=== PATIENT | male | born 1960 | race Caucasian/White ===

== ENCOUNTER → 2017-07-06 | Outpatient (CLI) | payer OTHER ==
[2017-07-06 11:15] LABS: Anion Gap 12 mmol/L; Blood Urea Nitrogen 11 mg/dL (9-20); Calcium 9.7 mg/dL (8.4-10.2); Carbon Dioxide 30 mmol/L (22-30); Chloride 100 mmol/L (98-107); Cholesterol 232 mg/dL (<200); Glucose 102 mg/dL (74-99); HDL Cholesterol 49 mg/dL (40-60); Non-African American GFR(MDRD) >60 (>60 ml/min/1.73 sqM); Potassium 4.7 mmol/L (3.5-5.1); Sodium 142 mmol/L (137-145)
[2017-07-06 12:01] LABS: Hemoglobin A1C 5.2 % (4.2-6.1)
== END | disposition home or self-care (01) ==
LOC: LABWHC1 09:56
PROVIDERS: ATTEND Internal Medicine Endocrinology, Diabetes & Metabolism
DX: E78.00 Pure hypercholesterolemia, unspecified (principal); E55.9 Vitamin D deficiency, unspecified; E06.3 Autoimmune thyroiditis
CPT/HCPCS: 36415; 80048; 80061; 82306; 83036; 84439; 84443

== ENCOUNTER → 2018-02-16 | Outpatient (CLI) | payer OTHER ==
--- NOTE | 2018-02-16 18:24 | CONS ---
CONSULTATION REASON FOR CONSULTATION: This is a consultation note for sleep apnea. HISTORY OF PRESENT ILLNESS: This is a 58-year-old male patient suspected of obstructive sleep apnea based on history of snoring and fragmented sleep. The patient's sleep has been fragmented for many years and he used to work up on frequent occasions, either for urination or for other reasons that are not clear. Never the less, as the patient is taking care of his who has suffered a stroke, he is waking up more for now as he attends to her medical needs and this has caused further fragmentation of his sleep in general. He is currently going to bed around 10:00 pm waking up 6:30 in the morning. He wakes up tired and he is having troubles with drowsiness and sleepiness during the day. He falls asleep during the day. He worries about his sleep too much because of the above- mentioned symptoms. He is coming in for further investigation and there was a concern of him having obstructive sleep apnea. PAST MEDICAL HISTORY: Obesity, hypothyroidism, bronchial asthma, COPD, migraine, anxiety. He has a remote history of obstructive sleep apnea. He was briefly given CPAP therapy in the past. He did not follow up on treatment and he currently he is not undergoing any treatment. He is presenting for evaluation. PAST MEDICAL HISTORY: Includes left calf lump removal in 2005. Left neck lump removal in 2016, cholecystectomy and double hernia repair. OUTPATIENT MEDICATION LIST: Includes [place] 7.5 every 4 hours. Lasix 20 mg p.o. daily. Toprol 50 mg p.o. twice a day, Levoxyl 175 mcg p.o. daily, Effexor 37.5, 1 tablet a day. Xanax 1 mg t.i.d., Nexium 40 mg p.o. daily, Ventolin rescue inhaler on a p.r.n. basis and nortriptyline 20 mg twice a day. DRUG ALLERGIES: THE PATIENT IS ALLERGIC TO BACTRIM, PENICILLIN, SULFA, BIAXIN AND EGGS. SOCIAL HISTORY: He is an ex-smoker. He quit smoking 1994. No history of alcohol and no history of IV drugs. FAMILY HISTORY: Negative for sleep apnea. REVIEW OF SYSTEMS: 12-point review of system was done and positive findings all mentioned above in the history of present illness. Of significance is the absence of any grinding of the teeth. No sleepwalking or sleep talking. He claims to have nightmares. No restlessness lower extremities. No dry mouth. No anxiety or panic attacks. No palpitation. No heartburn. No claustrophobia. PHYSICAL EXAMINATION: BP is 130/79, pulse is 58, respirations 16, temperature 97.8. Saturation 95% on room air. Weight is 267. Height is 5 feet 10 inches. Neck size is 17.5 inches. GENERAL APPEARANCE: Calm, comfortable in no acute distress. Head is atraumatic, normocephalic. NECK: Supple. There is no JVD. No goiter or neck masses. Mallampati class IV. LUNGS: Clear to auscultation. HEART: Sounds are regular rate and rhythm. Normal S1, S2. No S3, S4. No murmurs. ABDOMEN: Soft, nontender. No organomegaly. EXTREMITIES: No edema. No cyanosis or clubbing. SKIN: Negative for any wounds or ulceration. IMPRESSION: 1. Obstructive sleep apnea clinically suspected, under investigation. 2. There is a sleep fragmentation and frequent nocturnal arousals. This is partly related to the social aspects of life as the patient has been taking care of an ill . Obstructive sleep apnea could be also contributing to his sleep fragmentation. 3. Obesity with a BMI of 37.7. 4. Hypothyroidism. 5. Chronic obstructive pulmonary disease/asthma. 6. Migraines. 7. Chronic anxiety. PLAN: 1. Polysomnogram. 2. Weight loss. 3. Encourage improving sleep hygiene measures. 4. We will continue to follow. MAGGIE / LUISN: [id number] /
== END | disposition home or self-care (01) ==
LOC: SLEEP 09:43
PROVIDERS: ATTEND Internal Medicine Critical Care Medicine
DX: R06.83 Snoring (principal); E66.9 Obesity, unspecified; E03.9 Hypothyroidism, unspecified; J44.9 Chronic obstructive pulmonary disease, unspecified; G43.909 Migraine, unspecified, not intractable, without status migrainosus; F41.8 Other specified anxiety disorders; Z68.37 Body mass index [BMI] 37.0-37.9, adult; Z79.891 Long term (current) use of opiate analgesic; Z79.899 Other long term (current) drug therapy; Z88.2 Allergy status to sulfonamides; Z88.0 Allergy status to penicillin; Z91.012 Allergy to eggs
CPT/HCPCS: 99211

== ENCOUNTER 2018-06-09 07:45 | Day surgery (SDC) | payer OTHER ==
[2018-06-02 16:22] VITALS: BMI 38.5
[~2018-06-09 07:45] MED LIST: DEXAMETHASONE SOD PHOSPHATE 10 MG/ML 1 ML VIAL IV ONE; HEPARIN SODIUM,PORCINE 5,000 UNIT/ML 1 ML VIAL SQ ONE; LACTATED RINGERS 1,000 ML IV SCH; LIDOCAINE 1% 20 ML VIAL (10MG/ML) FOR IV START INTRADERMA PRN; MIDAZOLAM 2 MG/2 ML VIAL IV PRN; ONDANSETRON 4 MG/2 ML VIAL IVP ONE; SCOPOLAMINE 1.5MG/72HR PATCH TRANSDERM ONE; ceFAZolin IN SWFI 2 GM/20 ML SYRINGE IVP ONE
[2018-06-09] MEDS ORDERED: LACTATED RINGERS 1,000 ML IV ONE (08:32)
[2018-06-09] MEDS ORDERED: METOPROLOL SUCCINATE (ER) 50 MG TAB.ER.24H PO SCH (09:00)
[2018-06-09] MEDS ORDERED: SUCCINYLCHOLINE CHLORIDE 100 MG/5 ML SYR IV ONE (09:47)
[2018-06-09] MEDS ORDERED: ROCURONIUM BROMIDE 10 MG/ML 10 ML VIAL IV ONE (09:47)
[2018-06-09] MEDS ORDERED: MIDAZOLAM 2 MG/2 ML VIAL ONE (09:47)
[2018-06-09] MEDS ORDERED: GLYCOPYRROLATE 0.2 MG/ML 2 ML VIAL ONE (09:47)
[2018-06-09] MEDS ORDERED: NEOSTIGMINE 1 MG/ML 10 ML VIAL ONE (09:47)
[2018-06-09] MEDS ORDERED: LIDOCAINE 1% INJ 10MG/ML (20 ML MDV) ONE (09:47)
[2018-06-09] MEDS ORDERED: PROPOFOL 10 MG/ML 20 ML VIAL IV ONE (09:47)
[2018-06-09] MEDS ORDERED: fentaNYL (PF) 50 MCG/ML 2 ML AMP ONE (09:47)
[2018-06-09] MEDS ORDERED: ONDANSETRON 4 MG/2 ML VIAL ONE (09:47)
[2018-06-09] MEDS ORDERED: ROPIVACAINE 5 MG/ML 30 ML VIAL MISCELLANE ONE ×2 (10:08)
[2018-06-09] MEDS ORDERED: HYDROcodone/APAP 5-325MG 1 EACH TAB PO PRN (10:39)
[2018-06-09] MEDS ORDERED: NALOXONE 0.4 MG/ML 1 ML VIAL IV PRN (10:39)
--- NOTE | 2018-06-09 10:42 | P.OP ---
Date of Procedure: 06/09/18 Procedure(s) Performed: PREOPERATIVE DIAGNOSIS: Incisional hernia POSTOPERATIVE DIAGNOSIS: Same PROCEDURE: Incisional herniorrhaphy with mesh SURGEON: Daquan EBL: Minimal ANESTHESIA: General COMPLICATIONS: None OPERATIVE PROCEDURE: The patient was placed in the operating table in the supine position. A periumbilical incision was made using the scalpel. The subcutaneous tissues were dissected bluntly. The hernia sac was identified. The umbilical attachments to the fascia were divided using electrocautery. The hernia sac was excised. A 4.3 cm ventral ex mesh was placed beneath the incisional hernia defect which measured approximately 1.5 cm in diameter. The pre-peroneal space was dissected using electrocautery. The mesh was sutured to the fascia using 0 Ethibond transfer fascial sutures. The defect was closed using interrupted vest over pants 0 Ethibond sutures. The subcutaneous tissues were reapproximated using inverted 3-0 Vicryl sutures. The umbilicus was tacked back down to the fascia using a 3-0 Vicryl suture. The skin was closed using 4-0 Monocryl sutures. Steri-Strips and sterile dressings were then applied. DISPOSITION: Stable to recovery room
[2018-06-09 10:57] VITALS: TEMP 97.2
--- NOTE | 2018-06-09 11:09 | P.ONQ ---
Anesthesiology Proc Note - PNB - Peripheral Nerve Block Performed Bilateral Rectus Abdominis Single Procedure Start Time: 08:30 Procedure Stop Time: 08:40 Indication: Acute Post-Operative Pain, Requested by physician Sedation Type: Sedate with meaningful contact maintained Preparation: Sterile Prep Position: Supine Needle Size: 50mm (2") Needle Gauge: 21 Technique: Ultrasound (15ml 0.5% Ropi infiltrated bilaterally)
[2018-06-09] MEDS: fentaNYL (PF) 50 MCG/ML 2 ML AMP IVP ONE ×4 (11:15→11:43)
[2018-06-09 12:09] VITALS: RESP 18
[2018-06-09] MEDS ORDERED: HYDROcodone/APAP 5-325MG 1 EACH TAB PO ONE (12:20)
[2018-06-09 12:56] VITALS: BP 132/82; PULSE 94
== END 2018-06-09 13:29 | disposition home or self-care (01) ==
LOC: OR 07:45
PROVIDERS: ATTEND Surgery
DX: K43.2 Incisional hernia without obstruction or gangrene (principal); E66.9 Obesity, unspecified; Z68.38 Body mass index [BMI] 38.0-38.9, adult; E03.9 Hypothyroidism, unspecified; F41.9 Anxiety disorder, unspecified; G47.33 Obstructive sleep apnea (adult) (pediatric); E78.00 Pure hypercholesterolemia, unspecified; K21.9 Gastro-esophageal reflux disease without esophagitis; J44.9 Chronic obstructive pulmonary disease, unspecified; E11.9 Type 2 diabetes mellitus without complications; K52.9 Noninfective gastroenteritis and colitis, unspecified; Z79.2 Long term (current) use of antibiotics; Z79.890 Hormone replacement therapy; Z79.891 Long term (current) use of opiate analgesic; Z79.899 Other long term (current) drug therapy; Z88.0 Allergy status to penicillin; Z88.2 Allergy status to sulfonamides; Z88.1 Allergy status to other antibiotic agents; Z91.012 Allergy to eggs
CPT/HCPCS: 49560; 49568; 64488; C1781; J2250; J1644; J1100; J2710; J2405; J2001; J3010; J2795; J0330; J2704; J0690

== ENCOUNTER 2018-11-22 11:00 | Observation (INO) | payer OTHER ==
[2018-11-22 11:41] LABS: Basophils % (A) 1 %; Eosinophils # (A) 0.1 k/uL (0-0.7); Eosinophils % (A) 2 %; HCT 47.1 % (39.0-53.0); HGB 15.4 gm/dL (13.0-17.5); Lymphocytes # (A) 1.4 k/uL (1.0-4.8); Lymphocytes % (A) 24 %; MCH 26.7 pg (25.0-35.0); MCHC 32.8 g/dL (31.0-37.0); MCV 81.5 fL (80.0-100.0); Mean Platelet Volume 6.7; Monocytes # (A) 0.4 k/uL (0-1.0); Monocytes % (A) 6 %; Neutrophils # (A) 3.9 k/uL (1.3-7.7); Neutrophils % (A) 65 %; Platelet Count 202 k/uL (150-450); RBC 5.78 m/uL (4.30-5.90); RDW 13.8 % (11.5-15.5)
[2018-11-22 11:45] LABS: Partial Thromboplastin Time 25.5 sec (22.0-30.0); Prothrombin Time 10.3 sec (9.0-12.0)
--- NOTE | 2018-11-22 11:49 | ED ---
Chest Pain HPI - General Chief Complaint: Chest Pain Stated Complaint: HEART PROBLEM Time Seen by Provider: 11/22/18 11:10 Source: patient, RN notes reviewed, old records reviewed Mode of arrival: ambulatory Limitations: no limitations - History of Present Illness Initial Comments: This is a 58-year-old male the ER for evaluation of positive chest pain left shoulder pain left arm pain. Pain rating on his back. Pain rating to his back from his chest. Patient does have history of prior heart disease. No recent travel history no sick contacts does admit to some increased swelling in his legs occasional shortness of breath. Patient states pain goes down the outer side of his left arm all the way into his left fourth and fifth digit. No cough or congestion. No recent fevers. MD Complaint: chest pain -: week(s) Onset: during rest, during exertion, after eating, awoke with symptoms Pain Location: substernal, left chest Pain Radiation: LUE Severity: moderate Severity scale (1-10): 3 Quality: aching, sharp Consistency: constant Improves With: nothing Worsens With: nothing Context: recent immobilization Anginal Symptoms: nausea Other Symptoms: fever Treatments Prior to Arrival: none - Related Data Home Medications Medication Instructions Recorded Confirmed ALPRAZolam [Xanax] 1 mg PO TID 06/20/14 11/22/18 Esomeprazole Magnesium [NexIUM] 40 mg PO DAILY@1200 06/20/14 11/22/18 Furosemide [Lasix] 40 mg PO DAILY 06/20/14 11/22/18 Metoprolol Succinate (ER) [Toprol 50 mg PO BID 06/20/14 11/22/18 XL] Nortriptyline [Pamelor] 20 mg PO HS 06/20/14 11/22/18 Albuterol Inhaler [Ventolin Hfa 1 - 2 puff INHALATION RT-Q6H PRN 06/02/18 Inhaler] Ergocalciferol (Vitamin D2) 50,000 unit PO FR 06/02/18 11/22/18 [Vitamin D2] HYDROcodone/APAP 10-325MG [[place] 1 tab PO QID PRN 06/02/18 11/22/18 10-325] Levothyroxine Sodium [Levoxyl] 200 mcg PO DAILY 06/02/18 11/22/18 Meloxicam [Mobic] 7.5 mg PO DAILY 11/22/18 11/22/18 Allergies Allergy/AdvReac Type Severity Reaction Status Date / Time shellfish derived [Shellfish] Allergy Unknown Swelling Verified 11/22/18 11:43 caffeine Allergy Rapid Verified 11/22/18 11:43 Heart Rate clarithromycin [From Biaxin] Allergy Nausea & Verified 11/22/18 11:43 Vomiting hydromorphone HCl Allergy Vomiting, Verified 11/22/18 11:43 [From Dilaudid] Rash metoclopramide HCl Allergy Vomiting Verified 11/22/18 11:43 [From Reglan] blood Penicillins Allergy Rapid Verified 11/22/18 11:43 Heart Rate Sulfa (Sulfonamide Allergy Rash/Hives, Verified 11/22/18 11:43 Antibiotics) NAUSEA sulfamethoxazole Allergy Nausea & Verified 11/22/18 11:43 [From Bactrim] Vomiting trimethoprim [From Bactrim] Allergy Nausea & Verified 11/22/18 11:43 Vomiting egg AdvReac Nausea & Verified 11/22/18 11:43 Vomiting Iodinated Contrast- Oral and AdvReac Swelling Verified 11/22/18 11:43 IV Dye [Iodinated Contrast Media - IV Dye] Review of Systems ROS Statement: Those systems with pertinent positive or pertinent negative responses have been documented in the HPI. ROS Other: All systems not noted in ROS Statement are negative. EKG Findings - EKG Comments: EKG Findings:: EKG shows normal sinus rhythm rate of 71, MA 174, QRS 96, QTc 412 Past Medical History Past Medical History: Asthma, Chest Pain / Angina, Heart Failure, COPD, Diabetes Mellitus, GERD/Reflux, GI Bleed, Hyperlipidemia, Hypertension, Memory Impairment, Mitral Valve Prolapse (MVP), Sleep Apnea/CPAP/BIPAP, Thyroid Disorder Additional Past Medical History / Comment(s): MIGRAINES,ARRHYTHMIA-RAPID HEART BEAT, CARDIAC BRIDGE, COLITIS, DIVERTICULUTIS, NON ULCER DYSPEPSIA.,SHORT TERM MEMORY LOSS, CYSTS ON LIVER, DDD, BACK PAIN, USES CANE, HYPOGLYCEMIA ., UMBILICAL HERNIA. , PT STATES JUST GETTING OVER A "COLD" WITH A COUGH & SORE THROAT- TAKING CIPRO- PT TO NOTIFY DR CHEEMA IF COLD SYMPTOMS CONTINUE. History of Any Multi-Drug Resistant Organisms: MRSA Date of last positivie culture/infection: 2015 MDRO Source:: SINUS Past Surgical History: Breast Surgery, Cholecystectomy, Heart Catheterization, Hernia Repair, Orthopedic Surgery, Tonsillectomy Additional Past Surgical History / Comment(s): CHEST WALL-LUMP REMOVED, LEFT SHOULDER,LEFT LEG-LUMPECTOMY X 3, BILAT NECK-LUMPECTOMY, KNEE-ARTHROSCOPIC, COLONOSCOPY, EGD, LIVER BX., BREAST LUMPECTOMY. Past Anesthesia/Blood Transfusion Reactions: Motion Sickness, Postoperative Nausea & Vomiting (PONV) Additional Past Anesthesia/Blood Transfusion Reaction / Comment(s): PROBLEM WITH REGLAN GIVEN- VOMITED BLOOD Past Psychological History: Anxiety, Depression Smoking Status: Former smoker Past Alcohol Use History: None Reported Past Drug Use History: None Reported - Past Family History Mother Family Medical History: Cancer Father Family Medical History: Cancer Brother(s) Family Medical History: Cancer General Exam Limitations: no limitations General appearance: alert, in no apparent distress Head exam: Present: atraumatic, normocephalic, normal inspection Eye exam: Present: normal appearance, PERRL, EOMI. Absent: scleral icterus, conjunctival injection, periorbital swelling ENT exam: Present: normal exam, mucous membranes moist Neck exam: Present: normal inspection. Absent: tenderness, meningismus, lymphadenopathy Respiratory exam: Present: normal lung sounds bilaterally. Absent: respiratory distress, wheezes, rales, rhonchi, stridor Cardiovascular Exam: Present: regular rate, normal rhythm, normal heart sounds. Absent: systolic murmur, diastolic murmur, rubs, gallop, clicks GI/Abdominal exam: Present: soft, normal bowel sounds. Absent: distended, tenderness, guarding, rebound, rigid Extremities exam: Present: normal inspection, full ROM, normal capillary refill. Absent: tenderness, pedal edema, joint swelling, calf tenderness Back exam: Present: normal inspection Neurological exam: Present: alert, oriented X3, CN II-XII intact Psychiatric exam: Present: normal affect, normal mood Skin exam: Present: warm, dry, intact, normal color. Absent: rash Course Vital Signs 11/22/18 11:02 Temperature 97.7 F Pulse Rate 72 Respiratory 20 Rate Blood Pressure 151/95 O2 Sat by Pulse 100 Oximetry - Reevaluation(s) Reevaluation #1: 11/22/18 14:50 Medical records reviewed Reevaluation #2: 02/18/19 14:50 Patient still remains a chest pain left arm left shoulder pain Chest Pain MDM - MDM 58 male the ER for evaluation of chest pain. Patient has normal EKG normal troponin and CTA negative, will admit for cardiac observation Critical Care Time Critical Care Time: Yes Total Critical Care Time: 31 Disposition Clinical Impression: Chest pain Disposition: ADMITTED IP TO THIS HOSP Condition: Undetermined Is patient prescribed a controlled substance at d/c from ED?: No
[2018-11-22 11:54] LABS: Creatine Kinase 160 U/L (55-170)
[2018-11-22] MEDS ORDERED: MORPHINE SULFATE 4 MG/ML SYRINGE IVP STA ×2 (11:55→15:12)
[2018-11-22] MEDS ORDERED: methylPREDNISolone SOD SUCCI 125 MG/2 ML VIAL IV STA (11:57)
[2018-11-22] MEDS ORDERED: diphenhydrAMINE 50 MG/ML 1 ML VIAL IVP STA (11:57)
[2018-11-22] MEDS ORDERED: FAMOTIDINE 20 MG/2 ML VIAL IV STA (11:57)
[2018-11-22 12:01] LABS: ALT 33 U/L (21-72); AST 41 U/L (17-59); Albumin 4.3 g/dL (3.5-5.0); Alkaline Phosphatase 30 U/L (38-126); Anion Gap 9 mmol/L; Blood Urea Nitrogen 15 mg/dL (9-20); Calcium 9.4 mg/dL (8.4-10.2); Carbon Dioxide 27 mmol/L (22-30); Chloride 103 mmol/L (98-107); Glucose 99 mg/dL (74-99); Lipase 117 U/L (23-300); Magnesium 1.6 mg/dL (1.6-2.3); Sodium 139 mmol/L (137-145); Total Protein 7.4 g/dL (6.3-8.2)
[2018-11-22 12:05] LABS: Potassium 4.4 mmol/L (3.5-5.1)
[2018-11-22 12:07] LABS: Creatine Kinase MB 4.5 ng/mL (0.0-2.4); Troponin I <0.012 ng/mL (0.000-0.034)
--- NOTE | 2018-11-22 12:07 | XR ---
EXAMINATION TYPE: XR chest 2V DATE OF EXAM: 11/22/2018 COMPARISON: 01/28/2018 HISTORY: 58-year-old male with chest pain and TECHNIQUE: PA and lateral views FINDINGS: Heart normal size. Slight prominence to the aortic knob. Mild interstitial prominence. Slightly low [place] volumes and cardiovascular markings. No ryan consolidation or pleural effusion. IMPRESSION: Hypoventilatory changes. There is prominence to the aortic knob/superior mediastinum. If concern for vascular injury, CT can better evaluate. We note that the patient is already scheduled for a CTA.
--- NOTE | 2018-11-22 13:44 | CT ---
CT CHEST FOR PULMONARY EMBOLISM. EXAMINATION TYPE: CT angio chest DATE OF EXAM: 11/22/2018 INDICATION: shortness of breath CT DLP: 599.5 mGycm, Automated exposure control for dose reduction was used. CONTRAST: Patient injected with 100 mL of Isovue 370. COMPARISON: 04/09/2011 TECHNIQUE: CT of the chest is performed on a spiral scan at 2 mm thick sections. Study is performed with intravenous contrast timed for evaluation for pulmonary embolism. This will limit additional po rtions of the evaluation. 3-D MIP images reconstructed by the technologist are reviewed on the compu ter in the coronal and sagittal planes. FINDINGS: No persistent filling defects are evident to suggest an acute pulmonary embolism. No mediastinal or hilar adenopathy enlarged by CT criteria is evident. The ascending aorta diameter at the level of the main pulmonary artery is 3.7 cm. The main pulmonary artery diameter at the bifur cation is 2.5 cm. Lung windows are clear. Limited CT section through the upper abdomen. There is some scattered hypodensities could reflect hep atic cysts. These were present on the comparison study. IMPRESSIONS: 1. No acute pulmonary embolism.
--- NOTE | 2018-11-22 13:49 | CT ---
EXAMINATION TYPE: CT abdomen pelvis w con DATE OF EXAM: 11/22/2018 COMPARISON: 10/12/2014 INDICATION: shortness of breath DLP: 599.5 mGycm, Automated exposure control for dose reduction was used. CONTRAST: 100 mL of Isovue 370. Study performed without Oral Contrast TECHNIQUE: Axial images were obtained from above the diaphragm to the pubic rami in the axial plane a t 5 mm thick sections. Reconstructed images are reviewed on the computer in the coronal plane. FINDINGS: Limited CT sections are obtained the lung bases. The lung bases are clear. CT ABDOMEN: Liver: Multiple scattered hypodensities are present throughout the liver likely on the basis of hepat ic cysts. These are present on the comparison study. Spleen: Normal Pancreas: Normal Adrenal glands: The adrenal glands are normal. Gallbladder: Surgically absent Kidneys: No masses are evident. No hydronephrosis is present. No cysts are present. Delayed images were obtained through the kidneys, which remain unremarkable. Aorta: Vascular calcification is within the aorta. Inferior vena cava: Normal. CT PELVIS: Loops of bowel within the abdomen and pelvis are normal. Studies performed without oral contrast limiting bowel evaluation. Appendix: Normal as visualized. Urinary bladder: Normal Genitourinary structures: Mild prominence Osseous structures: No suspicious lytic or sclerotic lesions. Degenerative disc changes are present L 5-S1 with vacuum phenomenon. IMPRESSIONS: 1. Multiple hepatic cysts.
[2018-11-22] MEDS ORDERED: NITROGLYCERIN SL TABS 0.4 MG TAB SUBLINGUAL PRN (14:02)
[2018-11-22] MEDS: SODIUM CHLORIDE 0.9% 1,000 ML IV SCH (14:37)
[2018-11-22 16:55] LABS: Glucose,Whole Blood 133 mg/dL (75-99)
[2018-11-22] MEDS ORDERED: ALBUTEROL NEBULIZED 2.5 MG/3 ML INHALATION PRN (18:22)
[2018-11-22] MEDS ORDERED: TEMAZEPAM 15 MG CAP PO PRN (18:24)
[2018-11-22 19:05] LABS: Creatine Kinase 141 U/L (55-170)
[2018-11-22 19:17] LABS: Creatine Kinase MB 3.4 ng/mL (0.0-2.4); Troponin I <0.012 ng/mL (0.000-0.034)
[2018-11-22] MEDS: METOPROLOL SUCCINATE (ER) 50 MG TAB.ER.24H PO SCH ×2 (20:18→21:24)
[2018-11-22] MEDS: HYDROcodone/APAP 10-325MG 1 EACH TAB PO PRN (20:18)
[2018-11-22] MEDS: NORTRIPTYLINE 10 MG CAP PO SCH ×2 (20:19→21:22)
[2018-11-22 20:26] LABS: Glucose,Whole Blood 124 mg/dL (75-99)
--- NOTE | 2018-11-22 21:42 | HP ---
HISTORY AND PHYSICAL DATE OF SERVICE: 11/22/2018 CHIEF COMPLAINT: Chest pain. HISTORY OF PRESENT ILLNESS: This 58-year-old gentleman who had a past medical history of multiple medical problems including asthma, CHF, COPD, sleep apnea, diabetes, GERD, memory impairment , history of mitral valve being followed by Dr. Edwards in the outpatient setting was also being followed by Dr. Darlyn Blankenship. The patient is complaining of chest pain for the last 2 weeks on and off in the anterior part of the chest and also radiates to the back without any relation with exertion radiation. Patient also had some swelling in the legs and patient came to [facility] emergency room and was admitted for further evaluation and treatment. There is no history of fever, rigors. No history of headache, loss of consciousness or seizures. The patient also had sleep apnea study yesterday by Dr. Cortez and was recommended CPAP machine also. PAST MEDICAL HISTORY: Asthma, CHF, COPD, diabetes type 2, GI bleed, hypertension hyperlipidemia, memory impairment, sleep apnea. MEDICATIONS: Prior to admission include home medications are: 1. Pamelor 20 mg q.h.s. 2. Metoprolol 50 mg p.o. b.i.d.. 3. Mobic 7.5 mg p.o. daily. 4. Levoxyl 200 mcg p.o. daily. 5. [place] 10 mg q.i.d. p.r.n. 6. Lasix 40 mg p.o. daily. 7. Nexium 40 mg p.o. daily. 8. Vitamin D2 50,000 Thursday. 9. Ventolin 1-2 puffs q.6h p.r.n. 10.Xanax 1 mg p.o. t.i.d. ALLERGIES: SHELLFISH, [place]. HYDROMORPHONE, PENICILLIN, SULFA, TRIMETHOPRIM, EGG. FAMILY HISTORY: History of cancer in the family. SOCIAL HISTORY: Previous history of smoking. No history current alcohol or smoking. REVIEW OF SYSTEMS: ENT: No diminished vision. No diminished hearing. CARDIOVASCULAR: S1, S2. GI: No nausea or vomiting. : No dysuria. NERVOUS SYSTEM: No numbness or weakness. ALLERGY/IMMUNOLOGY: No asthma or hayfever. HEMATOLOGY/ONCOLOGY: No history of anemia. MUSCULOSKELETAL: No history of anemia. ENDOCRINE: Hypothyroidism. CONSTITUTIONAL: As mentioned earlier. Dermatology: Negative. Rheumatology: Negative. Psychiatry: As mentioned earlier. PHYSICAL EXAMINATION: Alert, oriented x3, pulse is 91, blood pressure 140/98, respiration 18, temperature 98.2, pulse ox 97% on room air. HEENT: Conjunctivae normal. NECK: No jugular venous distention. CARDIOVASCULAR: S1, S2 muffled. Respirations: Breath sounds diminished in the bases. A few scattered rhonchi and crackles. ABDOMEN: Soft, nontender. No mass palpable. Legs no edema. No swelling. NERVOUS SYSTEM: Higher functions as mentioned earlier. Moves all four extremities. No focal deficits. Lymphatics: No lymph nodes palpable in the neck, axillae or groin. JOINT: No active deforming arthropathy. LABS: CBC within normal limites. Glucose 130. The alkaline phosphatase is 30. ASSESSMENT: 1. Chest pain possible unstable angina. 2. Possible sleep apnea. 3. Obesity with body mass of 40.2. 4. History of asthma, chronic obstructive pulmonary disease. 5. History of congestive heart failure. 6. History of diabetes, history of gastroesophageal reflux disease. 7. History of gastrointestinal bleeding. 8. Hypertension. 10.Mitral valve prolapse. 11.History of hypothyroidism. 12.History of migraines. 13.History of breast surgery. 14.History of cholecystectomy. 15.History of anxiety, depression. 16.Remote history of nicotine dependence. RECOMMENDATIONS AND DISCUSSION: In this 58-year-old gentleman who presented with multiple complex medical issues , we will monitor the patient closely, continue the current medications, management and symptomatic treatment. We will resume the home medications. I would also recommend Cardiology consultation. Also recommend CPAP and also recommend BiPAP and outpatient follow up with Dr. Barba. Otherwise prognosis guarded because of multiple complex medical issues. Further recommendations to follow. MMODL / IJN: [id number] / HEATHER
[2018-11-22] MEDS: ALPRAZolam 1 MG TAB PO SCH ×2 (21:54→22:04)
[2018-11-23] MEDS: SODIUM CHLORIDE 0.9% 1,000 ML IV SCH (01:02)
[2018-11-23 01:34] LABS: Creatine Kinase 120 U/L (55-170)
[2018-11-23 01:38] LABS: Creatine Kinase MB 3.1 ng/mL (0.0-2.4); Troponin I <0.012 ng/mL (0.000-0.034)
[2018-11-23] MEDS: HYDROcodone/APAP 10-325MG 1 EACH TAB PO PRN ×2 (03:49→12:15)
[2018-11-23] MEDS ORDERED: LEVOTHYROXINE 100 MCG TAB PO SCH (06:30)
[2018-11-23 06:42] LABS: Glucose,Whole Blood 124 mg/dL (75-99)
[2018-11-23 06:51] LABS: Basophils % (A) 0 %; Eosinophils # (A) 0.1 k/uL (0-0.7); Eosinophils % (A) 0 %; HCT 46.3 % (39.0-53.0); HGB 14.8 gm/dL (13.0-17.5); Lymphocytes # (A) 0.9 k/uL (1.0-4.8); Lymphocytes % (A) 5 %; MCV 84.4 fL (80.0-100.0); Mean Platelet Volume 6.6; Monocytes # (A) 0.5 k/uL (0-1.0); Monocytes % (A) 3 %; Neutrophils # (A) 15.4 k/uL (1.3-7.7); Neutrophils % (A) 91 %; Platelet Count 222 k/uL (150-450); RBC 5.48 m/uL (4.30-5.90); RDW 13.9 % (11.5-15.5); WBC 16.9 k/uL (3.8-10.6)
[2018-11-23 07:00] LABS: Anion Gap 8 mmol/L; Blood Urea Nitrogen 15 mg/dL (9-20); Calcium 9.5 mg/dL (8.4-10.2); Carbon Dioxide 28 mmol/L (22-30); Chloride 105 mmol/L (98-107); Cholesterol 282 mg/dL (<200); Glucose 133 mg/dL (74-99); HDL Cholesterol 44 mg/dL (40-60); LDL Cholesterol,Calculated 200 mg/dL (0-99); Potassium 4.7 mmol/L (3.5-5.1); Sodium 141 mmol/L (137-145); Triglycerides 190 mg/dL (<150)
[2018-11-23 07:30] VITALS: RESP 18; TEMP 97.8
[2018-11-23] MEDS ORDERED: PANTOPRAZOLE 40 MG TABLET PO SCH ×2 (07:30→12:00)
[2018-11-23] MEDS ORDERED: DOBUTamine DRIP for NUC MED 500 MG in DEXTROSE/WATER 1 250ML.BAG IV ONE (08:45)
[2018-11-23] MEDS ORDERED: ASPIRIN 325 MG TAB PO SCH (09:00)
[2018-11-23] MEDS ORDERED: MELOXICAM 7.5 MG TAB PO SCH (09:00)
[2018-11-23] MEDS ORDERED: FUROSEMIDE 40 MG TAB PO SCH (09:00)
--- NOTE | 2018-11-23 11:00 | P.CRDCN ---
History of Present Illness History of present illness: This is a pleasant 58-year-old male past medical history significant for diabetes, hypertension, dyslipidemia, hypothyroidism and obstructive sleep apnea. He follows in the office with Dr. Blankenship. He has no obstructive coronary artery disease per cardiac catheterization performed in 2008. He presented to the hospital with symptoms of chest discomfort. He describes a burning sensation in the midsternal region with radiation through to the back with symptoms of numbness and tingling down the left arm and into the left fingers at times. He states this is been going off-and-on for approximately one week. He also describes he has gained approximately 40 pounds in the previous few months. He saw Dr. Blankenship in the office in August and at that time he was also complaining of weight gain however at that time was only about 6-7 pounds. He denies PND or orthopnea. He denies significant exertional shortness of breath. He states his pain is not related to exertion and has been intermittent is no specific aggravating or alleviating factor. He denies associated shortness of breath, dizziness, palpitations, nausea, vomiting or diaphoresis. He saw his director of front office yesterday and they are in the midst of possibly adjusting his Levoxyl. At the time of my exam he is seen resting comfortably in bed in no acute distress. He denies any acute symptoms of chest discomfort at this time. EKG reveals sinus mechanism with no acute ST or T wave abnormalities noted. Chest x-ray reveals evidence of hypoventilatory changes, prominence to the aortic knob, or mediastinum. CTA chest negative for PE, ascending aorta at the level of main pulmonary artery 3.7 cm. Laboratory data reviewed, WBC 16.9, hgb 14.8, plt 222, sodium 141, potassium 4.7, creatinine 0.83, cardiac enzymes negative x3, LDL 200, HDL 44, NTproBNP 38, TSH 0.502. Current cardiac medications include Lasix 40 mg daily and Toprol 50 mg twice a day. 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 Most recent stress test performed in the office October 2017 with a Lexiscan stress test with no evidence of reversible cardiac ischemia. Most recent echo in the office performed 10/2017 revealed preserved LV systolic function with EF 55%, moderately increase PASP. At the time of my exam: CONSTITUTIONAL: Denies fever. Denies chills. EYES: Denies blurred vision. Denies vision changes. Denies eye pain. EARS, NOSE, MOUTH & THROAT: Denies headache. Denies sore throat. Denies ear pain. CARDIOVASCULAR: Denies chest pain. Denies shortness of breath. Denies orthopnea. Denies PND. Denies palpitations. RESPIRATORY: Denies cough. GASTROINTESTINAL: Denies abdominal pain. Denies diarrhea. Denies constipation. Denies nausea. Denies vomiting. MUSCULOSKELETAL: Denies myalgias. INTEGUMENTARY: Denies pruitis. Denies rash. NEUROLOGIC: Denies numbness. Denies tingling. Denies weakness. PSYCHIATRIC: Denies anxiety. Denies depression. ENDOCRINE: Denies fatigue. Denies weight change. Denies polydipsia. Denies polyurina. GENITOURINARY: Denies burning, hematuria or urgency with micturation. HEMATOLOGIC: Denies history of anemia. Denies bleeding. Blood pressure 129/82 heart rate 81 afebrile maintaining oxygen saturation on room air GENERAL: This is a 58-year-old male in no apparent distress at the time of my examination. HEENT: Head is atraumatic, normocephalic. Pupils are equal, round. Sclerae anicteric. Conjunctivae are clear. Mucous membranes of the mouth are moist. Neck is supple. There is no jugular venous distention. No carotid bruit is heard. LUNGS: Clear to auscultation no wheezes, rales or rhonchi. No chest wall tenderness is noted on palpation or with deep breathing. HEART: Regular rate and rhythm without murmurs, rubs or gallops. S1 and S2 heard. ABDOMEN: Soft, nontender. Bowel sounds are heard. No organomegaly noted. EXTREMITIES: No evidence of peripheral edema and no calf tenderness noted. VASCULAR: Radial and dorsalis pedis pulses palpated, no evidence of clubbing. NEUROLOGIC: Patient is awake, alert and oriented x3. ASSESSMENT Chest pain, atypical for angina. An acute event has been ruled out. Recent 40 lb weight gain in the last few months Hypertension Pulmonary hypertension Dyslipidemia, not treated. He has taken lipitor in the past that caused him GI upset and has been attempting lifestyle modifications recently. Hypothyroidism PLAN An acute coronary event has been ruled out with no EKG evidence of ischemia and negative cardiac enzymes. Obtain 2-D echocardiogram and Doppler study to assess cardiac structure and function. Perform debridement stress echocardiogram to assess her stress induced cardiac ischemia. Check hgb A1C. Recommend him to try rosuvastatin daily. Risks of elevated LDL explained to him in great detail. Prescription will be provided. If stress test is normal he is stable from a cardiac perspective, if abnormal we will consider coronary angiography. Ongoing medical management per primary care team. Follow up with Dr. Blankenship upon discharge. Thank you kindly for this consultation. Nurse Practitioner note has been reviewed, I agree with a documented findings and plan of care. Patient was seen and examined. Past Medical History Past Medical History: Asthma, Chest Pain / Angina, Heart Failure, COPD, Diabetes Mellitus, GERD/Reflux, GI Bleed, Hyperlipidemia, Hypertension, Memory Impairment, Mitral Valve Prolapse (MVP), Sleep Apnea/CPAP/BIPAP, Thyroid Disorder Additional Past Medical History / Comment(s): MIGRAINES,ARRHYTHMIA-RAPID HEART BEAT, CARDIAC BRIDGE, COLITIS, DIVERTICULUTIS, NON ULCER DYSPEPSIA.,SHORT TERM MEMORY LOSS, CYSTS ON LIVER, DDD, BACK PAIN, USES CANE, HYPOGLYCEMIA ., UMBILICAL HERNIA. , PT STATES JUST GETTING OVER A "COLD" WITH A COUGH & SORE THROAT- TAKING CIPRO- PT TO NOTIFY DR CHEEMA IF COLD SYMPTOMS CONTINUE. History of Any Multi-Drug Resistant Organisms: MRSA Date of last positivie culture/infection: 2015 MDRO Source:: SINUS Past Surgical History: Breast Surgery, Cholecystectomy, Heart Catheterization, Hernia Repair, Orthopedic Surgery, Tonsillectomy Additional Past Surgical History / Comment(s): CHEST WALL-LUMP REMOVED, LEFT SHOULDER,LEFT LEG-LUMPECTOMY X 3, BILAT NECK-LUMPECTOMY, KNEE- ARTHROSCOPIC,COLONOSCOPY, EGD, LIVER BX., BREAST LUMPECTOMY. Past Anesthesia/Blood Transfusion Reactions: Motion Sickness, Postoperative Nausea & Vomiting (PONV) Additional Past Anesthesia/Blood Transfusion Reaction / Comment(s): PROBLEM WITH REGLAN GIVEN- VOMITED BLOOD Past Psychological History: Anxiety, Depression Smoking Status: Former smoker Past Alcohol Use History: None Reported Additional Past Alcohol Use History / Comment(s): quit 25 years ago, had smoked 15 years 2 ppd Past Drug Use History: None Reported - Past Family History Mother Family Medical History: Cancer Father Family Medical History: Cancer Brother(s) Family Medical History: Cancer Medications and Allergies Home Medications Medication Instructions Recorded Confirmed Type ALPRAZolam [Xanax] 1 mg PO TID 06/20/14 11/22/18 History Esomeprazole Magnesium [NexIUM] 40 mg PO DAILY@1200 06/20/14 11/22/18 History Furosemide [Lasix] 40 mg PO DAILY 06/20/14 11/22/18 History Metoprolol Succinate (ER) [Toprol 50 mg PO BID 06/20/14 11/22/18 History XL] Nortriptyline [Pamelor] 20 mg PO HS 06/20/14 11/22/18 History Albuterol Inhaler [Ventolin Hfa 1 - 2 puff INHALATION RT-Q6H PRN 06/02/18 11/22/18 History Inhaler] Ergocalciferol (Vitamin D2) 50,000 unit PO FR 06/02/18 11/22/18 History [Vitamin D2] HYDROcodone/APAP 10-325MG [Mccrory 1 tab PO QID PRN 06/02/18 11/22/18 History 10-325] Levothyroxine Sodium [Levoxyl] 200 mcg PO DAILY 06/02/18 11/22/18 History Meloxicam [Mobic] 7.5 mg PO DAILY 11/22/18 11/22/18 History Allergies Allergy/AdvReac Type Severity Reaction Status Date / Time shellfish derived [Shellfish] Allergy Unknown Swelling Verified 11/22/18 11:43 caffeine Allergy Rapid Verified 11/22/18 11:43 Heart Rate clarithromycin [From Biaxin] Allergy Nausea & Verified 11/22/18 11:43 Vomiting hydromorphone HCl Allergy Vomiting, Verified 11/22/18 11:43 [From Dilaudid] Rash metoclopramide HCl Allergy Vomiting Verified 11/22/18 11:43 [From Reglan] blood Penicillins Allergy Rapid Verified 11/22/18 11:43 Heart Rate Sulfa (Sulfonamide Allergy Rash/Hives, Verified 11/22/18 11:43 Antibiotics) NAUSEA sulfamethoxazole Allergy Nausea & Verified 11/22/18 11:43 [From Bactrim] Vomiting trimethoprim [From Bactrim] Allergy Nausea & Verified 11/22/18 11:43 Vomiting egg AdvReac Nausea & Verified 11/22/18 11:43 Vomiting Iodinated Contrast- Oral and AdvReac Swelling Verified 11/22/18 11:43 IV Dye [Iodinated Contrast Media - IV Dye] Physical Exam Vitals: Vital Signs Temp Pulse Pulse Resp BP BP Pulse Ox 11/23/18 07:49 97 11/23/18 07:15 97.8 F 81 18 129/82 98 11/23/18 04:00 94 16 11/23/18 03:57 97.5 F L 94 16 153/80 98 11/23/18 00:00 100 18 11/22/18 23:43 97.7 F 100 18 159/74 96 11/22/18 20:00 94 16 11/22/18 19:52 97.4 F L 94 16 114/73 95 11/22/18 17:26 98.3 F 85 18 163/83 97 11/22/18 16:41 91 8 L 146/98 96 11/22/18 15:32 89 18 144/92 11/22/18 11:02 97.7 F 72 20 151/95 100 Intake and Output 11/22/18 11/23/18 11/23/18 22:59 06:59 14:59 Intake Total 118 Balance 118 Intake: Oral 118 Other: # Voids 2 Results 11/23/18 06:24 11/23/18 06:24 Cardiac Enzymes 11/22/18 11/22/18 11/22/18 Range/Units 11:25 11:25 18:12 AST 41 (17-59) U/L CK-MB (CK-2) 4.5 H 3.4 H (0.0-2.4) ng/mL Troponin I <0.012 <0.012 (0.000-0.034) ng/mL 11/22/18 Range/Units 23:25 AST (17-59) U/L CK-MB (CK-2) 3.1 H (0.0-2.4) ng/mL Troponin I <0.012 (0.000-0.034) ng/mL Coagulation 11/22/18 Range/Units 11:25 PT 10.3 (9.0-12.0) sec APTT 25.5 (22.0-30.0) sec Lipids 11/23/18 Range/Units 06:24 Triglycerides 190 H (<150) mg/dL Cholesterol 282 H (<200) mg/dL HDL Cholesterol 44 (40-60) mg/dL CBC 11/22/18 11/23/18 Range/Units 11:25 06:24 WBC 6.0 16.9 H (3.8-10.6) k/uL RBC 5.78 5.48 (4.30-5.90) m/uL Hgb 15.4 14.8 (13.0-17.5) gm/dL Hct 47.1 46.3 (39.0-53.0) % Plt Count 202 222 (150-450) k/uL Comprehensive Metabolic Panel 11/22/18 11/23/18 Range/Units 11:25 06:24 Sodium 139 141 (137-145) mmol/L Potassium 4.4 4.7 (3.5-5.1) mmol/L Chloride 103 105 (98-107) mmol/L Carbon Dioxide 27 28 (22-30) mmol/L BUN 15 15 (9-20) mg/dL Creatinine 0.90 0.83 (0.66-1.25) mg/dL Glucose 99 133 H (74-99) mg/dL Calcium 9.4 9.5 (8.4-10.2) mg/dL AST 41 (17-59) U/L ALT 33 (21-72) U/L Alkaline Phosphatase 30 L (38-126) U/L Total Protein 7.4 (6.3-8.2) g/dL Albumin 4.3 (3.5-5.0) g/dL Current Medications Generic Name Dose Route Start Last Admin Trade Name Freq PRN Reason Stop Dose Admin Hydrocodone Bitart/Acetaminophen 1 each 11/22/18 18:22 11/23/18 03:49 Mccrory 10 PO 1 each QID PRN Administration Pain Albuterol Sulfate 2.5 mg 11/22/18 18:22 Ventolin Nebulized INHALATION RT-Q6H PRN Shortness Of Breath Alprazolam 1 mg 11/22/18 22:00 11/22/18 22:04 Xanax PO 1 mg TID MARCIN Administration Aspirin 325 mg 11/23/18 09:00 Aspirin PO DAILY [facility] Ergocalciferol 50,000 unit 11/26/18 09:00 Vitamin D2 PO FR [facility] Furosemide 40 mg 11/23/18 09:00 Lasix PO DAILY [facility] Sodium Chloride 1,000 mls @ 100 mls/hr 11/22/18 14:15 11/23/18 01:02 Saline 0.9% IV 100 mls/hr .Q10H MARCIN Administration Levothyroxine Sodium 200 mcg 11/23/18 06:30 11/23/18 05:40 Synthroid PO Not Given DAILY@0630 [facility] Meloxicam 7.5 mg 11/23/18 09:00 Mobic PO DAILY [facility] Metoprolol Succinate 50 mg 11/22/18 21:00 11/22/18 21:24 Toprol Xl PO 50 mg BID [facility] Administration Nitroglycerin 0.4 mg 11/22/18 14:02 Nitrostat SUBLINGUAL Q5M PRN Chest Pain Nortriptyline HCl 20 mg 11/22/18 21:00 11/22/18 21:22 Pamelor PO Not Given HS [facility] Pantoprazole Sodium 40 mg 11/23/18 12:00 Protonix PO DAILY@1200 [facility] Temazepam 15 mg 11/22/18 18:24 Restoril PO HS PRN Insomnia Intake and Output 11/22/18 11/23/18 11/23/18 22:59 06:59 14:59 Intake Total 118 Balance 118 Intake: Oral 118 Other: # Voids 2 11/23/18 06:24 11/23/18 06:24
--- NOTE | 2018-11-23 11:37 | ECHOF ---
Referral Reason:cp MEASUREMENTS -------- HEIGHT: 177.8 cm WEIGHT: 127.0 kg BP: 129/82 RVIDd: 3.7 cm (< 3.3) IVSd: 1.5 cm (0.6 - 1.1) LVIDd: 3.9 cm (3.9 - 5.3) LVPWd: 1.5 cm (0.6 - 1.1) IVSs: 1.9 cm LVIDs: 2.6 cm LVPWs: 1.7 cm LA Diam: 3.1 cm (2.7 - 3.8) LAESV Index (A-L): 20.89 ml/m Ao Diam: 3.5 cm (2.0 - 3.7) AV Cusp: 2.5 cm (1.5 - 2.6) MV EXCURSION: 15.488 mm (> 18.000) MV EF SLOPE: 80 mm/s (70 - 150) EPSS: 0.6 cm MV E Zurdo: 0.70 m/s MV DecT: 217 ms MV A Zurdo: 0.86 m/s MV E/A Ratio: 0.82 FINDINGS -------- Sinus rhythm. This was a technically difficult study with suboptimal views. The left ventricular size is normal. There is moderate concentric left ventricular hypertrophy. O verall left ventricular systolic function is normal with, an EF between 60 - 65 %. The right ventricle is mildly enlarged. Normal LA size by volume 22+/-6 ml/m2. The right atrium is normal in size. 5 ml of Lumason was utilized for enhancement of images. There is mild aortic valve sclerosis. The mitral valve is normal. The tricuspid valve appears structurally normal. The pulmonic valve was not well visualized. The aortic root size is normal. IVC Not well visulized. There is no pericardial effusion. CONCLUSIONS -------- 1. Sinus rhythm. 2. This was a technically difficult study with suboptimal views. 3. The left ventricular size is normal. 4. There is moderate concentric left ventricular hypertrophy. 5. Overall left ventricular systolic function is normal with, an EF between 60 - 65 %. 6. The right ventricle is mildly enlarged. 7. Normal LA size by volume 22+/-6 ml/m2. 8. The right atrium is normal in size. 9. 5 ml of Lumason was utilized for enhancement of images. 10. There is mild aortic valve sclerosis. 11. The mitral valve is normal. 12. The tricuspid valve appears structurally normal. 13. The pulmonic valve was not well visualized. 14. The aortic root size is normal. 15. IVC Not well visulized. 16. There is no pericardial effusion. BRAND ADVOCATE: Monique Mondragon RDCS
[2018-11-23 12:09] LABS: Glucose,Whole Blood 109 mg/dL (75-99)
[2018-11-23] MEDS: METOPROLOL SUCCINATE (ER) 50 MG TAB.ER.24H PO SCH (12:12)
--- NOTE | 2018-11-23 12:15 | ECHOS ---
STRESS ECHOCARDIOGRAM INDICATIONS: Chest pain. MEDICATIONS: Metoprolol. BASELINE HEART RATE: 95 BASELINE BLOOD PRESSURE: 144/72 MAXIMUM HEART RATE: 147 MAXIMUM BLOOD PRESSURE: 151/83 85% MPHR: 137 100% MPHR: 161 MAXIMUM STAGE REACHED: I TOTAL EXERCISE TIME: 4:29 CLINICAL INFORMATION: STRESS DATA: Pretesting physical exam showed a heart rate 95, pressure is 144/72 mmHg. Baseline EKG showed sinus mechanism. Dobutamine infusion at a dose of 10 mcg/kg per minute was initiated and increased to 20 mcg/kg per minute. Max heart rate was 147. She is about 91% of maximum predicted heart rate. The patient clinically did not have any symptoms of chest pain or chest discomfort and the EKG did not show any significant ST or T-wave abnormalities concerning for ischemia. ECHOCARDIOGRAM IMAGES: On echocardiogram images from parasternal long axis view, parasternal short axis view, apical 4 chamber view and apical 2 chamber view, the baseline images, at low dose dobutamine, at peak heart rate, as well as on recovery; the echocardiogram images showed good augmentation in the left ventricular systolic function without any evidence of wall motion abnormalities concerning for ischemia. CONCLUSION: 1. Normal EKG in response to dobutamine. 2. Normal echocardiogram in response to dobutamine. 3. Essentially normal echocardiogram. MMODL / IJN: [id number] /
[2018-11-23 12:26] VITALS: BP 181/65; PULSE 103
[2018-11-23 17:45] LABS: Hemoglobin A1C 5.4 % (4.0-6.0)
--- NOTE | 2018-11-24 07:37 | DS ---
DISCHARGE SUMMARY DATE OF SERVICE: 11/23/2018. FINAL DIAGNOSES: 1. Chest pain possibly musculoskeletal, negative stress test. 2. Possible sleep apnea. 3. Obesity with body mass index of 40.2. 4. History of asthma, chronic obstructive pulmonary disease. 5. History of congestive heart failure. 6. History of diabetes mellitus. 7. History of gastroesophageal reflux disease. 8. History of gastrointestinal bleed. 9. Hypertension. 10.Mitral valve prolapse. 11.Hypothyroidism. 12.History of migraines. 13.History of breast surgery. 14.History of cholecystectomy. 15.Anxiety, depression. 16.Remote history of nicotine dependence. DISCHARGE DISPOSITION: The patient will be discharged in stable condition with guarded prognosis. HISTORY OF PRESENT ILLNESS: This is a 58-year-old gentleman with a past medical history of multiple medical problems being followed by Dr. Edwards in the outpatient setting was admitted with chest pain, myocardial infarction ruled out. Cardiology performed stress test, which was negative. Patient also had several symptoms of sleep apnea. Recommend a close follow up with Dr. Cortez and use CPAP at home. The patient also had a 2-D echo with Doppler while in the hospital and the 2-D echo showed ejection fraction 60% to 65% and no other abnormalities. The right ventricle was mildly enlarged. On exam, vitals are stable. CARDIOVASCULAR: S1, S2 muffled. ABDOMEN: Soft. NERVOUS SYSTEM: No focal deficits. DISCHARGE ADVICE: 1. Diet is cardiac. 2. Activity limited until followup. 3. Follow up with Dr. Edwards in 2 to 3 days. 4. Follow up with Cardiology and Pulmonology as recommended. MEDICATIONS: 1. Albuterol 1 to 2 puffs q.6 p.r.n. 2. Xanax 1 mg p.o. t.i.d. 3. Vitamin D2, 50,000, p.o. Thursday. 4. Nexium 40 mg p.o. daily. 5. Lasix 40 mg p.o. daily. 6. Boissevain 10 mg q.i.d. p.r.n. 7. Levoxyl 200 mcg p.o. daily. 8. Mobic 7.5 mg p.o. daily. 9. Toprol XL 50 mg p.o. b.i.d. 10.Pamelor 10 mg q.h.s. 11.Crestor 10 mg p.o. q.h.s. MAGGIE / MIKHAIL: [id number] / MTDMarisol
[2018-11-26] MEDS ORDERED: ERGOCALCIFEROL 50,000 UNIT CAP PO SCH (09:00)
== END 2018-11-23 15:00 | disposition home or self-care (01) ==
LOC: EC 11:00 → 1SOBS 14:02
PROVIDERS: ADMIT Hospitalist; ATTEND Hospitalist
DX: R07.89 Other chest pain (principal); R20.2 Paresthesia of skin; R20.0 Anesthesia of skin; M79.602 Pain in left arm; M25.512 Pain in left shoulder; R11.0 Nausea; R50.9 Fever, unspecified; E66.9 Obesity, unspecified; Z68.41 Body mass index [BMI] 40.0-44.9, adult; J44.9 Chronic obstructive pulmonary disease, unspecified; I11.0 Hypertensive heart disease with heart failure; I50.9 Heart failure, unspecified; E11.9 Type 2 diabetes mellitus without complications; K21.9 Gastro-esophageal reflux disease without esophagitis; I34.1 Nonrheumatic mitral (valve) prolapse; E03.9 Hypothyroidism, unspecified; G43.909 Migraine, unspecified, not intractable, without status migrainosus; Z90.49 Acquired absence of other specified parts of digestive tract; F41.9 Anxiety disorder, unspecified; F32.9 Major depressive disorder, single episode, unspecified; Z87.891 Personal history of nicotine dependence; R41.3 Other amnesia; Z87.19 Personal history of other diseases of the digestive system; E78.5 Hyperlipidemia, unspecified; I27.20 Pulmonary hypertension, unspecified; Z86.14 Personal history of Methicillin resistant Staphylococcus aureus infection; Z79.899 Other long term (current) drug therapy; Z79.1 Long term (current) use of non-steroidal anti-inflammatories (NSAID); Z79.890 Hormone replacement therapy; Z91.012 Allergy to eggs; Z88.5 Allergy status to narcotic agent; Z88.0 Allergy status to penicillin; Z91.013 Allergy to seafood; Z88.2 Allergy status to sulfonamides; Z88.8 Allergy status to other drugs, medicaments and biological substances; Z91.041 Radiographic dye allergy status; Z91.018 Allergy to other foods; Z80.9 Family history of malignant neoplasm, unspecified
CPT/HCPCS: 93005 ×2; 96376; 96361; 96374; 96375; 99291; 36415; 94760; 83880; 80061; 80053; 80048; 84443; 82550; 82553; 83690; 83735; 84484; 85025 ×2; 85610; 85730; 83036; 71046; 71275; 74177; G0378 ×2; C8929; C8930; J1250; J2270; J1200; J2930; Q9950; Q9967; 93306; 93351

== ENCOUNTER → 2019-01-11 | Outpatient (CLI) | payer OTHER ==
[2019-01-11 16:25] LABS: Basophils # (A) 0.1 k/uL (0-0.2); Basophils % (A) 1 %; Eosinophils # (A) 0.2 k/uL (0-0.7); Eosinophils % (A) 3 %; HCT 46.6 % (39.0-53.0); HGB 14.8 gm/dL (13.0-17.5); Lymphocytes % (A) 25 %; MCH 26.1 pg (25.0-35.0); MCHC 31.9 g/dL (31.0-37.0); Monocytes # (A) 0.6 k/uL (0-1.0); Monocytes % (A) 7 %; Neutrophils % (A) 62 %; Platelet Count 190 k/uL (150-450); RBC 5.68 m/uL (4.30-5.90); RDW 13.7 % (11.5-15.5)
[2019-01-11 23:29] LABS: Calcium 9.5 mg/dL (8.7-10.3); Carbon Dioxide 34.3 mmol/L (21.6-31.8); Chloride 101 mmol/L (96-109); Cholesterol 267 mg/dL (0-200); Glucose 88 mg/dL (70-110); Potassium 4.1 mmol/L (3.5-5.5); Sodium 143 mmol/L (135-145)
== END | disposition home or self-care (01) ==
LOC: LABWHC1 13:46
PROVIDERS: ATTEND Internal Medicine Endocrinology, Diabetes & Metabolism
DX: E78.2 Mixed hyperlipidemia (principal); E55.9 Vitamin D deficiency, unspecified; E06.3 Autoimmune thyroiditis
CPT/HCPCS: 36415; 80048; 80061; 83721; 84439; 84443; 85025

== ENCOUNTER → 2019-02-15 | Outpatient (CLI) | payer OTHER ==
[2019-02-15 09:56] LABS: Basophils # (A) 0.1 k/uL (0-0.2); Basophils % (A) 1 %; Eosinophils # (A) 0.2 k/uL (0-0.7); Eosinophils % (A) 3 %; HCT 49.6 % (39.0-53.0); HGB 15.5 gm/dL (13.0-17.5); Lymphocytes # (A) 1.2 k/uL (1.0-4.8); Lymphocytes % (A) 20 %; MCHC 31.3 g/dL (31.0-37.0); MCV 83.2 fL (80.0-100.0); Monocytes # (A) 0.5 k/uL (0-1.0); Monocytes % (A) 8 %; Neutrophils % (A) 66 %; Platelet Count 184 k/uL (150-450); RBC 5.95 m/uL (4.30-5.90); RDW 14.1 % (11.5-15.5)
[2019-02-15 10:17] LABS: ALT 27 U/L (21-72); AST 28 U/L (17-59); Albumin 4.6 g/dL (3.5-5.0); Alkaline Phosphatase 37 U/L (38-126); Anion Gap 10 mmol/L; Blood Urea Nitrogen 14 mg/dL (9-20); Calcium 9.5 mg/dL (8.4-10.2); Carbon Dioxide 31 mmol/L (22-30); Chloride 101 mmol/L (98-107); Cholesterol 127 mg/dL (<200); Glucose 102 mg/dL (74-99); HDL Cholesterol 40 mg/dL (40-60); LDL Cholesterol,Calculated 52 mg/dL (0-99); Potassium 4.3 mmol/L (3.5-5.1); Sodium 142 mmol/L (137-145); Total Bilirubin 0.8 mg/dL (0.2-1.3); Total Protein 7.3 g/dL (6.3-8.2); Triglycerides 175 mg/dL (<150)
[2019-02-15 10:32] LABS: T4, Free (Free Thyroxine) 1.23 ng/dL (0.78-2.19)
== END | disposition home or self-care (01) ==
LOC: LAB 08:51
PROVIDERS: ATTEND Internal Medicine Endocrinology, Diabetes & Metabolism
DX: E06.3 Autoimmune thyroiditis (principal); E55.9 Vitamin D deficiency, unspecified
CPT/HCPCS: 80053; 80061; 82306; 84439; 84443; 85025

== ENCOUNTER → 2019-05-26 | Outpatient (CLI) | payer OTHER ==
[2019-05-26 11:59] LABS: Basophils % (A) 1 %; Eosinophils # (A) 0.1 k/uL (0-0.7); Eosinophils % (A) 2 %; HGB 15.1 gm/dL (13.0-17.5); Lymphocytes # (A) 1.4 k/uL (1.0-4.8); Lymphocytes % (A) 22 %; MCH 26.3 pg (25.0-35.0); MCHC 32.1 g/dL (31.0-37.0); MCV 82.1 fL (80.0-100.0); Mean Platelet Volume 7.7; Monocytes # (A) 0.4 k/uL (0-1.0); Monocytes % (A) 7 %; Neutrophils # (A) 4.3 k/uL (1.3-7.7); Neutrophils % (A) 67 %; Platelet Count 173 k/uL (150-450); RBC 5.73 m/uL (4.30-5.90); RDW 13.8 % (11.5-15.5); WBC 6.4 k/uL (3.8-10.6)
[2019-05-26 17:48] LABS: African American GFR (CKD) 94.4 (60.0-200.0); Anion Gap 9.7 mmol/L (4.00-12.00); Calcium 9.3 mg/dL (8.7-10.3); Carbon Dioxide 29.3 mmol/L (21.6-31.8); Potassium 4.4 mmol/L (3.5-5.5)
== END | disposition home or self-care (01) ==
LOC: LABWHC1 10:58
PROVIDERS: ATTEND Internal Medicine Endocrinology, Diabetes & Metabolism
DX: E78.00 Pure hypercholesterolemia, unspecified (principal); E55.9 Vitamin D deficiency, unspecified; E06.3 Autoimmune thyroiditis
CPT/HCPCS: 36415; 80048; 80061; 82306; 84439; 84443; 85025

== ENCOUNTER → 2019-10-03 | Outpatient (CLI) | payer OTHER ==
[2019-10-03 11:49] LABS: Basophils % (A) 1 %; Eosinophils # (A) 0.1 k/uL (0-0.7); Eosinophils % (A) 1 %; HGB 15.8 gm/dL (13.0-17.5); Lymphocytes # (A) 1.3 k/uL (1.0-4.8); Lymphocytes % (A) 22 %; MCH 26.7 pg (25.0-35.0); MCHC 31.6 g/dL (31.0-37.0); MCV 84.5 fL (80.0-100.0); Mean Platelet Volume 8.3; Monocytes # (A) 0.4 k/uL (0-1.0); Monocytes % (A) 7 %; Neutrophils # (A) 4.1 k/uL (1.3-7.7); Neutrophils % (A) 67 %; Platelet Count 185 k/uL (150-450); RBC 5.91 m/uL (4.30-5.90); RDW 13.1 % (11.5-15.5); WBC 6.1 k/uL (3.8-10.6)
[2019-10-03 16:38] LABS: African American GFR (CKD) 84.1 (60.0-200.0); Albumin 4.6 g/dL (3.80-4.90); Albumin/Globulin Ratio 2.3 (1.60-3.17); Anion Gap 12.2 mmol/L (4.00-12.00); BUN/Creat Ratio 12.73 Ratio (12.00-20.00); Calcium 9.5 mg/dL (8.7-10.3); Carbon Dioxide 29.8 mmol/L (21.6-31.8); Chol/HDL Ratio 4.44; LDL Cholesterol,Calculated 92.8 mg/dL (0.0-131.0); Non-African American GFR(CKD) 72.6 (60.0-200.0); Potassium 4.3 mmol/L (3.5-5.5); Total Bilirubin 0.7 mg/dL (0.2-1.2); Total Protein 6.6 g/dL (6.2-8.2); VLDL Calculation 55.2 mg/dL (5.00-40.00)
== END | disposition home or self-care (01) ==
LOC: LABWHC1 10:05
PROVIDERS: ATTEND Internal Medicine Endocrinology, Diabetes & Metabolism
DX: E06.3 Autoimmune thyroiditis (principal); E78.00 Pure hypercholesterolemia, unspecified; E55.9 Vitamin D deficiency, unspecified
CPT/HCPCS: 36415; 80053; 80061; 82306; 84439; 84443; 85025

== ENCOUNTER → 2021-03-28 | Outpatient (CLI) | payer OTHER ==
[2021-03-28 15:28] LABS: Basophils # (A) 0.04 X 10*3/uL (0.00-0.10); Basophils % (A) 0.6 %; Eosinophils % (A) 1.4 %; HCT 52.8 % (39.6-50.0); HGB 16.2 g/dL (13.0-17.0); Lymphocytes # (A) 1.85 X 10*3/uL (0.90-5.00); Lymphocytes % (A) 26.4 %; MCH 26.9 pg (27.0-32.0); MCHC 30.7 g/dL (32.0-37.0); MCV 87.6 fL (80.0-97.0); Mean Platelet Volume 11.3 fL (9.5-12.2); Monocytes # (A) 0.66 X 10*3/uL (0.20-1.00); Monocytes % (A) 9.4 %; Neutrophils # (A) 4.35 X 10*3/uL (1.80-7.70); Neutrophils % (A) 61.9 %; Platelet Count 225 X 10*3/uL (140-440); RBC 6.03 X 10*6/uL (4.40-5.60); RDW 13.2 % (11.5-14.5); WBC 7.02 X 10*3/uL (4.50-10.00)
[2021-03-28 17:13] LABS: African American GFR (CKD) 82.9 (60.0-200.0); Albumin 4.6 g/dL (3.80-4.90); Albumin/Globulin Ratio 1.77 (1.60-3.17); Anion Gap 9.5 mmol/L (4.00-12.00); BUN/Creat Ratio 11.82 Ratio (12.00-20.00); Calcium 9.3 mg/dL (8.7-10.3); Carbon Dioxide 27.5 mmol/L (21.6-31.8); Chol/HDL Ratio 4.81; Globulin 2.6 g/dL (1.6-3.3); LDL Cholesterol,Calculated 57.4 mg/dL (0.0-131.0); Non-African American GFR(CKD) 71.6 (60.0-200.0); Potassium 4.4 mmol/L (3.5-5.5); Total Bilirubin 0.9 mg/dL (0.2-1.2); Total Protein 7.2 g/dL (6.2-8.2); VLDL Calculation 64.6 mg/dL (5.00-40.00)
[2021-03-28 17:20] LABS: T4, Free (Free Thyroxine) 1.3 ng/dL (0.80-1.80)
== END | disposition home or self-care (01) ==
LOC: LABWHC1 08:26
PROVIDERS: ATTEND Internal Medicine
DX: E06.3 Autoimmune thyroiditis (principal); E78.2 Mixed hyperlipidemia; E55.9 Vitamin D deficiency, unspecified
CPT/HCPCS: 36415; 80053; 80061; 82306; 84439; 84443; 85025

== ENCOUNTER → 2021-05-08 | Outpatient (CLI) | payer OTHER ==
--- NOTE | 2021-05-08 10:08 | CT ---
EXAMINATION TYPE: CT chest w con DATE OF EXAM: 05/08/2021 COMPARISON: 11/22/2018 HISTORY: 61-year-old male Shortness of breath and weakness TECHNIQUE: Contiguous axial scanning of the chest after the administration of 75 mL of Isovue 300. C oronal/sagittal reconstructions performed. CT DLP: 585.2mGycm. Automatic exposure control utilized for a dose reduction. FINDINGS: Heart normal size without pericardial effusion. Mildly ectatic ascending aorta 3.6 cm in upper descending thoracic aorta at 3.1 cm. Conventional arch vessel branching anatomy. No thoracic lymphadenopathy by CT size criteria. 4 mm right upper lung pulmonary nodule in the major fissure axial image 27 is unchanged from 2019 com patible with a benign etiology. 5 mm peripheral right basilar pulmonary nodule, axial image 47 is also unchanged. 4 mm posterior left basilar pulmonary nodule is unchanged. No consolidation or pleural effusion. Mild diffuse bronchial wall thickening. Visualized upper abdomen shows cholecystectomy clips and numerous hepatic hypodensities measuring up to 1.4 cm. These were also present in 2019 suggesting numerous benign cysts. Bones: Prominent anterior endplate spondylosis lower thoracic spine. IMPRESSION: 1. Mild diffuse bronchial wall thickening could reflect bronchitis or chronic asthma. 2. A few pulmonary nodules measuring up to 5 mm remain unchanged from 2019 and are benign.
== END | disposition home or self-care (01) ==
LOC: RADCTMAIN 07:52
PROVIDERS: ATTEND Internal Medicine
DX: R06.02 Shortness of breath (principal); R05 Cough; J45.909 Unspecified asthma, uncomplicated; R91.1 Solitary pulmonary nodule
CPT/HCPCS: 71260; Q9967

== ENCOUNTER → 2021-08-16 | Outpatient (CLI) | payer OTHER ==
[2021-08-16 16:29] LABS: ALT 21 U/L (10-49); AST 23 U/L (14-35); African American GFR (CKD) 94.8 (60.0-200.0); Albumin 4.6 g/dL (3.8-4.9); Albumin/Globulin Ratio 2.03 (1.60-3.17); Alkaline Phosphatase 41 U/L (41-126); BUN/Creat Ratio 12.89 Ratio (12.00-20.00); Blood Urea Nitrogen 12.7 mg/dL (9.0-27.0); Calcium 9.3 mg/dL (8.7-10.3); Carbon Dioxide 27.4 mmol/L (21.6-31.8); Chloride 99 mmol/L (96-109); Chol/HDL Ratio 2.93 Ratio; Globulin 2.3 g/dL (1.6-3.3); Glucose 100 mg/dL (70-110); LDL Cholesterol,Calculated 65.4 mg/dL (0.0-131.0); Non-African American GFR(CKD) 81.8 (60.0-200.0); Potassium 4.3 mmol/L (3.5-5.5); Sodium 139 mmol/L (135-145); Total Protein 6.9 g/dL (6.2-8.2)
== END | disposition home or self-care (01) ==
LOC: LABWHC1 09:03
PROVIDERS: ATTEND Internal Medicine
DX: E03.9 Hypothyroidism, unspecified (principal); E55.9 Vitamin D deficiency, unspecified; E78.00 Pure hypercholesterolemia, unspecified
CPT/HCPCS: 36415; 80053; 80061; 82306; 84439; 84443

== ENCOUNTER → 2022-06-25 | Outpatient (CLI) | payer OTHER ==
--- NOTE | 2022-06-25 12:57 | CT ---
EXAMINATION TYPE: CT facial bones wo con DATE OF EXAM: 06/25/2022 COMPARISON: None HISTORY: Lt nasal region mass CT DLP: 641.60 mGycm CONTRAST: 0 mL of Isovue 300 The paranasal sinuses are examined in the axial plane at 2 mm thick sections. Reconstructed images i n the coronal plane were obtained. There is dental amalgam scatter artifact The maxillary sinuses are clear. There is opacification of the mid right ethmoid air cell. Remaining ethmoid air cells are clear. Very minimal mucosal thickening is within the center sphenoid sinus pos teriorly. The frontal sinuses are clear. The septum is evaluated. There is septal deviation to the left. The ostiomeatal units are patent. Bilateral kinga bullosa are present. The views utilized to ingrid a masslike area on the left nasal. Discrete mass is not identified. Some s ubtle thickening of the nasal soft tissues may be present. IMPRESSIONS: 1. Minimal soft tissue thickening may be present at the level marked by the BB discrete mass however is not otherwise identified.
--- NOTE | 2022-06-25 13:06 | CT ---
EXAMINATION TYPE: CT soft tissue neck wo con DATE OF EXAM: 06/25/2022 COMPARISON: 05/15/2016 HISTORY: Lt neck mass CT DLP: 556.8 mGycm CONTRAST: Patient injected with 0 mL of Isovue 300. TECHNIQUE: Axial images at 3 mm thick sections. Reconstructed images in the coronal plane and sagitt al plane are reviewed. FINDINGS: Limited CT sections are obtained the lung apices. The lung apices appear clear. CT neck: The torus tubarius and fossa of Rosenmuller are normal. Behavioral Consultant spaces are normal. Parotid glands appear normal and symmetrical. Submandibular glands, are normal. Parapharyngeal spac es are normal. No suspicious adenopathy is evident. The hypopharynx appears within normal limits. Minimal mucosal thickening in the posterior sphenoid si nus and within a mid right ethmoid air cell. Paranasal sinuses otherwise appear clear. There is a BB marking a soft tissue thickening along the left nasal soft tissues. An additional BB is at the left submandibular gland level. Submandibular glands appear symmetrical. No underlying masses are evident at the level marked by the BB. Vocal cord level appear symmetrical. Thyroid as visualized is normal. There is some mild spondylosis within the cervical spine. IMPRESSIONS: 1. No suspicious abnormalities within the left neck.
== END | disposition home or self-care (01) ==
LOC: RADCTMAIN 09:38
PROVIDERS: ATTEND Otolaryngology
DX: R22.1 Localized swelling, mass and lump, neck (principal); R22.0 Localized swelling, mass and lump, head
CPT/HCPCS: 70486; 70490

== ENCOUNTER → 2023-12-04 | Outpatient (CLI) | payer OTHER ==
[2023-12-04 16:24] LABS: Blood Urea Nitrogen 12.8 mg/dL (9.0-27.0); Calcium 9.9 mg/dL (8.7-10.3); Carbon Dioxide 30.6 mmol/L (21.6-31.8); Chloride 100 mmol/L (96-109); Chol/HDL Ratio 2.98 Ratio; Glucose 110 mg/dL (70-110); LDL Cholesterol,Calculated 60.7 mg/dL (0.0-131.0); Potassium 4.6 mmol/L (3.5-5.5); Sodium 143 mmol/L (135-145); T4, Free (Free Thyroxine) 1.73 ng/dL (0.80-1.80)
== END | disposition home or self-care (01) ==
LOC: LABWHC1 09:41
PROVIDERS: ATTEND Internal Medicine
DX: E03.9 Hypothyroidism, unspecified (principal); E78.00 Pure hypercholesterolemia, unspecified; E55.9 Vitamin D deficiency, unspecified; R73.9 Hyperglycemia, unspecified
CPT/HCPCS: 36415; 80048; 80061; 82306; 83036; 84439; 84443

== ENCOUNTER 2024-01-03 16:23 | Emergency (ER) | payer OTHER ==
[2024-01-03 16:35] VITALS: RESP 18; TEMP 97.9
--- NOTE | 2024-01-03 16:36 | ED ---
General Adult HPI - General Chief complaint: Fall Stated complaint: Fall Time Seen by Provider: 01/03/24 16:26 Source: EMS Mode of arrival: EMS Limitations: no limitations - History of Present Illness Initial comments: Patient presents to the ED by ambulance for evaluation with his son at bedside. Patient states that he sustained a mechanical fall while taking down some decorations today. Patient states that he was standing on a chair about 3 feet off the ground when he lost his balance and fell backwards landing on his tailbone. Patient states that the back of his head also "bounced off the ground". Patient denies LOC. Patient is currently complaining of having a posterior "burning" headache, nausea, dizziness, posterior right shoulder pain and tailbone pain. Patient also admits to having mild neck pain. Patient was placed in a c-collar by EMS. Patient denies anticoagulant medication use. Patient denies alcohol or illicit drug use today. Patient denies any other injury or site of pain, focal numbness/weakness/neurodeficit, visual changes, speech difficulty, upper back pain, chest pain, dyspnea, palpitations, abdominal pain, vomiting, lower extremity pain, or any other symptoms or complaints. Patient was given Zofran by EMS, and he reports improvement in his nausea. - Related Data Home Medications Medication Instructions Recorded Confirmed Esomeprazole Magnesium [NexIUM] 40 mg PO DAILY 06/20/14 01/03/24 Furosemide [Lasix] 40 mg PO DAILY 06/20/14 01/03/24 Metoprolol Succinate (ER) [Toprol 50 mg PO BID 06/20/14 01/03/24 XL] Nortriptyline [Pamelor] 10 mg PO BID 06/20/14 01/03/24 Albuterol Inhaler [Ventolin Hfa 1 - 2 puff INHALATION RT-Q6H PRN 06/02/18 01/03/24 Inhaler] HYDROcodone/APAP 10-325MG [[place] 1 tab PO TID 06/02/18 01/03/24 10-325] Levothyroxine Sodium [Levoxyl] 200 mcg PO DAILY 06/02/18 01/03/24 Montelukast [Singulair] 10 mg PO HS 01/03/24 01/03/24 Naloxone HCl [Narcan] 4 mg NASAL DIRECTED PRN 01/03/24 01/03/24 Rosuvastatin Calcium 5 mg PO DAILY 01/03/24 01/03/24 amLODIPine [Norvasc] 2.5 mg PO DAILY 01/03/24 01/03/24 Allergies Allergy/AdvReac Type Severity Reaction Status Date / Time shellfish derived [Shellfish] Allergy Unknown Swelling Verified 01/03/24 17:41 caffeine Allergy Rapid Verified 01/03/24 17:41 Heart Rate clarithromycin [From Biaxin] Allergy Nausea & Verified 01/03/24 17:41 Vomiting hydromorphone HCl Allergy Vomiting, Verified 01/03/24 17:41 [From Dilaudid] Rash metoclopramide HCl Allergy Vomiting Verified 01/03/24 17:41 [From Reglan] blood Penicillins Allergy Rapid Verified 01/03/24 17:41 Heart Rate, Pass out Sulfa (Sulfonamide Allergy Rash/Hives, Verified 01/03/24 17:41 Antibiotics) NAUSEA sulfamethoxazole Allergy Nausea & Verified 01/03/24 17:41 [From Bactrim] Vomiting/Rash, Hives trimethoprim [From Bactrim] Allergy Nausea & Verified 01/03/24 17:41 Vomiting/Rash, Hives egg AdvReac Nausea & Verified 01/03/24 17:41 Vomiting Iodinated Contrast Media AdvReac Swelling Verified 01/03/24 17:41 [Iodinated Contrast Media - IV Dye] Review of Systems ROS Statement: Those systems with pertinent positive or pertinent negative responses have been documented in the HPI. ROS Other: All systems not noted in ROS Statement are negative. Past Medical History Past Medical History: Asthma, Chest Pain / Angina, Heart Failure, COPD, Diabetes Mellitus, GERD/Reflux, GI Bleed, Hyperlipidemia, Hypertension, Memory Impairment, Mitral Valve Prolapse (MVP), Sleep Apnea/CPAP/BIPAP, Thyroid Disorder Additional Past Medical History / Comment(s): MIGRAINES,ARRHYTHMIA-RAPID HEART BEAT, CARDIAC BRIDGE, COLITIS, DIVERTICULUTIS, NON ULCER DYSPEPSIA.,SHORT TERM MEMORY LOSS, CYSTS ON LIVER, DDD, BACK PAIN, USES CANE, HYPOGLYCEMIA ., UMBILICAL HERNIA. , PT STATES JUST GETTING OVER A "COLD" WITH A COUGH & SORE THROAT- TAKING CIPRO- PT TO NOTIFY DR CHEEMA IF COLD SYMPTOMS CONTINUE. History of Any Multi-Drug Resistant Organisms: MRSA Date of last positivie culture/infection: 2015 MDRO Source:: SINUS Past Surgical History: Breast Surgery, Cholecystectomy, Heart Catheterization, Hernia Repair, Orthopedic Surgery, Tonsillectomy Additional Past Surgical History / Comment(s): CHEST WALL-LUMP REMOVED, LEFT SHOULDER,LEFT LEG-LUMPECTOMY X 3, BILAT NECK-LUMPECTOMY, KNEE- ARTHROSCOPIC,COLONOSCOPY, EGD, LIVER BX., BREAST LUMPECTOMY. Past Anesthesia/Blood Transfusion Reactions: Motion Sickness, Postoperative Nausea & Vomiting (PONV) Additional Past Anesthesia/Blood Transfusion Reaction / Comment(s): PROBLEM WITH REGLAN GIVEN- VOMITED BLOOD Past Psychological History: Anxiety, Depression Past Alcohol Use History: None Reported Additional Past Alcohol Use History / Comment(s): quit 25 years ago, had smoked 15 years 2 ppd Past Drug Use History: None Reported - Past Family History Mother Family Medical History: Cancer Father Family Medical History: Cancer Brother(s) Family Medical History: Cancer General Exam Limitations: no limitations General appearance: alert, in no apparent distress Head exam: Present: other (Mild occipital scalp swelling and tenderness) Eye exam: Present: normal appearance, PERRL, EOMI ENT exam: Present: mucous membranes moist, TM's normal bilaterally Neck exam: Present: other (Trachea is in midline; c-collar is in place; mild diffuse posterior cervical tenderness; no cervical step-off deformity is appreciated) Respiratory exam: Present: normal lung sounds bilaterally. Absent: respiratory distress, wheezes, rales, rhonchi, stridor, chest wall tenderness Cardiovascular Exam: Present: regular rate, normal rhythm, normal heart sounds, other (Normal radial pulses bilaterally) GI/Abdominal exam: Present: soft. Absent: distended, tenderness, guarding Extremities exam: Present: full ROM, other (Pelvis is stable and nontender; patient has full range of motion of bilateral hips without difficulty; mild right posterior shoulder tenderness; patient has full range of motion at right shoulder). Absent: pedal edema Back exam: Present: normal inspection, other (Mild coccygeal tenderness). Absent: CVA tenderness (R), CVA tenderness (L) Neurological exam: Present: alert, oriented X3, CN II-XII intact. Absent: motor sensory deficit Psychiatric exam: Present: anxious Skin exam: Present: warm, dry, intact, normal color Course Vital Signs 01/03/24 01/03/24 16:24 19:45 Temperature 97.9 F Pulse Rate 83 74 Respiratory 18 18 Rate Blood Pressure 187/101 146/91 O2 Sat by Pulse 98 97 Oximetry - Reevaluation(s) Reevaluation #1: 01/03/24 19:54 Patient denies development of any new pain or symptoms while in the ED. Patient and son are aware of the patient's imaging reports, and patient feels comfortable being discharged home with his son at this time. He was counseled about head injuries, neck pain, shoulder pain and coccygeal contusions. He was clearly explained return and follow-up instructions, he was instructed to follow-up closely with his primary care provider. Patient feels comfortable with this plan. Medical Decision Making - Medical Decision Making Was pt. sent in by a medical professional or institution ([facility], [facility], urgent care, hospital, or correction...) When possible be specific @ -No Did you speak to anyone other than the patient for history (EMS, parent, family, police, friend...)? What history was obtained from this source @ -No Did you review nursing and triage notes (agree or disagree)? Why? @ -I reviewed and agree with nursing and triage notes Were old charts reviewed (outside hosp., previous admission, EMS record, old EKG, old radiological studies, urgent care reports/EKG's, correction records)? Report findings @ -No old charts were reviewed Differential Diagnosis (chest pain, altered mental status, abdominal pain women, abdominal pain men, vaginal bleeding, weakness, fever, dyspnea, syncope, headache, dizziness, GI bleed, back pain, seizure, CVA, palpatations, mental health, musculoskeletal)? @ -Fall, contusion, head injury, intracranial hemorrhage, fracture, concussion, cervical injury, sprain, strain, coccygeal contusion, coccygeal fracture, shoulder injury EKG interpreted by me (3pts min.). @ -None done X-rays interpreted by me (1pt min.). @ -Patient's right shoulder and coccyx/sacrum x-rays were reviewed myself. I do not see any evidence for acute osseous abnormality. I agree with the radiologist's interpretations as above. CT interpreted by me (1pt min.). @ -Noncontrast head/cervical spine CT was reviewed myself. I do not see any evidence of acute intracranial hemorrhage or cervical fracture. I agree with the radiologist's interpretations as above. U/S interpreted by me (1pt. min.). @ -None done What testing was considered but not performed or refused? (CT, X-rays, U/S, labs)? Why? @ -None What meds were considered but not given or refused? Why? @ -None Did you discuss the management of the patient with other professionals (professionals i.e. DrNaty, PA, [employer], lab, RT, psych nurse, social service liaison, splicer helper, teacher, bomb squad officer, immigration case worker)? Give summary @ -No Was smoking cessation discussed for >3mins.? @ -No Was critical care preformed (if so, how long)? @ -No Were there social determinants of health that impacted care today? How? (Homelessness, low income, unemployed, alcoholism, drug addiction, transportation, low edu. Level, literacy, decrease access to med. care, halfway, re hab)? @ -No Was there de-escalation of care discussed even if they declined (Discuss DNR or withdrawal of care, Hospice)? DNR status @ -No What co-morbidities impacted this encounter? (DM, HTN, Smoking, COPD, CAD, Cancer, CVA, ARF, Chemo, Hep., AIDS, mental health diagnosis, sleep apnea, morbid obesity)? @ -None Was patient admitted / discharged? Hospital course, mention meds given and route, prescriptions, significant lab abnormalities, going to OR and other pertinent info. @ -Patient reports sustaining a mechanical fall today. Patient denies development of any new pain or symptoms while in the ED. Patient's imaging studies are negative. I do not suspect an emergent medical condition or traumatic injury at this time. Strict return and follow-up instructions were provided. Will discharge patient home with his son at this time. Patient feels comfortable with this plan. Undiagnosed new problem with uncertain prognosis? @ -No Drug Therapy requiring intensive monitoring for toxicity (Heparin, Nitro, Insulin, Cardizem)? @ -No Were any procedures done? @ -No Diagnosis/symptom? @ -Fall with head injury and coccygeal contusion Acute, or Chronic, or Acute on Chronic? @ -Acute Uncomplicated (without systemic symptoms) or Complicated (systemic symptoms)? @ -Default Side effects of treatment? @ -No Exacerbation, Progression, or Severe Exacerbation? @ -No Poses a threat to life or bodily function? How? (Chest pain, USA, MD, pneumonia, PE, COPD, DKA, ARF, appy, cholecystitis, CVA, Diverticulitis, Homicidal, Suicidal, threat to staff... and all critical care pts) @ -No Diagnosis/symptom? @ -Right shoulder pain and neck pain Acute, or Chronic, or Acute on Chronic? @ -Acute Uncomplicated (without systemic symptoms) or Complicated (systemic symptoms)? @ -Default Side effects of treatment? @ -None Exacerbation, Progression, or Severe Exacerbation] @ -No Poses a threat to life or bodily function? @ -No - Radiology Data Noncontrast CT brain/cervical spine: 1. No acute intracranial CT abnormality. 2. No evidence of acute cervical spine fracture or traumatic malalignment. 3. Mild/moderate cervical spondylosis. Right shoulder x-rays: No acute osseous right shoulder abnormality. Sacrum/coccyx x-rays: No acute osseous abnormalities sacrum and coccyx. Disposition Clinical Impression: Fall, Head injury, Right shoulder pain, Coccyx contusion Disposition: HOME SELF-CARE Condition: Stable Instructions (If sedation given, give patient instructions): Cervical Strain (ED), Coccyx Injury (ED), Head Injury (ED), Fall Prevention (ED), Shoulder Pain (ED) Additional Instructions: Return to the ER immediately should you develop new or worsening pain or symptoms. Follow-up closely with your primary care provider. Is patient prescribed a controlled substance at d/c from ED?: No Referrals: Kim Bush [Primary Care Provider] - 1-2 days Time of Disposition: 19:58
--- NOTE | 2024-01-03 18:57 | CT ---
EXAMINATION TYPE: CT brain cspine wo con CT DLP: 1732.7 mGycm, Automated exposure control for dose reduction was used. DATE OF EXAM: 01/03/2024 5:44 PM COMPARISON: None. CLINICAL INDICATION:Male, 63 years old with history of fall; Fall. No LOC. TECHNIQUE: Brain: Multiple axial CT images of the brain were obtained without IV contrast. Cspine: Axial CT images from the skull base to the inferior aspect of T2 we obtained without intraven ous contrast. Coronal and sagittal reformatted images were also reviewed. FINDINGS: Brain: Extra-axial spaces: No abnormal extra-axial fluid collections. Ventricular system: Within normal limits for age. Cerebral parenchyma: No increased attenuation to suggest acute intraparenchymal hemorrhage. The gra y-white matter interface appears maintained. No significant atrophy. White matter unremarkable by C T. Cerebellum: No acute abnormality. Mass effect: No evidence of mass effect or midline shift. Intracranial vasculature: Unremarkable Soft tissues: Normal. Visualized orbits: Orbital contents appear grossly intact. Calvarium/osseous structures: No evidence of calvarial fracture. Paranasal sinuses and mastoid air cells: Clear. There is mild S-shaped nasal septal deviation. MRI is more sensitive for detecting acute processes such as infarct, and may be considered if clinica lly warranted. Cervical spine: Fracture: None seen. Osseous structures, spinal canal/neural foramina: Craniocervical junction appears intact. Mild/modera te degenerative change of the anterior C1-C2 articulation. Otherwise mild to moderate multilevel dege nerative disc changes throughout the cervical spine. This appears most significant on the right where disc osteophyte complex causes moderate neural foraminal stenosis C3-C4, C4-C5, C6-C7, and C7-T1. On the left, moderate neural foraminal stenoses C3-4, C6-7 and C7-T1. Mild spinal canal stenosis at mul tiple levels. Vertebral alignment: No traumatic malalignment. Straightening of the normal cervical lordosis, can be seen with degenerative changes, pain, positioning, muscular spasm. Neck soft tissues: No acute finding.. Other: Lung apices show no acute infiltrate or pneumothorax. Mild likely chronic interstitial changes . IMPRESSION: CT head: 1. No acute intracranial CT abnormality. CT cervical spine: 1. No evidence of acute cervical spine fracture or traumatic malalignment. 2. Mild/moderate cervical spondylosis.
--- NOTE | 2024-01-03 19:22 | XR ---
EXAMINATION TYPE: XR shoulder complete RT DATE OF EXAM: 01/03/2024 COMPARISON: NONE HISTORY: Pain TECHNIQUE: Right Shoulder examined in 3 projections. FINDINGS: The humeral head articulates with the glenoid. The acromio-clavicular junction is normal. No acute fractures or dislocations are evident. A follow up study can be performed 7-10 days from acute trauma for continued pain. MRI can be perfor med if soft tissue evaluation would be of benefit. IMPRESSION: 1. No acute osseous right shoulder abnormality.
--- NOTE | 2024-01-03 19:31 | XR ---
EXAMINATION TYPE: XR sacrum coccyx DATE OF EXAM: 01/03/2024 COMPARISON: None HISTORY: Pain in tailbone following from chair TECHNIQUE: 3 views sacrum and coccyx FINDINGS: Sacroiliac joints are normal. Sacrum is intact. No acute fractures or dislocations evident. Follow up exams can be performed 7-10 days from acute trauma for continued pain. IMPRESSION: 1. No acute osseous abnormalities sacrum and coccyx
[2024-01-03] MEDS: HYDROcodone/APAP 5-325MG 1 EACH TAB PO STA (19:48)
[2024-01-03 19:59] VITALS: BP 146/91; PULSE 74
== END 2024-01-03 20:13 | disposition home or self-care (01) ==
LOC: EC 16:23
DX: S30.0XXA Contusion of lower back and pelvis, initial encounter (principal); S09.90XA Unspecified injury of head, initial encounter; S49.91XA Unspecified injury of right shoulder and upper arm, initial encounter; M47.812 Spondylosis without myelopathy or radiculopathy, cervical region; Z88.0 Allergy status to penicillin; Z88.1 Allergy status to other antibiotic agents; Z88.2 Allergy status to sulfonamides; Z88.5 Allergy status to narcotic agent; Z88.8 Allergy status to other drugs, medicaments and biological substances; Z91.041 Radiographic dye allergy status; Z91.013 Allergy to seafood; Z91.018 Allergy to other foods; Z91.012 Allergy to eggs; W07.XXXA Fall from chair, initial encounter
CPT/HCPCS: 70450; 72125; 72220; 99284

== ENCOUNTER → 2024-08-10 | Outpatient (CLI) | payer MEDICARE, OTHER ==
--- NOTE | 2024-08-10 08:58 | MM ---
Reason for Exam: Clinical finding. Last mammogram was performed 11 year(s) and 5 month(s) ago. Indicated Problems: Palpable abnormality of the left side for 3 Month(s). Patient History: 2009, Excisional Biopsy on the Left side. Maternal aunt had breast cancer. Maternal grandmother had ovarian cancer, age 48. Mother had breast cancer under age 50. Prior Study Comparison: 10/09/2011 Bilateral Diagnostic Mammogram, [facility]. 03/22/2013 Bilateral Diagnostic Mammogram, [facility]. Tissue Density: The breasts are almost entirely fatty. Findings: Analyzed By CAD. Pattern is stable. There is a small rounded area in the subareolar left breast appears better defined on the current examination. Ultrasound is recommended for additional evaluation. Right breast:No suspicious groups of microcalcifications, spiculated or lobular masses, architectural distortion or other secondary signs of malignancy are mammographically apparent. Overall Assessment: Incomplete: need additional imaging evaluation, BI-RAD 0 Management: Diagnostic Breast Ultrasound of the left breast. A negative mammogram report should not preclude additional follow up of suspicious palpable abnormalities. Patient should continue monthly self breast exam. A clinical breast exam by your physician is recommended on an annual basis and results should be correlated with mammographic findings. Note on Sugar scores and lifetime risk: 1. A Sugar score greater than 3% is considered moderate risk. If this is the case, consider specialist referral to assess eligibility for a risk reducing agent. 2. If overall lifetime risk for the development of breast cancer is 20% or higher, the patient may qualify for future screening with alternating mammogram and breast MRI. [facility], , 08/10/2024 8:55 AM. Electronically signed and approved by: Jean Gusman D.O. Radiologis
--- NOTE | 2024-08-10 09:54 | USB ---
Reason for Exam: Clinical finding. Patient History: 2008, Excisional Biopsy on the Left side. Maternal aunt had breast cancer. Maternal grandmother had ovarian cancer, age 48. Mother had breast cancer under age 50. Technique: Method: Targeted. Prior Study Comparison: 10/09/2011 Bilateral Diagnostic Mammogram, [facility]. 03/22/2013 Bilateral Diagnostic Mammogram, [facility]. Findings: The retroareolar of the left breast was scanned. No solid or cystic masses are identified. There appears to be some gynecomastia developing in the subareolar left breast. Precautionary follow up is recommended. Overall Assessment: Probably benign, BI-RAD 3 Management: Diagnostic Mammogram of the left breast in 6 months. Diagnostic Breast Ultrasound of the left breast in 6 months. A clinical breast exam by your physician is recommended on an annual basis and results should be correlated with mammographic findings. This exam should not preclude additional follow-up of suspicious palpable abnormalities. Results were given to the patient verbally at the time of exam. [facility], , 08/10/2024 9:52 AM. Electronically signed and approved by: Jean Gusman D.O. Radiologis
== END | disposition home or self-care (01) ==
LOC: RADMAMWWP 07:07
PROVIDERS: ATTEND Surgery
DX: N63.0 Unspecified lump in unspecified breast (principal); Z80.3 Family history of malignant neoplasm of breast; R92.313 Mammographic fatty tissue density, bilateral breasts
CPT/HCPCS: 77062; 77066

== ENCOUNTER 2024-09-05 08:30 | Emergency (ER) | payer MEDICARE, OTHER ==
[2024-09-05 08:54] VITALS: RESP 16; TEMP 99.3
[2024-09-05] MEDS: KETOROLAC 15 MG/ML 1 ML VIAL IM STA (09:02)
[2024-09-05] MEDS: MORPHINE SULFATE 4 MG/ML SYRINGE IM STA (09:04)
--- NOTE | 2024-09-05 09:06 | ED ---
General Adult HPI - General Chief complaint: Abdominal Pain Stated complaint: Back Pain Time Seen by Provider: 09/05/24 08:35 Source: patient, RN notes reviewed, old records reviewed Mode of arrival: ambulatory Limitations: no limitations - History of Present Illness Initial comments: This is a 64-year-old male who presents to the emergency department complaining of back pain for 3 months. Patient states he is in his lower back and now it is in the mid back and wraps around the ribs to the front. Patient denies any recent injury. Patient states he has been to his primary doctor and neurologist and he has an MRI scheduled in the near future. Patient states he recently had x-rays but he does not have the results and he is worried that he might have bone cancer. The patient denies any numbness or weakness. Patient also complains of dysuria for the last month. Patient denies any fever chills. Patient has any abdominal pain. Patient denies any anterior chest pain or shortness of breath. - Related Data Home Medications Medication Instructions Recorded Confirmed Esomeprazole Magnesium [NexIUM] 40 mg PO DAILY 06/20/14 01/03/24 Furosemide [Lasix] 40 mg PO DAILY 06/20/14 01/03/24 Metoprolol Succinate (ER) [Toprol 50 mg PO BID 06/20/14 01/03/24 XL] Nortriptyline [Pamelor] 10 mg PO BID 06/20/14 01/03/24 Albuterol Inhaler [Ventolin Hfa 1 - 2 puff INHALATION RT-Q6H PRN 06/02/18 01/03/24 Inhaler] HYDROcodone/APAP 10-325MG [[place] 1 tab PO TID 06/02/18 01/03/24 10-325] Levothyroxine Sodium [Levoxyl] 200 mcg PO DAILY 06/02/18 01/03/24 Montelukast [Singulair] 10 mg PO HS 01/03/24 01/03/24 Naloxone HCl [Narcan] 4 mg NASAL DIRECTED PRN 01/03/24 01/03/24 Rosuvastatin Calcium 5 mg PO DAILY 01/03/24 01/03/24 amLODIPine [Norvasc] 2.5 mg PO DAILY 01/03/24 01/03/24 Previous Rx's Medication Instructions Recorded Ketorolac [Toradol] 10 mg PO Q8HR #15 tab 09/05/24 Allergies Allergy/AdvReac Type Severity Reaction Status Date / Time shellfish derived [Shellfish] Allergy Unknown Swelling Verified 09/05/24 08:35 caffeine Allergy Rapid Verified 09/05/24 08:35 Heart Rate clarithromycin [From Biaxin] Allergy Nausea & Verified 09/05/24 08:35 Vomiting hydromorphone HCl Allergy Vomiting, Verified 09/05/24 08:35 [From Dilaudid] Rash metoclopramide HCl Allergy Vomiting Verified 09/05/24 08:35 [From Reglan] blood Penicillins Allergy Rapid Verified 09/05/24 08:35 Heart Rate, Pass out Sulfa (Sulfonamide Allergy Rash/Hives, Verified 09/05/24 08:35 Antibiotics) NAUSEA sulfamethoxazole Allergy Nausea & Verified 09/05/24 08:35 [From Bactrim] Vomiting/Rash, Hives trimethoprim [From Bactrim] Allergy Nausea & Verified 09/05/24 08:35 Vomiting/Rash, Hives egg AdvReac Nausea & Verified 09/05/24 08:35 Vomiting Iodinated Contrast Media AdvReac Swelling Verified 09/05/24 08:35 [Iodinated Contrast Media - IV Dye] Review of Systems ROS Statement: Those systems with pertinent positive or pertinent negative responses have been documented in the HPI. ROS Other: All systems not noted in ROS Statement are negative. Past Medical History Past Medical History: Asthma, Chest Pain / Angina, Heart Failure, COPD, Diabetes Mellitus, GERD/Reflux, GI Bleed, Hyperlipidemia, Hypertension, Memory I mpairment, Mitral Valve Prolapse (MVP), Sleep Apnea/CPAP/BIPAP, Thyroid Disorder Additional Past Medical History / Comment(s): MIGRAINES,ARRHYTHMIA-RAPID HEART BEAT, CARDIAC BRIDGE, COLITIS, DIVERTICULUTIS, NON ULCER DYSPEPSIA.,SHORT TERM MEMORY LOSS, CYSTS ON LIVER, DDD, BACK PAIN, USES CANE, HYPOGLYCEMIA ., UMBILICAL HERNIA. , PT STATES JUST GETTING OVER A "COLD" WITH A COUGH & SORE THROAT- TAKING CIPRO- PT TO NOTIFY DR CHEEMA IF COLD SYMPTOMS CONTINUE. History of Any Multi-Drug Resistant Organisms: MRSA Date of last positivie culture/infection: 2015 MDRO Source:: SINUS Past Surgical History: Breast Surgery, Cholecystectomy, Heart Catheterization, Hernia Repair, Orthopedic Surgery, Tonsillectomy Additional Past Surgical History / Comment(s): CHEST WALL-LUMP REMOVED, LEFT SHOULDER,LEFT LEG-LUMPECTOMY X 3, BILAT NECK-LUMPECTOMY, KNEE-ARTH ROSCOPIC,COLONOSCOPY, EGD, LIVER BX., BREAST LUMPECTOMY. Past Anesthesia/Blood Transfusion Reactions: Motion Sickness, Postoperative Nausea & Vomiting (PONV) Additional Past Anesthesia/Blood Transfusion Reaction / Comment(s): PROBLEM WITH REGLAN GIVEN- VOMITED BLOOD Past Psychological History: Anxiety, Depression Smoking Status: Never smoker Past Alcohol Use History: None Reported Past Drug Use History: None Reported - Past Family History Mother Family Medical History: Cancer Father Family Medical History: Cancer Brother(s) Family Medical History: Cancer General Exam - General Exam Comments Initial Comments: GENERAL: Patient is well-developed and well-nourished. Patient is nontoxic and well- hydrated and is in mild distress. ENT: Neck is soft and supple. No significant lymphadenopathy is noted. Oropharynx is clear. Moist mucous membranes. Neck has full range of motion without eliciting any pain. EYES: The sclera were anicteric and conjunctiva were pink and moist. Extraocular movements were intact and pupils were equal round and reactive to light. Eyelids were unremarkable. PULMONARY: Unlabored respirations. Good breath sounds bilaterally. No audible rales rhonchi or wheezing was noted. CARDIOVASCULAR: There is a regular rate and rhythm without any murmurs gallops or rubs. ABDOMEN: Soft and nontender with normal bowel sounds. SKIN: Skin is clear with no lesions or rashes and otherwise unremarkable. NEUROLOGIC: Patient is alert and oriented x3. Cranial nerves II through XII are grossly intact. Motor and sensory are also intact. Patient has straight leg test positive at about 60 degrees bilaterally perineum has normal sensation MUSCULOSKELETAL: Normal extremities with adequate strength and full range of motion. Patient has some back pain on palpation in the lower back in the paraspinous muscles and in the lower thoracic region as well. LYMPHATICS: No significant lymphadenopathy is noted PSYCHIATRIC: Normal psychiatric evaluation. Limitations: no limitations Course Vital Signs 09/05/24 09/05/24 08:32 08:44 Temperature 99.3 F Pulse Rate 87 82 Respiratory 18 16 Rate Blood Pressure 147/90 145/100 O2 Sat by Pulse 99 98 Oximetry Medical Decision Making - Medical Decision Making Was pt. sent in by a medical professional or institution ([facility] Molina, [facility], urgent c are, hospital, or half-way...) When possible be specific @ -No Did you speak to anyone other than the patient for history (EMS, parent, family, police, friend...)? What history was obtained from this source @ -No Did you review nursing and triage notes (agree or disagree)? Why? @ -I reviewed and agree with nursing and triage notes Were old charts reviewed (outside hosp., previous admission, EMS record, old EKG, old radiological studies, urgent care reports/EKG's, half-way records)? Report findings @ -No old charts were reviewed Differential Diagnosis? @ -Differential Back Pain: Strain, zoster, cauda equina syndrome, epidural abscess, vertebral osteomyelitis, discitis, fracture, subluxation, disc herniation, DJD, spinal stenosis, dissection, AAA, pancreatitis, peptic ulcer disease, pyelonephritis, kidney stone, this is not meant to be an all-inclusive list. EKG interpreted by me (3pts min.). @ -As above X-rays interpreted by me (1pt min.). @ -X-ray of the thoracic and lumbar spine showed some degenerative disc disease with some arthritic changes. CT interpreted by me (1pt min.). @ -None done U/S interpreted by me (1pt. min.). @ -None done What testing was considered but not performed or refused? (CT, X-rays, U/S, labs)? Why? @ -None What meds were considered but not given or refused? Why? @ -None Did you discuss the management of the patient with other professionals (professionals i.e. [facility]IK[facility] Molina, [facility], lab, RT, psych nurse, social studies department chair, dean of women, teacher, banking officer, case coordinator)? Give summary @ -No Was smoking cessation discussed for >3mins.? @ -No Was critical care preformed (if so, how long)? @ -No Were there social determinants of health that impacted care today? How? (Homelessness, low income, unemployed, alcoholism, drug addiction, transportation, low edu. Level, literacy, decrease access to med. care, group home, rehab)? @ -No Was there de-escalation of care discussed even if they declined (Discuss DNR or withdrawal of care, Hospice)? DNR status @ -No What co-morbidities impacted this encounter? (DM, HTN, Smoking, COPD, CAD, Cancer, CVA, ARF, Chemo, Hep., AIDS, mental health diagnosis, sleep apnea, morbid obesity)? @ -None Was patient admitted / discharged? Hospital course, mention meds given and route, prescriptions, significant lab abnormalities, going to OR and other pertinent info. @ -Patient received morphine and Toradol for pain. Patient was feeling better and will follow-up with his neurologist or primary medical care doctor Undiagnosed new problem with uncertain prognosis? @ -No Drug Therapy requiring intensive monitoring for toxicity (Heparin, Nitro, Insulin, Cardizem)? @ -No Were any procedures done? @ -No Diagnosis/symptom? @ -Chronic back pain Acute, or Chronic, or Acute on Chronic? @ -Chronic Uncomplicated (without systemic symptoms) or Complicated (systemic symptoms)? @ -Uncomplicated Side effects of treatment? @ -No Exacerbation, Progression, or Severe Exacerbation? @ -No Poses a threat to life or bodily function? How? (Chest pain, [place], [place], pneumonia, PE, COPD, DKA, ARF, appy, cholecystitis, CVA, Diverticulitis, Homicidal, Suicidal, threat to staff... and all critical care pts) @ -No - Lab Data Lab Results 09/05/24 Range/Units 08:55 Urine Color Colorless Urine Appearance Clear (Clear) Urine pH 5.5 (5.0-8.0) Ur Specific [place] 1.007 (1.001-1.035) Urine Protein Negative (Negative) Urine Glucose (UA) Negative (Negative) Urine Ketones Negative (Negative) Urine Blood Negative (Negative) Urine Nitrite Negative (Negative) Urine Bilirubin Negative (Negative) Urine Urobilinogen <2.0 (<2.0) mg/dL Ur Leukocyte Esterase Negative (Negative) Disposition Clinical Impression: Chronic back pain, Degenerative disc disease Disposition: HOME SELF-CARE Condition: Good Instructions (If sedation given, give patient instructions): Back Pain (ED) Prescriptions: Ketorolac [Toradol] 10 mg PO Q8HR #15 tab Is patient prescribed a controlled substance at d/c from ED?: No Referrals: Sayra Deleon DO [Primary Care Provider] - 1-2 days Time of Disposition: 09:36
[2024-09-05 09:25] LABS: Appearance,Urine Clear (Clear); Bilirubin,Urine Negative (Negative); Blood,Urine Negative (Negative); Color,Urine Colorless; Glucose,Urine (UA) Negative (Negative); Ketones,Urine Negative (Negative); Leukocyte Esterase,Urine Negative (Negative); Nitrite,Urine Negative (Negative); PH, Urine 5.5 (5.0-8.0); Protein,Urine Negative (Negative); Specific Gravity,Urine 1.007 (1.001-1.035); Urobilinogen,Urine <2.0 mg/dL (<2.0)
--- NOTE | 2024-09-05 09:32 | XR ---
EXAMINATION TYPE: XR thoracic spine 3V, XR lumbar spine 3V DATE OF EXAM: 09/05/2024 COMPARISON: NONE CLINICAL INDICATION: Male, 64 years old with history of Back pain; FINDINGS: Thoracic spine: Some bridging anterior endplate spondylosis lower thoracic spine. Vertebral body heights are preserve d and alignment is maintained. Mild degenerative disc disease midthoracic spine. Additional moderate degenerative disc disease in the lower cervical spine. Trace grade 1 anterolisthesis probably C7-T1. Lumbar spine: Cholecystectomy clips. 5 lumbar type vertebral bodies. Mild multilevel degenerative disc disease. Fac et arthropathy lower lumbar spine. Vertebral body heights are preserved and alignment is maintained. IMPRESSION: 1. Thoracic spine: Some bridging anterior endplate spondylosis lower thoracic spine. Mild degenerativ e disc disease midthoracic spine. Additional spondylotic change lower cervical spine with a degenerat edgar grade 1 anterolisthesis probably at C7-T1. No vertebral compression collapse. 2. Lumbar spine: Mild multilevel degenerative disc disease. Facet arthropathy lower lumbar spine. No vertebral compression collapse or malalignment. [facility], , 09/05/2024 9:29 AM
[2024-09-05 09:56] VITALS: BP 136/83; PULSE 62
== END 2024-09-05 10:02 | disposition home or self-care (01) ==
LOC: EC 08:30
DX: M51.369 Other intervertebral disc degeneration, lumbar region without mention of lumbar back pain or lower extremity pain (principal); G89.29 Other chronic pain; M54.50 Low back pain, unspecified; Z88.5 Allergy status to narcotic agent; Z88.2 Allergy status to sulfonamides; Z88.1 Allergy status to other antibiotic agents; Z88.8 Allergy status to other drugs, medicaments and biological substances; Z88.0 Allergy status to penicillin; Z91.041 Radiographic dye allergy status; Z91.012 Allergy to eggs; Z91.013 Allergy to seafood
CPT/HCPCS: 81003; 72070; 72100; 99284; 96372 ×2; J2270; J1885

== ENCOUNTER 2024-09-30 05:12 | Inpatient (IN) | payer MEDICARE, OTHER ==
[2024-09-30 05:36] LABS: HCT 48.4 % (39.0-53.0); HGB 16.1 gm/dL (13.0-17.5); MCH 28.4 pg (25.0-35.0); MCHC 33.2 g/dL (31.0-37.0); MCV 85.5 fL (80.0-100.0); Platelet Count 246 k/uL (150-450); RBC 5.67 m/uL (4.30-5.90); RDW 13.7 % (11.5-15.5); WBC 30.6 k/uL (3.8-10.6)
--- NOTE | 2024-09-30 05:46 | ED ---
Abdominal Pain HPI - General Chief Complaint: Abdominal Pain Stated Complaint: CP Time Seen by Provider: 09/30/24 05:26 Source: patient Mode of arrival: ambulatory Limitations: no limitations - History of Present Illness Initial Comments: Patient is a 64-year-old man with a long history of back pain, who states that since mid-to-late August he has been having flareup of right sided thoracic and lumbar back pain as well as right flank pain. The patient states that Dr. Stearns, his pain management physician has been sending him for studies and he b rings reports from thoracic and lumbar studies that do not definitely isolate the cause of the pain. The patient states that it worsened over the course the last night. Patient states that as long as he remains still the pain is not bad but when he tries to move he gets flares of pain around the right flank. Patient denies change in urination or bowel movements. No fever or chills. MD Complaint: flank pain -: week(s) Location: R flank Radiation: none - Related Data Home Medications Medication Instructions Recorded Confirmed Esomeprazole Magnesium [NexIUM] 40 mg PO DAILY 06/20/14 10/14/24 Furosemide [Lasix] 40 mg PO DAILY 06/20/14 10/14/24 Metoprolol Succinate (ER) [Toprol 50 mg PO BID 06/20/14 10/14/24 XL] Nortriptyline [Pamelor] 20 mg PO HS 06/20/14 10/14/24 Albuterol Inhaler [Ventolin Hfa 2 puff INHALATION RT-Q6H PRN 06/02/18 10/14/24 Inhaler] HYDROcodone/APAP 10-325MG [[place] 1 tab PO TID 06/02/18 10/14/24 10-325] Levothyroxine Sodium [Levoxyl] 200 mcg PO MOTUWETHFRSA 06/02/18 10/14/24 Montelukast [Singulair] 10 mg PO HS 01/03/24 10/14/24 Rosuvastatin Calcium 5 mg PO DAILY 01/03/24 10/14/24 amLODIPine [Norvasc] 2.5 mg PO DAILY 01/03/24 10/14/24 Cyclobenzaprine [Flexeril] 10 mg PO TID 09/30/24 10/14/24 Tiotropium 2.5 Mcg/Puff [Spiriva 2 puff INHALATION RT-DAILY 09/30/24 10/14/24 Respimat 2.5 Mcg] Previous Rx's Medication Instructions Recorded Mag Hydrox/Al Hydrox/Simeth 15 ml PO Q6HR PRN ml 10/03/24 [Maalox] Allergies Allergy/AdvReac Type Severity Reaction Status Date / Time shellfish derived [Shellfish] Allergy Unknown Swelling Verified 10/14/24 14:31 caffeine Allergy Rapid Verified 10/14/24 14:31 Heart Rate clarithromycin [From Biaxin] Allergy Nausea & Verified 10/14/24 14:31 Vomiting hydromorphone HCl Allergy Vomiting, Verified 10/14/24 14:31 [From Dilaudid] Rash metoclopramide HCl Allergy Vomiting Verified 10/14/24 14:31 [From Reglan] blood Penicillins Allergy Anaphylaxis, Verified 10/14/24 14:31 Rapid Heart Rate, Pass out Sulfa (Sulfonamide Allergy Rash/Hives, Verified 10/14/24 14:31 Antibiotics) NAUSEA sulfamethoxazole Allergy Nausea & Verified 10/14/24 14:31 [From Bactrim] Vomiting/Rash, Hives trimethoprim [From Bactrim] Allergy Nausea & Verified 10/14/24 14:31 Vomiting/Rash, Hives egg AdvReac Nausea & Verified 10/14/24 14:31 Vomiting Iodinated Contrast Media AdvReac Swelling Verified 09/30/24 08:10 [Iodinated Contrast Media - IV Dye] Review of Systems ROS Statement: Those systems with pertinent positive or pertinent negative responses have been documented in the HPI. ROS Other: All systems not noted in ROS Statement are negative. Past Medical History Past Medical History: Asthma, Chest Pain / Angina, Heart Failure, COPD, Diabetes Mellitus, GERD/Reflux, GI Bleed, Hyperlipidemia, Hypertension, Memory Impairment, Mitral Valve Prolapse (MVP), Sleep Apnea/CPAP/BIPAP, Thyroid Disorder Additional Past Medical History / Comment(s): MIGRAINES,ARRHYTHMIA-RAPID HEART BEAT, CARDIAC BRIDGE, COLITIS, DIVERTICULUTIS, NON ULCER DYSPEPSIA.,SHORT TERM MEMORY LOSS, CYSTS ON LIVER, DDD, BACK PAIN, USES CANE, HYPOGLYCEMIA ., UMBILICAL HERNIA. , PT STATES JUST GETTING OVER A "COLD" WITH A COUGH & SORE THROAT- TAKING CIPRO- PT TO NOTIFY DR CHEEMA IF COLD SYMPTOMS CONTINUE. History of Any Multi-Drug Resistant Organisms: MRSA Date of last positivie culture/infection: 2015 MDRO Source:: SINUS Past Surgical History: Breast Surgery, Cholecystectomy, Heart Catheterization, Hernia Repair, Orthopedic Surgery, Tonsillectomy Additional Past Surgical History / Comment(s): CHEST WALL-LUMP REMOVED, LEFT SHOULDER,LEFT LEG-LUMPECTOMY X 3, BILAT NECK-LUMPECTOMY, KNEE- ARTHROSCOPIC,COLONOSCOPY, EGD, LIVER BX., BREAST LUMPECTOMY. Past Anesthesia/Blood Transfusion Reactions: Motion Sickness, Postoperative Nausea & Vomiting (PONV) Additional Past Anesthesia/Blood Transfusion Reaction / Comment(s): PROBLEM WITH REGLAN GIVEN- VOMITED BLOOD Past Psychological History: Anxiety, Depression Smoking Status: Never smoker Past Alcohol Use History: None Reported Past Drug Use History: None Reported - Past Family History Mother Family Medical History: Cancer Father Family Medical History: Cancer Brother(s) Family Medical History: Cancer General Exam Limitations: no limitations General appearance: alert, in no apparent distress Head exam: Present: atraumatic, normocephalic Eye exam: Present: normal appearance Neck exam: Present: normal inspection, full ROM. Absent: meningismus Respiratory exam: Present: normal lung sounds bilaterally, rales. Absent: respiratory distress, wheezes, rhonchi, stridor, chest wall tenderness, accessory muscle use Cardiovascular Exam: Present: regular rate, normal rhythm, normal heart sounds. Absent: systolic murmur, diastolic murmur, rubs, gallop GI/Abdominal exam: Present: soft. Absent: distended, tenderness, guarding, rebound, rigid, mass Extremities exam: Present: normal inspection, normal capillary refill. Absent: pedal edema, calf tenderness Back exam: Present: normal inspection, vertebral tenderness. Absent: CVA tenderness (R), CVA tenderness (L) Neurological exam: Present: alert. Absent: motor sensory deficit Skin exam: Present: warm, dry, intact, normal color. Absent: rash Course Vital Signs 09/30/24 09/30/24 09/30/24 05:14 05:32 06:18 Temperature 97.4 F L 98.4 F 97.7 F Pulse Rate 110 H 99 96 Pulse Rate [ Pulse Oximetery ] Respiratory 18 18 22 Rate Blood Pressure 161/90 160/97 136/80 Blood Pressure [Left Arm] O2 Sat by Pulse 99 98 98 Oximetry 09/30/24 09/30/24 09/30/24 08:33 14:14 15:57 Temperature 98 F Pulse Rate 90 69 Pulse Rate [ Pulse Oximetery ] Respiratory 22 18 Rate Blood Pressure 128/82 139/85 Blood Pressure [Left Arm] O2 Sat by Pulse 97 99 Oximetry 09/30/24 09/30/24 09/30/24 16:06 17:00 18:30 Temperature Pulse Rate 72 88 86 Pulse Rate [ Pulse Oximetery ] Respiratory 20 Rate Blood Pressure 130/74 Blood Pressure [Left Arm] O2 Sat by Pulse 96 Oximetry 09/30/24 09/30/24 09/30/24 18:39 19:41 21:08 Temperature 98.2 F Pulse Rate 92 83 Pulse Rate [ 80 Pulse Oximetery ] Respiratory 18 18 Rate Blood Pressure 140/88 Blood Pressure 143/87 [Left Arm] O2 Sat by Pulse 99 98 Oximetry 10/01/24 10/01/24 10/01/24 00:00 04:00 07:54 Temperature 98.5 F Pulse Rate 82 Pulse Rate [ 93 73 Pulse Oximetery ] Respiratory 16 20 Rate Blood Pressure Blood Pressure 123/67 124/59 [Left Arm] O2 Sat by Pulse 98 95 Oximetry 10/01/24 10/01/24 10/01/24 07:56 08:09 08:35 Temperature 97.7 F Pulse Rate 86 Pulse Rate [ 92 Pulse Oximetery ] Respiratory 18 Rate Blood Pressure Blood Pressure 135/83 [Left Arm] O2 Sat by Pulse 100 99 Oximetry 10/01/24 10/01/24 10/01/24 11:00 13:10 13:20 Temperature Pulse Rate 84 87 Pulse Rate [ 89 Pulse Oximetery ] Respiratory 17 Rate Blood Pressure Blood Pressure 130/79 [Left Arm] O2 Sat by Pulse 99 Oximetry Procedures - Sepsis Sepsis Focused Exam #1 Sepsis Focused Exam Complete: Yes Vital Signs & RN Notes Reviewed: Yes Capillary Refill: < 2 Seconds: Fingers Peripheral Pulses: Normal: Radial (R) Skin Color: Normal for Patient Respiratory Exam: normal lung sounds Cardiovascular Exam: tachycardia Medical Decision Making - Medical Decision Making The patient had CT scan of the abdomen and pelvis for workup of his back and flank pain. There is no evident free air or obstruction. No evident stone. No acute surgical condition. There is possible right lower infiltrate Was pt. sent in by a medical professional or institution (KIKI Molina, AUDIO VIDEO REPAIRER, urgent care, hospital, or long term...) When possible be specific @ -[No] Did you speak to anyone other than the patient for history (EMS, parent, family, police, friend...)? What history was obtained from this source @ -[No] Did you review nursing and triage notes (agree or disagree)? Why? @ -[I reviewed and agree with nursing and triage notes] Were old charts reviewed (outside hosp., previous admission, EMS record, old EKG, old radiological studies, urgent care reports/EKG's, long term records)? Report findings @ -[No old charts were reviewed] Differential Diagnosis (chest pain, altered mental status, abdominal pain women, abdominal pain men, vaginal bleeding, weakness, fever, dyspnea, syncope, headache, dizziness, GI bleed, back pain, seizure, CVA, palpatations, mental health, musculoskeletal)? @ -[Differential Back Pain: Strain, zoster, cauda equina syndrome, epidural abscess, vertebral osteomyelitis, discitis, fracture, subluxation, disc herniation, DJD, spinal stenosis, dissection, AAA, pancreatitis, peptic ulcer disease, pyelonephritis, kidney stone, this is not meant to be an all-inclusive list. Differential Abdominal Pain Men: Appendicitis, cholecystitis, diverticulosis, ischemic bowel, pancreatitis, hepatitis, UTI, gastroenteritis, AAA, incarcerated hernia, bowel obstruction, constipation, inflammatory bowel, hepatitis, peptic ulcer disease, splenic infarction, perforated viscus, testicular torsion, this is not meant to be an all-inclusive list EKG interpreted by me (3pts min.). @ -[I interpreted as above] X-rays interpreted by me (1pt min.). @ -[None done] CT interpreted by me (1pt min.). @ -[I interpreted as above U/S interpreted by me (1pt. min.). @ -[None done] What testing was considered but not performed or refused? (CT, X-rays, U/S, labs)? Why? @ -[None] What meds were considered but not given or refused? Why? @ -[None] Did you discuss the management of the patient with other professionals (professionals i.e. KIKI Molina, AUDIO VIDEO REPAIRER, lab, RT, psych nurse, social sciences department chair, electric motor rebuilder, teacher, morale officer, manager of case)? Give summary @ -[No] Was smoking cessation discussed for >3mins.? @ -[No] Was critical care preformed (if so, how long)? @ -[No] Were there social determinants of health that impacted care today? How? (Homelessness, low income, unemployed, alcoholism, drug addiction, transportation, low edu. Level, literacy, decrease access to med. care, residential, rehab)? @ -[No] Was there de-escalation of care discussed even if they declined (Discuss DNR or withdrawal of care, Hospice)? DNR status @ -[No] What co-morbidities impacted this encounter? (DM, HTN, Smoking, COPD, CAD, Cancer, CVA, ARF, Chemo, Hep., AIDS, mental health diagnosis, sleep apnea, morbid obesity)? @ -[None] Was patient admitted / discharged? Hospital course, mention meds given and route, prescriptions, significant lab abnormalities, going to OR and other pertinent info. @ -[Patient is 64-year-old man who is here with right back and flank pain. The patient's workup included CT scan as there was some tenderness of the right flank. The CT scan does appear to show right sided infiltrate and the patient will be admitted to have treatment for pneumonia. Surgical consultation will be obtained as the patient does have some abdominal tenderness. The patient is treated for sepsis time of sepsis is approximately 625 when notified of lab abnormality. Patient is admitted with IV fluid, antibiotic treatment Undiagnosed new problem with uncertain prognosis? @ -[No] Drug Therapy requiring intensive monitoring for toxicity (Heparin, Nitro, I nsulin, Cardizem)? @ -[No] Were any procedures done? @ -[No] Diagnosis/symptom? @ -[Acute flank pain Acute right lower lobe infiltrate Acute leukocytosis Sepsis Lactic acidosis Acute, or Chronic, or Acute on Chronic? @ -[Acute Uncomplicated (without systemic symptoms) or Complicated (systemic symptoms)? @ -Uncomplicated Side effects of treatment? @ -[No] Exacerbation, Progression, or Severe Exacerbation? @ -[No] Poses a threat to life or bodily function? How? (Chest pain, USA, CA, pneumonia, PE, COPD, DKA, ARF, appy, cholecystitis, CVA, Diverticulitis, Homicidal, Suicidal, threat to staff... and all critical care pts) @ -[Yes All treatments are based on ideal body weight as in ED triage - Lab Data Result diagrams: 10/03/24 03:11 10/03/24 03:11 Lab Results 09/30/24 09/30/24 09/30/24 Range/Units 05:20 05:20 05:20 WBC 30.6 H (3.8-10.6) k/uL RBC 5.67 (4.30-5.90) m/uL Hgb 16.1 (13.0-17.5) gm/dL Hct 48.4 (39.0-53.0) % MCV 85.5 (80.0-100.0) fL MCH 28.4 (25.0-35.0) pg MCHC 33.2 (31.0-37.0) g/dL RDW 13.7 (11.5-15.5) % Plt Count 246 (150-450) k/uL MPV 8.0 Neutrophils % (Manual) 76 % Band Neuts % (Manual) 14 % Lymphocytes % (Manual) 8 % Monocytes % (Manual) 2 % Metamyelocytes % 1 % Neutrophils # (Manual) 27.50 H (1.3-7.7) k/uL Lymphocytes # (Manual) 2.45 (1.0-4.8) k/uL Monocytes # (Manual) 0.61 (0-1.0) k/uL Metamyelocytes # (Man) 0.31 H (0) k/uL Nucleated RBCs 0 (0-0) /100 WBC Manual Slide Review Performed RBC Morphology Normal PT 11.2 (10.0-12.5) sec INR 1.0 (<1.2) APTT 23.5 (22.0-30.0) sec Sodium 138 (137-145) mmol/L Potassium 4.4 (3.5-5.1) mmol/L Chloride 101 (98-107) mmol/L Carbon Dioxide 25 (22-30) mmol/L Anion Gap 12 mmol/L BUN 19 (9-20) mg/dL Creatinine 0.89 (0.66-1.25) mg/dL Est GFR (CKD-EPI)AfAm >90 (>60 ml/min/1.73 sqM) Est GFR (CKD-EPI)NonAf >90 (>60 ml/min/1.73 sqM) Glucose 151 H (74-99) mg/dL Plasma Lactic Acid Cuauhtemoc (0.7-2.0) mmol/L Calcium 10.1 (8.4-10.2) mg/dL Magnesium 1.6 (1.6-2.3) mg/dL Total Bilirubin 0.6 (0.2-1.3) mg/dL AST 25 (17-59) U/L ALT 28 (4-49) U/L Alkaline Phosphatase 50 (38-126) U/L Troponin I (0.000-0.034) ng/mL Total Protein 7.5 (6.3-8.2) g/dL Albumin 4.8 (3.5-5.0) g/dL Amylase 52 (30-110) U/L Lipase 70 (23-300) U/L 09/30/24 09/30/24 Range/Units 05:20 05:20 WBC (3.8-10.6) k/uL RBC (4.30-5.90) m/uL Hgb (13.0-17.5) gm/dL Hct (39.0-53.0) % MCV (80.0-100.0) fL MCH (25.0-35.0) pg MCHC (31.0-37.0) g/dL RDW (11.5-15.5) % Plt Count (150-450) k/uL MPV Neutrophils % (Manual) % Band Neuts % (Manual) % Lymphocytes % (Manual) % Monocytes % (Manual) % Metamyelocytes % % Neutrophils # (Manual) (1.3-7.7) k/uL Lymphocytes # (Manual) (1.0-4.8) k/uL Monocytes # (Manual) (0-1.0) k/uL Metamyelocytes # (Man) (0) k/uL Nucleated RBCs (0-0) /100 WBC Manual Slide Review RBC Morphology PT (10.0-12.5) sec INR (<1.2) APTT (22.0-30.0) sec Sodium (137-145) mmol/L Potassium (3.5-5.1) mmol/L Chloride (98-107) mmol/L Carbon Dioxide (22-30) mmol/L Anion Gap mmol/L BUN (9-20) mg/dL Creatinine (0.66-1.25) mg/dL Est GFR (CKD-EPI)AfAm (>60 ml/min/1.73 sqM) Est GFR (CKD-EPI)NonAf (>60 ml/min/1.73 sqM) Glucose (74-99) mg/dL Plasma Lactic Acid Cu[place]emoc 4.3 H* (0.7-2.0) mmol/L Calcium (8.4-10.2) mg/dL Magnesium (1.6-2.3) mg/dL Total Bilirubin (0.2-1.3) mg/dL AST (17-59) U/L ALT (4-49) U/L Alkaline Phosphatase (38-126) U/L Troponin I 0.012 (0.000-0.034) ng/mL Total Protein (6.3-8.2) g/dL Albumin (3.5-5.0) g/dL Amylase (30-110) U/L Lipase (23-300) U/L - EKG Data -: EKG Interpreted by [facility] EKG shows normal: sinus rhythm, axis (Normal), intervals (Normal), QRS complexes (Normal), ST-T waves (Normal) Rate: tachycardia (Rate 102 bpm) Disposition Clinical Impression: Pneumonia, Leukocytosis, Abdominal pain Disposition: ADMITTED IP TO THIS HOSP Condition: Fair Is patient prescribed a controlled substance at d/c from ED?: No
[2024-09-30 05:53] LABS: Partial Thromboplastin Time 23.5 sec (22.0-30.0); Prothrombin Time 11.2 sec (10.0-12.5)
[2024-09-30 05:57] LABS: AST 25 U/L (17-59); African American GFR (CKD) >90 (>60 ml/min/1.73 sqM); Albumin 4.8 g/dL (3.5-5.0); Alkaline Phosphatase 50 U/L (38-126); Amylase 52 U/L (30-110); Anion Gap 12 mmol/L; Blood Urea Nitrogen 19 mg/dL (9-20); Calcium 10.1 mg/dL (8.4-10.2); Carbon Dioxide 25 mmol/L (22-30); Chloride 101 mmol/L (98-107); Glucose 151 mg/dL (74-99); Lipase 70 U/L (23-300); Magnesium 1.6 mg/dL (1.6-2.3); Non-African American GFR(CKD) >90 (>60 ml/min/1.73 sqM); Potassium 4.4 mmol/L (3.5-5.1); Sodium 138 mmol/L (137-145); Total Bilirubin 0.6 mg/dL (0.2-1.3); Total Protein 7.5 g/dL (6.3-8.2)
[2024-09-30 06:18] LABS: ALT 28 U/L (4-49)
[2024-09-30] MEDS ORDERED: NALOXONE 0.4 MG/ML 1 ML VIAL IV PRN (06:20)
[2024-09-30] MEDS ORDERED: MAG HYDROX/AL HYDROX/SIMETH 30 ML CUP PO PRN (06:20)
[2024-09-30] MEDS: MORPHINE SULFATE 4 MG/ML SYRINGE IV STA ×2 (06:27→09:35)
[2024-09-30] MEDS: SODIUM CHLORIDE 0.9% 1,000 ML IV SCH (06:36)
[2024-09-30 06:45] LABS: Band Neutrophils % 14 %; Lymphocytes # (M) 2.45 k/uL (1.0-4.8); Metamyelocytes # (M) 0.31 k/uL (0); Metamyelocytes % 1 %; Monocytes # (M) 0.61 k/uL (0-1.0); Neutrophils % (M) 76 %; Nucleated Red Blood Cells 0 /100 WBC (0-0); Total Cells Counted 200
[2024-09-30 06:46] LABS: RBC Morphology Normal
--- NOTE | 2024-09-30 07:49 | CT ---
EXAMINATION TYPE: CT abdomen pelvis wo con DATE OF EXAM: 09/30/2024 6:21 AM COMPARISON: 11/22/2018 CLINICAL INDICATION: Male, 64 years old with history of R flank pain, LRQ PAIN HX OF BLADDER CA AND U ROSTOMY., TECHNIQUE: Contiguous axial scanning of the abdomen and pelvis without IV contrast. Coronal and sagit giovanna reconstructions performed. CT DLP: 441.9 mGycm. Automated exposure control for dose reduction was used. FINDINGS: Heart upper limits of normal in size without pericardial effusion. There is a focal patchy opacity po steromedial right lower lobe. 5 mm lateral right basilar pulmonary nodule is unchanged suggesting a b enign etiology. No pleural effusion. Numerous hepatic hypodensities are redemonstrated measuring up to 1.4 cm suggesting benign cysts. Gal lbladder surgically absent. Adrenal glands, spleen, and pancreas show no gross abnormality by noncontrast CT. Kidneys show no nephrolithiasis or hydronephrosis. Some stable irregular nodular thickening at the umbilicus suggesting scarring from previous hernia re pair. No dilated small bowel, free fluid, or free air. No mesenteric or retroperitoneal lymphadenopathy. Normal appendix. Mild stool burden. Mild possible sigmoid diverticulosis. No pericolonic inflammatory change. Bladder is urine distended. Prostate gland upper limits of normal at 4.0 cm. No abnormal fluid collec tion in the pelvis or pelvic lymphadenopathy. Bones: Moderate degenerative change at the left hip and mild of the right hip. Moderate degenerative disc disease L5-S1. Hypertrophic facet arthropathy mid to lower lumbar spine. IMPRESSION: 1. No nephrolithiasis or hydronephrosis. 2. Focal patchy opacity posteromedial right lower lobe. Correlate to exclude pneumonia. 3. Minimal proximal sigmoid diverticulosis without acute diverticulitis. [facility], , 09/30/2024 7:46 AM
--- NOTE | 2024-09-30 07:50 | XR ---
EXAMINATION TYPE: XR chest 2V DATE OF EXAM: 09/30/2024 6:01 AM COMPARISON: 11/22/[address] same day CLINICAL INDICATION: Male, 64 years old with history of Chest Pain, , TECHNIQUE: AP and lateral views FINDINGS: Heart limits of normal in size. Hazy lung densities relating to overlying soft tissue and portable te chnique. There is some focal right perihilar opacity. No pleural effusion. IMPRESSION: Portable exam further limited by body habitus. The focal opacity posteromedial right lower lobe is no t as well demonstrated radiographically. Correlate for pneumonia. There is some patchy right perihila r opacity that could represent additional infiltrate. [facility], , 09/30/2024 7:48 AM
[2024-09-30] MEDS ORDERED: PNEUMONIA PROTOCOL UTILIZED 1 EACH MISC PO PRN (08:46)
[2024-09-30] MEDS: AZITHROMYCIN 500 MG TAB PO SCH (09:37)
--- NOTE | 2024-09-30 12:31 | P.GSCN ---
History of Present Illness Consult date: 09/30/24 History of present illness: CHIEF COMPLAINT: Abdominal pain HISTORY OF PRESENT ILLNESS: This is a 64-year-old male with known chronic back pain. Patient presents to the hospital with complaints of right-sided back pain that radiates into the right flank pain and down into the right groin. Patient denies any urinary symptoms. He does have a white count of 30. He reports having diarrhea. He reports having some occasional blood in the stools with a known history of hemorrhoids. Due to the change of bowel habits and intermittent bleeding he is scheduled for outpatient colonoscopy October 19 with GI service. Patient had a CT scan of the abdomen which had reported diverticulosis no evidence of kidney stones and a possible right lower lobe pneumonia. Patient does report having a cough. Afebrile. The patient does report having sweats and chills at home and some nausea. He had been on Wegov[place] June to August but discontinued that due to abdominal pain. Patient's past abdominal surgical history does include a cholecystectomy and incisional hernia repair. Patient does report his overall pain does feel different than his usual chronic back pain PAST MEDICAL HISTORY: See below PAST SURGICAL HISTORY: See below MEDICATIONS: See below ALLERGIES: See below SOCIAL HISTORY: No illicit drug use. REVIEW OF SYSTEMS: CONSTITUTIONAL: Denies fever or chills. HEENT: Denies blurred vision, vision changes, or eye pain. Denies hemoptysis CARDIOVASCULAR: Denies chest pain or pressure. RESPIRATORY: No shortness of breath. GASTROINTESTINAL: See HPI for pertinent findings HEMATOLOGIC: Denies bleeding disorders. GENITOURINARY: Denies any blood in urine or increased urinary frequency. SKIN: Denies pruitis. Denies rash. PHYSICAL EXAM: VITAL SIGNS: Reviewed GENERAL: Well-developed in no acute distress. HEENT: No sclera icterus. Extraocular movements grossly intact. Moist buccal mucosa. Head is atraumatic, normocephalic. No nasal drainage. ABDOMEN: Soft. Obese. Nondistended. Patient with tenderness in the right back and right flank and right lower quadrant with palpation NEUROLOGIC: Alert and oriented. Cranial nerves II through XII grossly intact. LABORATORY DATA: WBC 30.6 Hgb 16.1 platelets 246 Sodium 138 potassium 4.4 creatinine 0.89 Lactic acid 4.3-3.0 IMAGING: CT scan abdomen pelvis reports no nephrolithiasis or hydronephrosis. Focal patchy opacity posterior medial right lower lobe. Correlate to exclude ammonia. Minimal proximal sigmoid diverticulosis without acute diverticulitis. Normal appendix Chest x-ray focal opacity right lower lobe not as well demonstrated on x-ray correlate for pneumonia. ASSESSMENT: 1. Right flank pain that radiates down into the right groin. Concerns for possible pyelonephritis 2. Chronic back pain 3. Possible pneumonia 4. Leukocytosis PLAN: -Agree with antibiotics -Check urinalysis to evaluate for pyelonephritis -Okay for consistent carbohydrate diet -No surgical intervention planned Physician In Flight Crew Member note has been reviewed by physician. Signing provider agrees with the documented findings, assessment, and plan of care. I have personally seen and examined the patient, reviewed the INSURANCE PROFESSIONAL /PAs history, exam and MDM and agree with the assessment and plan as written. Based on total visit time, I have performed more than 50% of the visit. As above: Patient with right flank pain. Feels better when sitting upright. Agree with plans for urine culture. Continue antibiotics for suspected pyelonephritis. Appendix appears normal on CAT scan. No bowel related issues to explain the patient's presentation. Past Medical History Past Medical History: Asthma, Chest Pain / Angina, Heart Failure, COPD, Diabetes Mellitus, GERD/Reflux, GI Bleed, Hyperlipidemia, Hypertension, Memory Impairment, Mitral Valve Prolapse (MVP), Sleep Apnea/CPAP/BIPAP, Thyroid Disorder Additional Past Medical History / Comment(s): MIGRAINES,ARRHYTHMIA-RAPID HEART BEAT, CARDIAC BRIDGE, COLITIS, DIVERTICULUTIS, NON ULCER DYSPEPSIA.,SHORT TERM MEMORY LOSS, CYSTS ON LIVER, DDD, BACK PAIN, USES CANE, HYPOGLYCEMIA ., UMBILICAL HERNIA. , PT STATES JUST GETTING OVER A "COLD" WITH A COUGH & SORE THROAT- TAKING CIPRO- PT TO NOTIFY DR CHEEMA IF COLD SYMPTOMS CONTINUE. History of Any Multi-Drug Resistant Organisms: MRSA Year Discovered:: 2016 MDRO Source:: SINUS Past Surgical History: Breast Surgery, Cholecystectomy, Heart Catheterization, Hernia Repair, Orthopedic Surgery, Tonsillectomy Additional Past Surgical History / Comment(s): CHEST WALL-LUMP REMOVED, LEFT SHOULDER,LEFT LEG-LUMPECTOMY X 3, BILAT NECK-LUMPECTOMY, KNEE- ARTHROSCOPIC,COLONOSCOPY, EGD, LIVER BX., BREAST LUMPECTOMY. Past Anesthesia/Blood Transfusion Reactions: Motion Sickness, Postoperative Nausea & Vomiting (PONV) Additional Past Anesthesia/Blood Transfusion Reaction / Comm: PROBLEM WITH REGLAN GIVEN- VOMITED BLOOD Past Psychological History: Anxiety, Depression Smoking Status: Never smoker Past Alcohol Use History: None Reported Past Drug Use History: None Reported - Past Family History Mother Family Medical History: Cancer Father Family Medical History: Cancer Brother(s) Family Medical History: Cancer Medications and Allergies Home Medications Medication Instructions Recorded Confirmed Type Esomeprazole Magnesium [NexIUM] 40 mg PO DAILY 06/20/14 09/30/24 History Furosemide [Lasix] 40 mg PO DAILY 06/20/14 09/30/24 History Metoprolol Succinate (ER) [Toprol 50 mg PO BID 06/20/14 09/30/24 History XL] Nortriptyline [Pamelor] 20 mg PO HS 06/20/14 09/30/24 History Albuterol Inhaler [Ventolin Hfa 2 puff INHALATION RT-Q6H PRN 06/02/18 09/30/24 History Inhaler] HYDROcodone/APAP 10-325MG [[place] 1 tab PO TID 06/02/18 09/30/24 History 10-325] Levothyroxine Sodium [Levoxyl] 200 mcg PO MOTUWETHFRSA 06/02/18 09/30/24 History Montelukast [Singulair] 10 mg PO HS 01/03/24 09/30/24 History Rosuvastatin Calcium 5 mg PO DAILY 01/03/24 09/30/24 History amLODIPine [Norvasc] 2.5 mg PO DAILY 01/03/24 09/30/24 History Cyclobenzaprine [Flexeril] 10 mg PO TID 09/30/24 09/30/24 History Tiotropium 2.5 Mcg/Puff [Spiriva 2 puff INHALATION RT-DAILY 09/30/24 09/30/24 History Respimat 2.5 Mcg] Allergies Allergy/AdvReac Type Severity Reaction Status Date / Time shellfish derived [Shellfish] Allergy Unknown Swelling Verified 09/30/24 08:10 caffeine Allergy Rapid Verified 09/30/24 08:10 Heart Rate clarithromycin [From Biaxin] Allergy Nausea & Verified 09/30/24 08:10 Vomiting hydromorphone HCl Allergy Vomiting, Verified 09/30/24 08:10 [From Dilaudid] Rash metoclopramide HCl Allergy Vomiting Verified 09/30/24 08:10 [From Reglan] blood Penicillins Allergy Anaphylaxis, Verified 09/30/24 08:10 Rapid Heart Rate, Pass out Sulfa (Sulfonamide Allergy Rash/Hives, Verified 09/30/24 08:10 Antibiotics) NAUSEA sulfamethoxazole Allergy Nausea & Verified 09/30/24 08:10 [From Bactrim] Vomiting/Rash, Hives trimethoprim [From Bactrim] Allergy Nausea & Verified 09/30/24 08:10 Vomiting/Rash, Hives egg AdvReac Nausea & Verified 09/30/24 08:10 Vomiting Iodinated Contrast Media AdvReac Swelling Verified 09/30/24 08:10 [Iodinated Contrast Media - IV Dye] Surgical - Exam Vital Signs Temp Pulse Resp BP Pulse Ox 97.4 F L 110 H 18 161/90 99 09/30/24 05:14 09/30/24 05:14 09/30/24 05:14 09/30/24 05:14 09/30/24 05:14 Results - Labs 09/30/24 05:20 09/30/24 05:20 Abnormal Lab Results - Last 24 Hours (Table) 09/30/24 09/30/24 09/30/24 Range/Units 05:20 05:20 05:20 WBC 30.6 H (3.8-10.6) k/uL Neutrophils # (Manual) 27.50 H (1.3-7.7) k/uL Metamyelocytes # (Man) 0.31 H (0) k/uL Glucose 151 H (74-99) mg/dL Plasma Lactic Acid Cuauhtemoc 4.3 H* (0.7-2.0) mmol/L Diabetes panel 09/30/24 Range/Units 05:20 Sodium 138 (137-145) mmol/L Potassium 4.4 (3.5-5.1) mmol/L Chloride 101 (98-107) mmol/L Carbon Dioxide 25 (22-30) mmol/L BUN 19 (9-20) mg/dL Creatinine 0.89 (0.66-1.25) mg/dL Glucose 151 H (74-99) mg/dL Calcium 10.1 (8.4-10.2) mg/dL AST 25 (17-59) U/L ALT 28 (4-49) U/L Alkaline Phosphatase 50 (38-126) U/L Total Protein 7.5 (6.3-8.2) g/dL Albumin 4.8 (3.5-5.0) g/dL Calcium panel 09/30/24 Range/Units 05:20 Calcium 10.1 (8.4-10.2) mg/dL Albumin 4.8 (3.5-5.0) g/dL Pituitary panel 09/30/24 Range/Units 05:20 Sodium 138 (137-145) mmol/L Potassium 4.4 (3.5-5.1) mmol/L Chloride 101 (98-107) mmol/L Carbon Dioxide 25 (22-30) mmol/L BUN 19 (9-20) mg/dL Creatinine 0.89 (0.66-1.25) mg/dL Glucose 151 H (74-99) mg/dL Calcium 10.1 (8.4-10.2) mg/dL Adrenal panel 09/30/24 Range/Units 05:20 Sodium 138 (137-145) mmol/L Potassium 4.4 (3.5-5.1) mmol/L Chloride 101 (98-107) mmol/L Carbon Dioxide 25 (22-30) mmol/L BUN 19 (9-20) mg/dL Creatinine 0.89 (0.66-1.25) mg/dL Glucose 151 H (74-99) mg/dL Calcium 10.1 (8.4-10.2) mg/dL Total Bilirubin 0.6 (0.2-1.3) mg/dL AST 25 (17-59) U/L ALT 28 (4-49) U/L Alkaline Phosphatase 50 (38-126) U/L Total Protein 7.5 (6.3-8.2) g/dL Albumin 4.8 (3.5-5.0) g/dL
[2024-09-30] MEDS ORDERED: HYDROcodone/APAP 5-325MG 1 EACH TAB PO PRN (13:23)
[2024-09-30] MEDS ORDERED: IPRATROPIUM-ALBUTEROL 3 ML NEB INHALATION PRN (13:55)
[2024-09-30] MEDS: HYDROmorphone 1 MG/ML 1 ML SYRINGE IVP PRN (14:08)
[2024-09-30] MEDS: HYDROcodone/APAP 10-325MG 1 EACH TAB PO SCH (15:45)
[2024-09-30] MEDS: CYCLOBENZAPRINE 10 MG TAB PO SCH (15:46)
[2024-09-30] MEDS: IPRATROPIUM-ALBUTEROL 3 ML NEB INHALATION SCH (15:54)
[2024-09-30] MEDS: MORPHINE SULFATE 4 MG/ML SYRINGE IV PRN (20:01)
[2024-09-30 20:35] LABS: Appearance,Urine Clear (Clear); Bilirubin,Urine Negative (Negative); Blood,Urine Negative (Negative); Color,Urine Yellow; Glucose,Urine (UA) Negative (Negative); Ketones,Urine Trace (Negative); Leukocyte Esterase,Urine Negative (Negative); Nitrite,Urine Negative (Negative); Protein,Urine Trace (Negative); Specific Gravity,Urine 1.031 (1.001-1.035); Urobilinogen,Urine <2.0 mg/dL (<2.0)
[2024-09-30] MEDS: NORTRIPTYLINE 10 MG CAP PO SCH (21:10)
[2024-09-30] MEDS: MONTELUKAST 10 MG TAB PO SCH (21:10)
[2024-09-30] MEDS: METOPROLOL SUCCINATE (ER) 50 MG TAB.ER.24H PO SCH (21:10)
--- NOTE | 2024-09-30 22:44 | P.CONS ---
History of Present Illness - Reason for Consult Consult date: 09/30/24 Leukocytosis, pneumonia Requesting physician: Lyubov Peres - Chief Complaint Back and right flank pain x few days - History of Present Illness Patient is 64-year-old male with a past medical history significant for diabetes mellitus COPD hypertension hyperlipidemia sleep apnea presenting to the hospital for evaluation of pain to the right flank area as well as right thoracic and lumbar area patient was describing the pain to be sharp in intensity almost 10 out of 10 last time that brought him to the hospital the patient denies high-grade fever or any chills no headache or URI symptoms no chest pain shortness of breath he did have a cough moderate in intensity and bringing up some greenish sputum patient on presentation to the hospital was afebrile patient was not tachycardic or hypotensive O2 sats documented on 4 L nasal cannula oxygen patient did have white count of 30,000 with a left shift creatinine 0.89 lactic acid was 2.7 liver enzymes normal UA has been negative patient did have abdominal pelvis CT no nephrolithiasis or hydronephrosis focal patchy opacity posterior mid right lower lobe correlate to exclude pneumonia did have a chest x-ray patchy right perihilar opacity concerning for infiltrate patient has been started on Rocephin and Zithromax infectious disease was consulted for further management of antibiotic therapy Review of Systems Positive point and negatives has been mentioned in the HPI, complete review of systems was performed and all other systems are negative Past Medical History Past Medical History: Asthma, Chest Pain / Angina, Heart Failure, COPD, Diabetes Mellitus, GERD/Reflux, GI Bleed, Hyperlipidemia, Hypertension, Memory Impairment, Mitral Valve Prolapse (MVP), Sleep Apnea/CPAP/BIPAP, Thyroid Disorder Additional Past Medical History / Comment(s): MIGRAINES,ARRHYTHMIA-RAPID HEART BEAT, CARDIAC BRIDGE, COLITIS, DIVERTICULUTIS, NON ULCER DYSPEPSIA.,SHORT TERM MEMORY LOSS, CYSTS ON LIVER, DDD, BACK PAIN, USES CANE, HYPOGLYCEMIA ., UMBILICAL HERNIA. , PT STATES JUST GETTING OVER A "COLD" WITH A COUGH & SORE TH ROAT- TAKING CIPRO- PT TO NOTIFY DR CHEEMA IF COLD SYMPTOMS CONTINUE. History of Any Multi-Drug Resistant Organisms: MRSA Year Discovered:: 2016 MDRO Source:: SINUS Past Surgical History: Breast Surgery, Cholecystectomy, Heart Catheterization, Hernia Repair, Orthopedic Surgery, Tonsillectomy Additional Past Surgical History / Comment(s): CHEST WALL-LUMP REMOVED, LEFT SHOULDER,LEFT LEG-LUMPECTOMY X 3, BILAT NECK-LUMPECTOMY, KNEE- ARTHROSCOPIC,COLONOSCOPY, EGD, LIVER BX., BREAST LUMPECTOMY. Past Anesthesia/Blood Transfusion Reactions: Motion Sickness, Postoperative Nausea & Vomiting (PONV) Additional Past Anesthesia/Blood Transfusion Reaction / Comm: PROBLEM WITH REGLAN GIVEN- VOMITED BLOOD Past Psychological History: Anxiety, Depression Smoking Status: Never smoker Past Alcohol Use History: None Reported Past Drug Use History: None Reported - Past Family History Mother Family Medical History: Cancer Father Family Medical History: Cancer Brother(s) Family Medical History: Cancer Medications and Allergies Home Medications Medication Instructions Recorded Confirmed Type Esomeprazole Magnesium [NexIUM] 40 mg PO DAILY 06/20/14 09/30/24 History Furosemide [Lasix] 40 mg PO DAILY 06/20/14 09/30/24 History Metoprolol Succinate (ER) [Toprol 50 mg PO BID 06/20/14 09/30/24 History XL] Nortriptyline [Pamelor] 20 mg PO HS 06/20/14 09/30/24 History Albuterol Inhaler [Ventolin Hfa 2 puff INHALATION RT-Q6H PRN 06/02/18 09/30/24 History Inhaler] HYDROcodone/APAP 10-325MG [[place] 1 tab PO TID 06/02/18 09/30/24 History 10-325] Levothyroxine Sodium [Levoxyl] 200 mcg PO MOTUWETHFRSA 06/02/18 09/30/24 History Montelukast [Singulair] 10 mg PO HS 01/03/24 09/30/24 History Rosuvastatin Calcium 5 mg PO DAILY 01/03/24 09/30/24 History amLODIPine [Norvasc] 2.5 mg PO DAILY 01/03/24 09/30/24 History Cyclobenzaprine [Flexeril] 10 mg PO TID 09/30/24 09/30/24 History Tiotropium 2.5 Mcg/Puff [Spiriva 2 puff INHALATION RT-DAILY 09/30/24 09/30/24 History Respimat 2.5 Mcg] Allergies Allergy/AdvReac Type Severity Reaction Status Date / Time shellfish derived [Shellfish] Allergy Unknown Swelling Verified 09/30/24 08:10 caffeine Allergy Rapid Verified 09/30/24 08:10 Heart Rate clarithromycin [From Biaxin] Allergy Nausea & Verified 09/30/24 08:10 Vomiting hydromorphone HCl Allergy Vomiting, Verified 09/30/24 08:10 [From Dilaudid] Rash metoclopramide HCl Allergy Vomiting Verified 09/30/24 08:10 [From Reglan] blood Penicillins Allergy Anaphylaxis, Verified 09/30/24 08:10 Rapid Heart Rate, Pass out Sulfa (Sulfonamide Allergy Rash/Hives, Verified 09/30/24 08:10 Antibiotics) NAUSEA sulfamethoxazole Allergy Nausea & Verified 09/30/24 08:10 [From Bactrim] Vomiting/Rash, Hives trimethoprim [From Bactrim] Allergy Nausea & Verified 09/30/24 08:10 Vomiting/Rash, Hives egg AdvReac Nausea & Verified 09/30/24 08:10 Vomiting Iodinated Contrast Media AdvReac Swelling Verified 09/30/24 08:10 [Iodinated Contrast Media - IV Dye] Physical Exam Vitals: Vital Signs Temp Pulse Resp BP Pulse Ox 09/30/24 08:33 90 22 128/82 97 09/30/24 06:18 97.7 F 96 22 136/80 98 09/30/24 05:32 98.4 F 99 18 160/97 98 09/30/24 05:14 97.4 F L 110 H 18 161/90 99 Intake and Output 09/29/24 09/30/24 09/30/24 22:59 06:59 14:59 Other: Weight 130.635 kg GENERAL DESCRIPTION: Elderly male up in the bed in bed, no distress. No tachypnea or accessory muscle of respiration use. HEENT: Shows Pallor , no scleral icterus. Oral mucous membrane is dry. No pharyngeal erythema or thrush NECK: Trachea central, no thyromegaly. LUNGS: Unlabored breathing. Decreased breath sound the base. HEART: S1, S2, regular rate and rhythm. No loud murmur ABDOMEN: Soft, right flank tenderness , no guarding or rigidity, no organomegaly EXTREMITIES: No edema of feet. SKIN: No rash, no masses palpable. NEUROLOGICAL: The patient is awake, alert, oriented x3, mood and affect normal. Results CBC & Chem 7: 09/30/24 05:20 09/30/24 05:20 Labs: Abnormal Lab Results - Last 24 Hours (Table) 09/30/24 09/30/24 09/30/24 Range/Units 05:20 05:20 05:20 WBC 30.6 H (3.8-10.6) k/uL Neutrophils # (Manual) 27.50 H (1.3-7.7) k/uL Metamyelocytes # (Man) 0.31 H (0) k/uL Glucose 151 H (74-99) mg/dL Plasma Lactic Acid Cuauhtemoc 4.3 H* (0.7-2.0) mmol/L 09/30/24 Range/Units 09:25 WBC (3.8-10.6) k/uL Neutrophils # (Manual) (1.3-7.7) k/uL Metamyelocytes # (Man) (0) k/uL Glucose (74-99) mg/dL Plasma Lactic Acid Cuauhtemoc 3.0 H* (0.7-2.0) mmol/L Assessment and Plan (1) Leukocytosis Current Visit: Yes Status: Acute Code(s): D72.829 - ELEVATED WHITE BLOOD CELL COUNT, UNSPECIFIED SNOMED Code(s): 920618218 (2) Pneumonia Current Visit: Yes Status: Acute Code(s): J18.9 - PNEUMONIA, UNSPECIFIED ORGANISM SNOMED Code(s): 991117655 (3) Allergy to multiple antibiotics Current Visit: Yes Status: Acute Code(s): Z88.1 - ALLERGY STATUS TO OTHER ANTIBIOTIC AGENTS SNOMED Code(s): 303452758 Plan: 1patient with significant elevated white count in this patient presented to hospital with right flank and lumbar area pain and did have some tenderness to the right flank area however the patient did have a negative UA CT abdominal pelvis urination abnormality to the right kidney rather more concerning for possible focal pneumonia patient also complaining of cough and bring up some greenish sputum pneumonia not entirely excluded 2-patient with multiple antibiotic ALLERGIES that would limit the number of antibiotic safe to use 3-try to obtain a sputum for Gram stain and culture 4-will continue with the empiric Rocephin and Zithromax while waiting for the workup to be completed We will follow on clinical condition and cultures to further adjust medication if needed Thank you for this consultation we will follow the patient along with you Dictation was produced using [employer] software. please excuse any grammatical, word or spelling errors.
--- NOTE | 2024-10-01 00:31 | HP ---
HISTORY AND PHYSICAL CHIEF COMPLAINT: Abdominal pain. HISTORY OF PRESENT ILLNESS: This is a 64-year-old gentleman with a past medical history of asthma, COPD, history of CHF, was complaining of abdominal pain from loin to groin. The patient also had some abdominal discomfort. The patient came to [facility] and there was no evidence of urolithiasis, but a right lower lobe infiltrate was suspected, pyelonephritis also considered as the possibility, but UA is not available. Lactic acid elevated. There is no history of any fever, rigors, or chills. PAST MEDICAL HISTORY: History of asthma, COPD. Rest of the chart as well as history is noted. MEDICATIONS: Prior to admission include Norvasc. Dose and rest of medications reviewed. ALLERGIES: Multiple, shellfish. Rest of allergies noted. FAMILY HISTORY: History of cancer in the family. SOCIAL HISTORY: Remote history of smoking. REVIEW OF SYSTEMS: Fourteen-point review of systems is negative except as mentioned earlier. PHYSICAL EXAMINATION: VITAL SIGNS: Pulse is 90, blood pressure 128/80, respirations 20. HEENT: Conjunctivae normal. NECK: No JVD. CARDIOVASCULAR: S1 and S2. RESPIRATIONS: Breath sounds diminished at the bases. A few scattered rhonchi and crackles. ABDOMEN: Soft, minimal tenderness in the back posterior part present. LEGS: No edema. NERVOUS SYSTEM: Nonfocal. LABORATORY DATA: Reviewed. WBC 13.6. ASSESSMENT: 1. Possible right lower lobe pneumonia with sepsis present on admission. 2. Abdominal pain possibly secondary to pleuritis. 3. Asthma, chronic obstructive pulmonary disease. 4. Congestive heart failure. 5. Diabetes mellitus, type 2. 6. Hypertension. 7. Hyperlipidemia. 8. History of multiple complex medical issues. RECOMMENDATIONS: Recommend to continue current medications, and continue symptomatic treatment. Otherwise, at this time, I recommend empiric antibiotics. Infectious Disease evaluation and Surgery is also seeing the patient. Guarded prognosis. Further recommendations to follow. The patient is started on Rocephin at this time. Further recommendations to follow. MMODL / IJN: [id number] /
[2024-10-01] MEDS: PANTOPRAZOLE 40 MG TABLET PO SCH (06:03)
[2024-10-01] MEDS: LEVOTHYROXINE 100 MCG TAB PO SCH (06:03)
[2024-10-01 08:26] LABS: Basophils # (A) 0.1 k/uL (0-0.2); Basophils % (A) 0 %; Eosinophils # (A) 0.1 k/uL (0-0.7); Eosinophils % (A) 0 %; HCT 44.5 % (39.0-53.0); HGB 14.3 gm/dL (13.0-17.5); Lymphocytes # (A) 2.3 k/uL (1.0-4.8); Lymphocytes % (A) 12 %; MCH 27.7 pg (25.0-35.0); MCHC 32.1 g/dL (31.0-37.0); MCV 86.3 fL (80.0-100.0); Monocytes # (A) 0.9 k/uL (0-1.0); Monocytes % (A) 5 %; Neutrophils # (A) 15.3 k/uL (1.3-7.7); Neutrophils % (A) 81 %; Platelet Count 184 k/uL (150-450); RBC 5.15 m/uL (4.30-5.90); RDW 14.3 % (11.5-15.5); WBC 18.9 k/uL (3.8-10.6)
[2024-10-01] MEDS: ATORVASTATIN 10 MG TAB PO SCH (08:33)
[2024-10-01] MEDS: amLODIPine 2.5 MG TAB PO SCH (08:33)
[2024-10-01 08:40] LABS: African American GFR (CKD) >90 (>60 ml/min/1.73 sqM); Anion Gap 9 mmol/L; Blood Urea Nitrogen 20 mg/dL (9-20); Calcium 9.2 mg/dL (8.4-10.2); Carbon Dioxide 25 mmol/L (22-30); Chloride 104 mmol/L (98-107); Glucose 108 mg/dL (74-99); Non-African American GFR(CKD) >90 (>60 ml/min/1.73 sqM); Sodium 138 mmol/L (137-145)
[2024-10-01] MEDS: ONDANSETRON 4 MG/2 ML VIAL IVP PRN (08:42)
--- NOTE | 2024-10-01 11:58 | P.PN ---
Subjective Progress Note Date: 10/01/24 Principal diagnosis: Abdominal pain Patient says his pain is somewhat improved today. White blood cell count better at 18.9. Lactic acidosis resolved. Apparently he was seen by pulmonary and they do not believe there is pneumonia present. Urinalysis looks good. Objective - Vital Signs Vital signs: Vital Signs Temp 97.7 F 10/01/24 08:35 Pulse 92 10/01/24 08:35 Resp 18 10/01/24 08:35 BP 135/83 10/01/24 08:35 Pulse Ox 99 10/01/24 08:35 FiO2 Intake & Output 09/30/24 10/01/24 10/01/24 18:59 06:59 18:59 Intake Total 500 Output Total 300 Balance 200 Weight 130.635 kg Intake: Oral 500 Output: Urine 300 Other: Voiding Method Urinal Urinal - Exam Abdomen: Soft, nondistended, mild right mid abdominal tenderness - Labs CBC & Chem 7: 10/01/24 08:10 10/01/24 08:10 Labs: Abnormal Lab Results - Last 24 Hours (Table) 09/30/24 09/30/24 09/30/24 Range/Units 13:17 15:50 16:11 WBC (3.8-10.6) k/uL Neutrophils # (1.3-7.7) k/uL Glucose (74-99) mg/dL Plasma Lactic Acid Cuauhtemoc 3.1 H* 6.7 H* (0.7-2.0) mmol/L Urine Protein Trace H (Negative) Urine Ketones Trace H (Negative) 09/30/24 10/01/24 10/01/24 Range/Units 20:42 08:10 08:10 WBC 18.9 H (3.8-10.6) k/uL Neutrophils # 15.3 H (1.3-7.7) k/uL Glucose 108 H (74-99) mg/dL Plasma Lactic Acid Cuauhtemoc 2.7 H* (0.7-2.0) mmol/L Urine Protein (Negative) Urine Ketones (Negative) Microbiology - Last 24 Hours (Table) 09/30/24 15:50 Gram Stain - Final Sputum Sputum Culture - Final Assessment and Plan (1) Abdominal pain Narrative/Plan: Patient still having pain although somewhat improved. Etiology remains unclear. White blood cell count is improved. Continue diet as tolerated. Will follow. Current Visit: Yes Status: Acute Code(s): R10.9 - UNSPECIFIED ABDOMINAL PAIN SNOMED Code(s): 14273515
--- NOTE | 2024-10-01 14:19 | P.CNPUL ---
History of Present Illness Consult date: 10/01/24 Requesting physician: Mike Fletcher Reason for consult: abnormal CXR/CT Chief complaint: Right lower abdominal and flank pain History of present illness: This is a pleasant 64-year-old male patient who has a history of nocturnal hypoxemia maintained on home oxygen at night, hypertension, hyperlipidemia, mild intermittent chronic bronchial asthma, hypothyroidism, diabetes mellitus, gastroesophageal reflux disease. He presented here to the emergency room yesterday with complaints of right lower quadrant pain radiating around to his back and flank area. CT scan of the abdomen revealed no nephrolithiasis or hydronephrosis. There is a focal patchy opacity posterior medial right lower lobe. Minimal proximal sigmoid diverticulosis without acute diverticulitis. Chest x-ray reveals and exam limited by body habitus. The focal opacity noted on CAT scan is not clearly seen on the chest x-ray. Department. The patient has no real pulmonary complaints. He states he does have some shortness of breath on exertion. Dry nonproductive cough. He is maintaining good O2 saturations in the high 90s on room air. He is afebrile. Hemodynamically stable. Calcitonin negative at 0.04. Initial white count 30.6. Currently white count 18.9. Hemoglobin 14.3. Platelets 184. Sodium 138. Potassium 4.0. Bicarb 25. BUN 20. Creatinine 0.81. Glucose 108. Amylase 52. Lipase 70. Troponin negative x 1. Urine Legionella antigen negative. Urinalysis clean. Review of Systems REVIEW OF SYSTEMS: CONSTITUTIONAL: Denies any recent significant weight loss or weight gain. EYES: Denies change in vision. EARS, NOSE, MOUTH, THROAT: Denies headaches, denies sore throat. CARDIOVASCULAR: Denies chest pain, palpitations or syncopal episodes. RESPIRATORY: Denies shortness of breath, cough, congestion or hemoptysis. GASTROINTESTINAL: Positive for right lower quadrant abdominal pain that radiates to his back and flank area GENITOURINARY: Denies hematuria, denies infections. MUSKULOSKELETAL: Denies pain, denies swelling. INTEGUMENTARY: Denies rash, denies eczema. NEUROLOGICAL: Denies recent memory loss, no recent seizure activity. PSYCHIATRIC: Denies anxiety, denies depression. HEMATOLOGIC/LYMPHATIC: Denies anemia, denies enlarged lymph nodes. Past Medical History Past Medical History: Asthma, Chest Pain / Angina, Heart Failure, COPD, Diabetes Mellitus, GERD/Reflux, GI Bleed, Hyperlipidemia, Hypertension, Memory Impair ment, Mitral Valve Prolapse (MVP), Sleep Apnea/CPAP/BIPAP, Thyroid Disorder Additional Past Medical History / Comment(s): MIGRAINES,ARRHYTHMIA-RAPID HEART BEAT, CARDIAC BRIDGE, COLITIS, DIVERTICULUTIS, NON ULCER DYSPEPSIA.,SHORT TERM MEMORY LOSS, CYSTS ON LIVER, DDD, BACK PAIN, USES CANE, HYPOGLYCEMIA ., UMBILICAL HERNIA. , PT STATES JUST GETTING OVER A "COLD" WITH A COUGH & SORE THROAT- TAKING CIPRO- PT TO NOTIFY DR CHEEMA IF COLD SYMPTOMS CONTINUE. History of Any Multi-Drug Resistant Organisms: MRSA Date of last positivie culture/infection: 2015 MDRO Source:: SINUS Past Surgical History: Breast Surgery, Cholecystectomy, Heart Catheterization, Hernia Repair, Orthopedic Surgery, Tonsillectomy Additional Past Surgical History / Comment(s): CHEST WALL-LUMP REMOVED, LEFT SHOULDER,LEFT LEG-LUMPECTOMY X 3, BILAT NECK-LUMPECTOMY, KNEE-ARTHROSCO PIC,COLONOSCOPY, EGD, LIVER BX., BREAST LUMPECTOMY. Past Anesthesia/Blood Transfusion Reactions: Motion Sickness, Postoperative Nausea & Vomiting (PONV) Additional Past Anesthesia/Blood Transfusion Reaction / Comment(s): PROBLEM WITH REGLAN GIVEN- VOMITED BLOOD Past Psychological History: Anxiety, Depression Smoking Status: Never smoker Past Alcohol Use History: None Reported Past Drug Use History: None Reported - Past Family History Mother Family Medical History: Cancer Father Family Medical History: Cancer Brother(s) Family Medical History: Cancer Medications and Allergies Home Medications Medication Instructions Recorded Confirmed Type Esomeprazole Magnesium [NexIUM] 40 mg PO DAILY 06/20/14 09/30/24 History Furosemide [Lasix] 40 mg PO DAILY 06/20/14 09/30/24 History Metoprolol Succinate (ER) [Toprol 50 mg PO BID 06/20/14 09/30/24 History XL] Nortriptyline [Pamelor] 20 mg PO HS 06/20/14 09/30/24 History Albuterol Inhaler [Ventolin Hfa 2 puff INHALATION RT-Q6H PRN 06/02/18 09/30/24 History Inhaler] HYDROcodone/APAP 10-325MG [[place] 1 tab PO TID 06/02/18 09/30/24 History 10-325] Levothyroxine Sodium [Levoxyl] 200 mcg PO MOTUWETHFRSA 06/02/18 09/30/24 History Montelukast [Singulair] 10 mg PO HS 01/03/24 09/30/24 History Rosuvastatin Calcium 5 mg PO DAILY 01/03/24 09/30/24 History amLODIPine [Norvasc] 2.5 mg PO DAILY 01/03/24 09/30/24 History Cyclobenzaprine [Flexeril] 10 mg PO TID 09/30/24 09/30/24 History Tiotropium 2.5 Mcg/Puff [Spiriva 2 puff INHALATION RT-DAILY 09/30/24 09/30/24 History Respimat 2.5 Mcg] Allergies Allergy/AdvReac Type Severity Reaction Status Date / Time shellfish derived [Shellfish] Allergy Unknown Swelling Verified 09/30/24 08:10 caffeine Allergy Rapid Verified 09/30/24 08:10 Heart Rate clarithromycin [From Biaxin] Allergy Nausea & Verified 09/30/24 08:10 Vomiting hydromorphone HCl Allergy Vomiting, Verified 09/30/24 08:10 [From Dilaudid] Rash metoclopramide HCl Allergy Vomiting Verified 09/30/24 08:10 [From Reglan] blood Penicillins Allergy Anaphylaxis, Verified 09/30/24 08:10 Rapid Heart Rate, Pass out Sulfa (Sulfonamide Allergy Rash/Hives, Verified 09/30/24 08:10 Antibiotics) NAUSEA sulfamethoxazole Allergy Nausea & Verified 09/30/24 08:10 [From Bactrim] Vomiting/Rash, Hives trimethoprim [From Bactrim] Allergy Nausea & Verified 09/30/24 08:10 Vomiting/Rash, Hives egg AdvReac Nausea & Verified 09/30/24 08:10 Vomiting Iodinated Contrast Media AdvReac Swelling Verified 09/30/24 08:10 [Iodinated Contrast Media - IV Dye] Physical Exam Vitals: Vital Signs Temp Pulse Pulse Resp BP BP Pulse Ox 10/01/24 13:20 87 10/01/24 13:10 84 10/01/24 11:00 89 17 130/79 99 10/01/24 08:35 97.7 F 92 18 135/83 99 10/01/24 08:09 86 10/01/24 07:56 100 10/01/24 07:54 82 10/01/24 04:00 98.5 F 73 20 124/59 95 10/01/24 00:00 93 16 123/67 98 09/30/24 21:08 98.2 F 80 18 143/87 98 09/30/24 19:41 83 18 140/88 99 09/30/24 18:39 92 09/30/24 18:30 86 09/30/24 17:00 88 20 130/74 96 09/30/24 16:06 72 09/30/24 15:57 69 09/30/24 14:14 98 F 18 139/85 99 Intake and Output 09/30/24 10/01/24 10/01/24 22:59 06:59 14:59 Intake Total 500 Output Total 300 Balance 200 Intake: Oral 500 Output: Urine 300 Other: Voiding Method Urinal Urinal Weight 130.635 kg GENERAL EXAM: Alert, 64-year-old male patient, on room air, fairly comfortable in no apparent distress. HEAD: Normocephalic. EYES: Normal reaction of pupils, equal size. NOSE: Clear with pink turbinates. THROAT: No erythema or exudates. NECK: No masses, no JVD. CHEST: No chest wall deformity. LUNGS: Equal air entry with no crackles, wheeze, rhonchi or dullness. CVS: S1 and S2 normal with no audible murmur, regular rhythm. ABDOMEN: No hepatosplenomegaly, normal bowel sounds, no guarding or rigidity. SPINE: No scoliosis or deformity SKIN: No rashes CENTRAL NERVOUS SYSTEM: No focal deficits, tone is normal in all 4 extremities. EXTREMITIES: There is no peripheral edema. No clubbing, no cyanosis. Peripheral pulses are intact. Results - Laboratory Findings CBC and BMP: 10/01/24 08:10 10/01/24 08:10 PT/INR, D-dimer PT 11.2 sec (10.0-12.5) 09/30/24 05:20 INR 1.0 (<1.2) 09/30/24 05:20 Abnormal lab findings: Abnormal Labs 09/30/24 09/30/24 09/30/24 05:20 05:20 05:20 WBC 30.6 H Neutrophils # Neutrophils # (Manual) 27.50 H Metamyelocytes # (Man) 0.31 H Glucose 151 H Plasma Lactic Acid Cuauhtemoc 4.3 H* Urine Protein Urine Ketones 09/30/24 09/30/24 09/30/24 09:25 13:17 15:50 WBC Neutrophils # Neutrophils # (Manual) Metamyelocytes # (Man) Glucose Plasma Lactic Acid Cuauhtemoc 3.0 H* 3.1 H* Urine Protein Trace H Urine Ketones Trace H 09/30/24 09/30/24 10/01/24 16:11 20:42 08:10 WBC 18.9 H Neutrophils # 15.3 H Neutrophils # (Manual) Metamyelocytes # (Man) Glucose Plasma Lactic Acid Cuauhtemoc 6.7 H* 2.7 H* Urine Protein Urine Ketones 10/01/24 08:10 WBC Neutrophils # Neutrophils # (Manual) Metamyelocytes # (Man) Glucose 108 H Plasma Lactic Acid Cuauhtemoc Urine Protein Urine Ketones - Diagnostic Findings Chest x-ray: image reviewed Assessment and Plan Assessment: Acute right lower quadrant pain that radiates to the right flank area and back. CT scan of the abdomen ruled out nephrolithiasis or hydronephrosis. There is minimal proximal sigmoid diverticulosis without acute diverticulitis Leukocytosis of unclear etiology Right lower lung opacity/atelectasis. Sputum culture revealed no growth. Procalcitonin negative at 0.04 History of nocturnal hypoxemia without significant obstructive sleep apnea, on home oxygen History of mild intermittent chronic bronchial asthma Hypothyroidism Hypertension Diabetes mellitus Hyperlipidemia Gastroesophageal reflux disease Plan: The patient was seen and evaluated Imaging, labs and medications reviewed Stable and on room air Procalcitonin negative ID service for leukocytosis Currently on ceftriaxone and azithromycin Surgical services following for abdominal pain We will continue to follow and make further recommendations based on his clinical status I have personally seen and examined the patient, performed the documentation and the assessment and plan as written. Number of minutes spent on the visit: 20 Dictation was produced using [employer] software. Please excuse any grammatical, word or spelling errors.
[2024-10-01 16:14] LABS: Glucose,Whole Blood 107 mg/dL (70-110)
[2024-10-01 21:53] LABS: Glucose,Whole Blood 102 mg/dL (70-110)
[2024-10-02 06:51] LABS: Glucose,Whole Blood 103 mg/dL (70-110)
[2024-10-02 09:49] LABS: Basophils # (A) 0.05 X 10*3/uL (0.00-0.10); Basophils % (A) 0.5 %; Eosinophils # (A) 0.16 X 10*3/uL (0.04-0.35); Eosinophils % (A) 1.6 %; HCT 42.9 % (39.6-50.0); HGB 12.8 g/dL (13.0-17.0); Lymphocytes % (A) 26.9 %; MCH 26.4 pg (27.0-32.0); MCHC 29.8 g/dL (32.0-37.0); MCV 88.5 FL (80.0-97.0); Mean Platelet Volume 11.3 FL (9.5-12.2); Monocytes # (A) 1.09 X 10*3/uL (0.20-1.00); Monocytes % (A) 10.8 %; NRBC Per 100 WBC 0 X 10*3/uL (0.00-0.01); Neutrophils # (A) 5.99 X 10*3/uL (1.80-7.70); Neutrophils % (A) 59.6 %; Platelet Count 179 X 10*3/uL (140-440); RBC 4.85 X 10*6/uL (4.40-5.60); RDW 14.2 % (11.5-14.5); WBC 10.05 X 10*3/uL (4.50-10.00)
[2024-10-02 09:59] LABS: Blood Urea Nitrogen 17.8 mg/dL (9.0-27.0); Carbon Dioxide 29.7 mmol/L (21.6-31.8); Chloride 103 mmol/L (96-109); Glucose 100 mg/dL (70-110); Sodium 141 mmol/L (135-145)
[2024-10-02 10:00] LABS: Calcium 8.6 mg/dL (8.7-10.3)
[2024-10-02 11:34] LABS: Glucose,Whole Blood 130 mg/dL (70-110)
--- NOTE | 2024-10-02 11:46 | P.PN ---
Subjective Progress Note Date: 10/02/24 Principal diagnosis: Abdominal pain Patient feels better today. Still some mild right flank pain that radiates down to the right groin region. White blood cell count now normal at 10. Tolerating diet. Objective - Vital Signs Vital signs: Vital Signs Temp 97.7 F 10/02/24 07:49 Pulse 80 10/02/24 09:18 Resp 16 10/02/24 08:17 BP 149/81 10/02/24 07:49 Pulse Ox 98 10/02/24 07:49 FiO2 Intake & Output 10/01/24 10/02/24 10/02/24 18:59 06:59 18:59 Intake Total 1080 Output Total 1400 600 Balance -1400 480 Intake: Oral 1080 Output: Urine 1400 600 Other: Voiding Method Urinal Urinal Urinal # Voids 1 - Exam Abdomen: Soft, nondistended, mild right mid abdominal tenderness - Labs CBC & Chem 7: 10/02/24 04:15 10/02/24 04:15 Labs: Abnormal Lab Results - Last 24 Hours (Table) 10/02/24 10/02/24 10/02/24 Range/Units 04:15 04:15 11:33 WBC 10.05 H (4.50-10.00) X 10*3/uL Hgb 12.8 L (13.0-17.0) g/dL MCH 26.4 L (27.0-32.0) pg MCHC 29.8 L (32.0-37.0) g/dL Immature Gran # 0.06 H (0.00-0.04) X 10*3/uL Monocytes # 1.09 H (0.20-1.00) X 10*3/uL POC Glucose (mg/dL) 130 H (70-110) mg/dL Calcium 8.6 L (8.7-10.3) mg/dL Microbiology - Last 24 Hours (Table) 09/30/24 09:25 Blood Culture - Preliminary Blood 09/30/24 14:16 Urine Culture - Final Urine,Clean Catch Assessment and Plan (1) Abdominal pain Narrative/Plan: Patient doing better clinically. Continue antibiotics per infectious disease. Spoke with infectious disease. Etiology remains unclear. Patient did have a s mall infiltrate base of right lung which could have been the source of the issue patient also by description could have some degree of pyelonephritis on the right-hand side. Regardless patient is improving. No surgical intervention planned. I will sign off at this point. Please reconsult if needed. Current Visit: Yes Status: Acute Code(s): R10.9 - UNSPECIFIED ABDOMINAL PAIN SNOMED Code(s): 77270479
--- NOTE | 2024-10-02 13:29 | P.PN ---
Subjective Progress Note Date: 10/02/24 This is a pleasant 64-year-old male patient who has a history of nocturnal hypoxemia maintained on home oxygen at night, hypertension, hyperlipidemia, mild intermittent chronic bronchial asthma, hypothyroidism, diabetes mellitus, gastroesophageal reflux disease. He presented here to the emergency room ye sterday with complaints of right lower quadrant pain radiating around to his back and flank area. CT scan of the abdomen revealed no nephrolithiasis or hydronephrosis. There is a focal patchy opacity posterior medial right lower lobe. Minimal proximal sigmoid diverticulosis without acute diverticulitis. Chest x-ray reveals and exam limited by body habitus. The focal opacity noted on CAT scan is not clearly seen on the chest x-ray. Department. The patient has no real pulmonary complaints. He states he does have some shortness of breath on exertion. Dry nonproductive cough. He is maintaining good O2 saturations in the high 90s on room air. He is afebrile. Hemodynamically stable. Calcitonin negative at 0.04. Initial white count 30.6. Currently white count 18.9. Hemoglobin 14.3. Platelets 184. Sodium 138. Potassium 4.0. Bicarb 25. BUN 20. Creatinine 0.81. Glucose 108. Amylase 52. Lipase 70. Troponin negative x 1. Urine Legionella antigen negative. Urinalysis clean. The patient is seen today October 02, 2024 in follow-up on the regular medical floor. He is currently sitting up in a chair at the bedside. Awake and alert in no acute distress. No worsening shortness of breath, cough or congestion. Maintaining O2 saturations in the 90s on 2 L/min per nasal cannula. He is still having some issues with some right lower quadrant pain. No surgical interve ntion planned. His procalcitonin was negative at 0.04. He does remain on Rocephin per infectious disease. White count improving currently 10.0. Hemoglobin 12.8. Platelets 179. Sodium 141. Potassium 4.0. Bicarb 30. BUN 18. Creatinine 1.0. Glucose 100. Objective - Vital Signs Vital signs: Vital Signs Temp 97.7 F 10/02/24 07:49 Pulse 80 10/02/24 09:18 Resp 16 10/02/24 08:17 BP 149/81 10/02/24 07:49 Pulse Ox 98 10/02/24 07:49 FiO2 Intake & Output 10/01/24 10/02/24 10/02/24 18:59 06:59 18:59 Intake Total 1080 Output Total 1400 600 Balance -1400 480 Intake: Oral 1080 Output: Urine 1400 600 Other: Voiding Method Urinal Urinal Urinal # Voids 1 - Exam GENERAL EXAM: Alert, 64-year-old male, up in a chair, on 2 L nasal cannula, fairly comfortable in no apparent distress. HEAD: Normocephalic. EYES: Normal reaction of pupils, equal size. NOSE: Clear with pink turbinates. THROAT: No erythema or exudates. NECK: No masses, no JVD. CHEST: No chest wall deformity. LUNGS: Equal air entry with no crackles, wheeze, rhonchi or dullness. CVS: S1 and S2 normal with no audible murmur, regular rhythm. ABDOMEN: No hepatosplenomegaly, normal bowel sounds, no guarding or rigidity. SPINE: No scoliosis or deformity SKIN: No rashes CENTRAL NERVOUS SYSTEM: No focal deficits, tone is normal in all 4 extremities. EXTREMITIES: There is no peripheral edema. No clubbing, no cyanosis. Peripheral pulses are intact. - Labs CBC & Chem 7: 10/02/24 04:15 10/02/24 04:15 Labs: Abnormal Lab Results - Last 24 Hours (Table) 10/02/24 10/02/24 10/02/24 Range/Units 04:15 04:15 11:33 WBC 10.05 H (4.50-10.00) X 10*3/uL Hgb 12.8 L (13.0-17.0) g/dL MCH 26.4 L (27.0-32.0) pg MCHC 29.8 L (32.0-37.0) g/dL Immature Gran # 0.06 H (0.00-0.04) X 10*3/uL Monocytes # 1.09 H (0.20-1.00) X 10*3/uL POC Glucose (mg/dL) 130 H (70-110) mg/dL Calcium 8.6 L (8.7-10.3) mg/dL Microbiology - Last 24 Hours (Table) 09/30/24 09:25 Blood Culture - Preliminary Blood 09/30/24 14:16 Urine Culture - Final Urine,Clean Catch Assessment and Plan Assessment: Acute right lower quadrant pain that radiates to the right flank area and back. CT scan of the abdomen ruled out nephrolithiasis or hydronephrosis. There is minimal proximal sigmoid diverticulosis without acute diverticulitis Leukocytosis of unclear etiology, improving Right lower lung opacity/atelectasis. Sputum culture revealed no growth. Procalcitonin negative at 0.04 History of nocturnal hypoxemia without significant obstructive sleep apnea, on home oxygen History of mild intermittent chronic bronchial asthma Hypothyroidism Hypertension Diabetes mellitus Hyperlipidemia Gastroesophageal reflux disease Plan: The patient was seen and evaluated Labs and medications reviewed Stable and on room air Currently on ceftriaxone No surgical intervention required Titrate down/off the FiO2 as tolerated We will continue to follow I have personally seen and examined the patient, performed the documentation and the assessment and plan as written. Number of minutes spent on the visit: 10 Dictation was produced using [employer] dictation software. Please excuse any grammatical, word or spelling errors.
--- NOTE | 2024-10-02 15:13 | P.PN ---
Subjective Progress Note Date: 10/01/24 Principal diagnosis: Reason for follow-up is leukocytosis Patient is 64-year-old male with a past medical history significant for diabetes mellitus COPD hypertension hyperlipidemia sleep apnea presenting to the hospital for evaluation of pain to the right flank area as well as right thoracic and lumbar area patient also have elevated white count of 30,000 prompting this consultation. On today's evaluation that is 10/01/2024, patient did not have any fever and denies any chills, patient is breathing comfortably on room air, patient with no chest pain did have a cough with occasional sputum, patient did not have any abdominal pain nausea vomiting or any loose stools. Patient white count is down to 18.9, creatinine 0.81 Objective - Vital Signs Vital signs: Vital Signs Temp 97.7 F 10/01/24 08:35 Pulse 92 10/01/24 08:35 Resp 18 10/01/24 08:35 BP 135/83 10/01/24 08:35 Pulse Ox 99 10/01/24 08:35 FiO2 Intake & Output 09/30/24 10/01/24 10/01/24 18:59 06:59 18:59 Intake Total 500 Output Total 300 Balance 200 Weight 130.635 kg Intake: Oral 500 Output: Urine 300 Other: Voiding Method Urinal Urinal - Exam GENERAL DESCRIPTION: An elderly male lying in bed in no distress RESPIRATORY SYSTEM: Unlabored breathing , decreased breath sounds at bases HEART: S1 S2 regular rate and rhythm , ABDOMEN: Soft , no tenderness EXTREMITIES: No edema feet - Labs CBC & Chem 7: 10/02/24 04:15 10/02/24 04:15 Labs: Abnormal Lab Results - Last 24 Hours (Table) 09/30/24 09/30/24 09/30/24 Range/Units 13:17 15:50 16:11 WBC (3.8-10.6) k/uL Neutrophils # (1.3-7.7) k/uL Glucose (74-99) mg/dL Plasma Lactic Acid Cuauhtemoc 3.1 H* 6.7 H* (0.7-2.0) mmol/L Urine Protein Trace H (Negative) Urine Ketones Trace H (Negative) 09/30/24 10/01/24 10/01/24 Range/Units 20:42 08:10 08:10 WBC 18.9 H (3.8-10.6) k/uL Neutrophils # 15.3 H (1.3-7.7) k/uL Glucose 108 H (74-99) mg/dL Plasma Lactic Acid Cuauhtemoc 2.7 H* (0.7-2.0) mmol/L Urine Protein (Negative) Urine Ketones (Negative) Microbiology - Last 24 Hours (Table) 09/30/24 15:50 Gram Stain - Final Sputum Sputum Culture - Final Assessment and Plan (1) Leukocytosis Current Visit: Yes Status: Acute Code(s): D72.829 - ELEVATED WHITE BLOOD CARYL L COUNT, UNSPECIFIED SNOMED Code(s): 054528209 (2) Pneumonia Current Visit: Yes Status: Acute Code(s): J18.9 - PNEUMONIA, UNSPECIFIED ORGANISM SNOMED Code(s): 359801698 (3) Allergy to multiple antibiotics Current Visit: Yes Status: Acute Code(s): Z88.1 - ALLERGY STATUS TO OTHER ANTIBIOTIC AGENTS SNOMED Code(s): 902216673 Plan: 1patient with significant elevated white count in this patient presented to hospital with right flank and lumbar area pain and did have some tenderness to the right flank area however the patient did have a negative UA CT abdominal pelvis urination abnormality to the right kidney rather more concerning for possible focal pneumonia patient also complaining of cough and bring up some greenish sputum pneumonia not entirely excluded 2-patient with multiple antibiotic ALLERGIES that would limit the number of antibiotic safe to use 3-blood and sputum culture currently pending 4-patient did have improvement his white count continue with Rocephin multiple question concern answered Dictation was produced using [employer] dictation software. please excuse any grammatical, word or spelling errors. Time with Patient: Less than 30
--- NOTE | 2024-10-02 15:15 | P.PN ---
Subjective Progress Note Date: 10/02/24 Principal diagnosis: Reason for follow-up is leukocytosis Patient is 64-year-old male with a past medical history significant for diabetes mellitus COPD hypertension hyperlipidemia sleep apnea presenting to the hospital for evaluation of pain to the right flank area as well as right thoracic and lumbar area patient also have elevated white count of 30,000 prompting this consultation. On today's evaluation that is 10/02/2024, Patient is afebrile patient is currently on room air and denies having any shortness of breath, the patient denies any chest pain and cough is decreased intensity, the patient denies any nausea vomiting still complains of right-sided abdominal pain no diarrhea. Patient white count is down to 10.05 creat is 1.0 blood and sputum culture have been negative so far Objective - Vital Signs Vital signs: Vital Signs Temp 97.7 F 10/02/24 07:49 Pulse 80 10/02/24 09:18 Resp 16 10/02/24 07:49 BP 149/81 10/02/24 07:49 Pulse Ox 98 10/02/24 07:49 FiO2 Intake & Output 10/01/24 10/02/24 10/02/24 18:59 06:59 18:59 Intake Total 1080 Output Total 1400 600 Balance -1400 480 Intake: Oral 1080 Output: Urine 1400 600 Other: Voiding Method Urinal Urinal # Voids 1 - Exam GENERAL DESCRIPTION: An elderly male lying in bed in no distress RESPIRATORY SYSTEM: Unlabored breathing , decreased breath sounds at bases HEART: S1 S2 regular rate and rhythm , ABDOMEN: Soft , no tenderness EXTREMITIES: No edema feet - Labs CBC & Chem 7: 10/02/24 04:15 10/02/24 04:15 Labs: Abnormal Lab Results - Last 24 Hours (Table) 10/02/24 10/02/24 Range/Units 04:15 04:15 WBC 10.05 H (4.50-10.00) X 10*3/uL Hgb 12.8 L (13.0-17.0) g/dL MCH 26.4 L (27.0-32.0) pg MCHC 29.8 L (32.0-37.0) g/dL Immature Gran # 0.06 H (0.00-0.04) X 10*3/uL Monocytes # 1.09 H (0.20-1.00) X 10*3/uL Calcium 8.6 L (8.7-10.3) mg/dL Microbiology - Last 24 Hours (Table) 09/30/24 09:25 Blood Culture - Preliminary Blood 09/30/24 14:16 Urine Culture - Final Urine,Clean Catch 09/30/24 15:50 Gram Stain - Final Sputum Sputum Culture - Final Assessment and Plan (1) Leukocytosis Current Visit: Yes Status: Acute Code(s): D72.829 - ELEVATED WHITE BLOOD CELL COUNT, UNSPECIFIED SNOMED Code(s): 067412330 (2) Pneumonia Current Visit: Yes Status: Acute Code(s): J18.9 - PNEUMONIA, UNSPECIFIED ORGANISM SNOMED Code(s): 958807215 (3) Allergy to multiple antibiotics Current Visit: Yes Status: Acute Code(s): Z88.1 - ALLERGY STATUS TO OTHER ANTIBIOTIC AGENTS SNOMED Code(s): 473466756 Plan: 1patient with significant elevated white count in this patient presented to hospital with right flank and lumbar area pain and did have some tenderness to the right flank area however the patient did have a negative UA CT abdominal pelvis urination abnormality to the right kidney rather more concerning for possible focal pneumonia patient also complaining of cough and bring up some greenish sputum pneumonia not entirely excluded 2-patient with multiple antibiotic ALLERGIES that would limit the number of antibiotic safe to use 3-blood and sputum culture has been negative so far and the patient white count almost normalized patient will be continued on Rocephin while inpatient transition to oral Ceftin on discharge 4-patient did have multiple question concern answered in layman term Dictation was produced using [employer]! dictation software. please excuse any grammatical, word or spelling errors. Time with Patient: Less than 30
[2024-10-02] MEDS: HEPARIN SODIUM,PORCINE 5,000 UNIT/ML 1 ML VIAL SQ SCH (15:22)
--- NOTE | 2024-10-02 17:06 | XR ---
EXAMINATION TYPE: XR chest 1V portable DATE OF EXAM: 10/02/2024 4:58 PM COMPARISON: Chest radiographs from 09/30/2024 CLINICAL INDICATION: Male, 64 years old with history of rt pneumonia; TECHNIQUE: XR chest 1V portable Frontal view of the chest. FINDINGS: Lungs/Pleura: There is no evidence of pleural effusion, focal consolidation, or pneumothorax. Pulmonary vascularity: Unremarkable. Heart/mediastinum: Cardiomediastinal silhouette is unremarkable. Musculoskeletal: No acute osseous pathology. IMPRESSION: No acute cardiopulmonary disease/process. [facility], , 10/02/2024 5:03 PM
[2024-10-02 20:01] LABS: Glucose,Whole Blood 96 mg/dL (70-110)
[2024-10-03 06:11] LABS: Glucose,Whole Blood 95 mg/dL (70-110)
[2024-10-03 08:05] VITALS: BP 138/75; PULSE 65; RESP 16; TEMP 98
--- NOTE | 2024-10-03 09:08 | PN ---
PROGRESS NOTE DATE OF SERVICE: 10/01/2024 SUBJECTIVE: This 64-year-old gentleman was admitted with right back pain, also possibly a right lower lobe pneumonia. The patient is closely monitored multiple consultants following the patient closely. The pain has improved. White count is also better. PAST MEDICAL HISTORY: Reviewed. REVIEW OF SYSTEM: Fourteen-point review of systems is negative. CURRENT MEDICATIONS: Reviewed. PHYSICAL EXAM: VITAL SIGNS: Pulse is 89, blood pressure 130/70, respirations 17. HEENT: Conjunctivae normal. CARDIOVASCULAR: S1, S2. RESPIRATIONS: Breath sounds diminished at the bases. A few scattered rhonchi. ABDOMEN: Soft. LABORATORY DATA: WBC 18.9, lactic acid is 2.7. ASSESSMENT: 1. Possible right lower lobe pneumonia with possible sepsis present on admission. 2. Elevated WBC. 3. Abdominal pain, possibly secondary to pleuritis. 4. Asthma, chronic obstructive pulmonary disease. 5. Congestive heart failure. 6. Diabetes mellitus type 2. 7. Hypertension. 8. Hyperlipidemia. 9. History of multiple complex medical issues. RECOMMENDATIONS: Recommend to continue current management and treatment. Otherwise will closely monitor with Infectious Disease and Pulmonary. Guarded prognosis because of the multiple complex medical issues. Further recommendations to follow. MMODL / IJN: [id number] /
--- NOTE | 2024-10-03 09:10 | PN ---
PROGRESS NOTE DATE OF SERVICE: 10/02/2024 SUBJECTIVE: This 64-year-old gentleman admitted with abdominal pain, also found to have suspected small pneumonia. Otherwise, the patient is being closely monitored. PAST MEDICAL HISTORY: Reviewed. PHYSICAL EXAMINATION: VITAL SIGNS: Pulse 88, blood pressure 140/80, respirations 16. CHEST: A few scattered rhonchi. ABDOMEN: Soft, mild diffuse tenderness. No guarding. No rigidity. NERVOUS SYSTEM: No focal deficits. LABORATORY DATA: Reviewed. ASSESSMENT: 1. Possible right lower lobe pneumonia with possible sepsis, present on admission. 2. Abdominal pain possibly secondary to pleuritis, rule out other causes. 3. History of asthma and chronic obstructive pulmonary disease. 4. Congestive heart failure. 5. Diabetes mellitus type 2. 6. Hypertension. 7. Hyperlipidemia. 8. History of multiple complex medical issues. RECOMMENDATIONS: Recommend to continue current management and treatment. Otherwise, continue the antibiotics. Closely follow with consults. Guarded prognosis. Further recommendations to follow. MMODL / IJN: [id number] / MTDMarisol
[2024-10-03 09:17] LABS: Basophils # (A) 0.05 X 10*3/uL (0.00-0.10); Basophils % (A) 0.6 %; Eosinophils # (A) 0.23 X 10*3/uL (0.04-0.35); Eosinophils % (A) 2.6 %; HGB 13.3 g/dL (13.0-17.0); Lymphocytes # (A) 2.75 X 10*3/uL (0.90-5.00); Lymphocytes % (A) 30.6 %; MCH 27.6 pg (27.0-32.0); MCHC 31.7 g/dL (32.0-37.0); MCV 87.1 FL (80.0-97.0); Mean Platelet Volume 11.6 FL (9.5-12.2); Monocytes # (A) 0.87 X 10*3/uL (0.20-1.00); Monocytes % (A) 9.7 %; NRBC Per 100 WBC 0 X 10*3/uL (0.00-0.01); Neutrophils # (A) 5.02 X 10*3/uL (1.80-7.70); Neutrophils % (A) 55.6 %; Platelet Count 167 X 10*3/uL (140-440); RBC 4.82 X 10*6/uL (4.40-5.60); RDW 13.8 % (11.5-14.5)
[2024-10-03 09:40] LABS: BUN/Creat Ratio 13.78 Ratio (12.00-20.00); Blood Urea Nitrogen 12.4 mg/dL (9.0-27.0); Chloride 104 mmol/L (96-109); Glucose 96 mg/dL (70-110); Potassium 3.9 mmol/L (3.5-5.5); Sodium 141 mmol/L (135-145)
[2024-10-03 09:41] LABS: Calcium 8.6 mg/dL (8.7-10.3)
[2024-10-03 11:52] LABS: Glucose,Whole Blood 99 mg/dL (70-110)
--- NOTE | 2024-10-03 14:29 | P.PN ---
Subjective Progress Note Date: 10/03/24 This is a pleasant 64-year-old male patient who has a history of nocturnal hypoxemia maintained on home oxygen at night, hypertension, hyperlipidemia, mild intermittent chronic bronchial asthma, hypothyroidism, diabetes mellitus, gastroesophageal reflux disease. He presented here to the emergency room ye sterday with complaints of right lower quadrant pain radiating around to his back and flank area. CT scan of the abdomen revealed no nephrolithiasis or hydronephrosis. There is a focal patchy opacity posterior medial right lower lobe. Minimal proximal sigmoid diverticulosis without acute diverticulitis. Chest x-ray reveals and exam limited by body habitus. The focal opacity noted on CAT scan is not clearly seen on the chest x-ray. Department. The patient has no real pulmonary complaints. He states he does have some shortness of breath on exertion. Dry nonproductive cough. He is maintaining good O2 saturations in the high 90s on room air. He is afebrile. Hemodynamically stable. Calcitonin negative at 0.04. Initial white count 30.6. Currently white count 18.9. Hemoglobin 14.3. Platelets 184. Sodium 138. Potassium 4.0. Bicarb 25. BUN 20. Creatinine 0.81. Glucose 108. Amylase 52. Lipase 70. Troponin negative x 1. Urine Legionella antigen negative. Urinalysis clean. The patient is seen today October 02, 2024 in follow-up on the regular medical floor. He is currently sitting up in a chair at the bedside. Awake and alert in no acute distress. No worsening shortness of breath, cough or congestion. Maintaining O2 saturations in the 90s on 2 L/min per nasal cannula. He is still having some issues with some right lower quadrant pain. No surgical interve ntion planned. His procalcitonin was negative at 0.04. He does remain on Rocephin per infectious disease. White count improving currently 10.0. Hemoglobin 12.8. Platelets 179. Sodium 141. Potassium 4.0. Bicarb 30. BUN 18. Creatinine 1.0. Glucose 100. The patient is seen today October 03, 2024 in follow-up on the regular medical floor. He is currently sitting up in bed. Awake and alert in no acute distress. He is maintaining good O2 saturations in the 90s on room air. Denies any worsening shortness of breath, cough or congestion. No worsening abdominal pain. Chest x-ray again showed no acute pulmonary process. His procalcitonin was negative. Blood culture revealed no growth. Urine culture revealed no growth. Sputum culture revealed no growth. Normalized to 9.0. Hemoglobin 13.3. Platelets 167. Sodium 141. Potassium 3.9. Bicarb 26. BUN 12. Creatinine 0.9. Glucose 96. Objective - Vital Signs Vital signs: Vital Signs Temp 98.0 F 10/03/24 07:26 Pulse 65 10/03/24 08:00 Resp 16 10/03/24 08:00 BP 138/75 10/03/24 07:26 Pulse Ox 98 10/03/24 07:26 FiO2 Intake & Output 10/02/24 10/03/24 10/03/24 18:59 06:59 18:59 Intake Total 1080 Balance 1080 Intake: Oral 1080 Other: Voiding Method Urinal Urinal Urinal # Voids 3 4 - Exam GENERAL EXAM: Alert, 64-year-old male, sitting in bed, on room air, comfortable in no apparent distress. HEAD: Normocephalic. EYES: Normal reaction of pupils, equal size. NOSE: Clear with pink turbinates. THROAT: No erythema or exudates. NECK: No masses, no JVD. CHEST: No chest wall deformity. LUNGS: Equal air entry with no crackles, wheeze, rhonchi or dullness. CVS: S1 and S2 normal with no audible murmur, regular rhythm. ABDOMEN: No hepatosplenomegaly, normal bowel sounds, no guarding or rigidity. SPINE: No scoliosis or deformity SKIN: No rashes CENTRAL NERVOUS SYSTEM: No focal deficits, tone is normal in all 4 extremities. EXTREMITIES: There is no peripheral edema. No clubbing, no cyanosis. Peripheral pulses are intact. - Labs CBC & Chem 7: 10/03/24 03:11 10/03/24 03:11 Labs: Abnormal Lab Results - Last 24 Hours (Table) 10/03/24 10/03/24 Range/Units 03:11 03:11 MCHC 31.7 L (32.0-37.0) g/dL Immature Gran # 0.08 H (0.00-0.04) X 10*3/uL Calcium 8.6 L (8.7-10.3) mg/dL Microbiology - Last 24 Hours (Table) 09/30/24 09:25 Blood Culture - Preliminary Blood Assessment and Plan Assessment: Acute right lower quadrant pain that radiates to the right flank area and back. CT scan of the abdomen ruled out nephrolithiasis or hydronephrosis. There is minimal proximal sigmoid diverticulosis without acute diverticulitis Leukocytosis of unclear etiology, normalized Right lower lung opacity/atelectasis. Sputum culture revealed no growth. Procalcitonin negative at 0.04 History of nocturnal hypoxemia without significant obstructive sleep apnea, on home oxygen History of mild intermittent chronic bronchial asthma Hypothyroidism Hypertension Diabetes mellitus Hyperlipidemia Gastroesophageal reflux disease Plan: The patient was seen and evaluated Chest x-ray, labs and medications reviewed Again no acute pulmonary process Stable and on room air White count normalized Cleared for discharge Follow-up in our office as scheduled I have personally seen and examined the patient, performed the documentation and the assessment and plan as written. Number of minutes spent on the visit: 10 Dictation was produced using [employer] dictation software. Please excuse any gra mmatical, word or spelling errors.
--- NOTE | 2024-10-04 13:27 | P.DS ---
Providers Date of admission: 09/30/24 06:23 Expected date of discharge: 10/03/24 Attending physician: Mike Fletcher Consults: 09/30/24 08:24 Consult Physician Urgent Consulting Provider: Ev Alan Consult Reason/Comments: SBO? / Lactic acidosis, leukocytosis Do you want consulting provider notified?: Yes 09/30/24 13:58 Consult Physician Routine Consulting Provider: Radha Roman Consult Reason/Comments: pneumonia Do you want consulting provider notified?: Yes Primary care physician: Sayra Deleon DO Hospital Course: Final diagnosis Acute right lower lobe pneumonia with sepsis, present on admission Abdominal pain possibly secondary to pleuritis History of asthma and chronic obstructive pulmonary disease, not in exacerbation Congestive heart failure history, not in exacerbation Diabetes mellitus, type II Morbid obesity with a BMI of 41.3 Hypertension Hyperlipidemia GI prophylaxis DVT prophylaxis Full code Discharge disposition Patient is being discharged in a stable condition with guarded prognosis to home. Patient will follow-up with Dr. Deleon in the outpatient setting upon discharge. Patient is to continue with current medications and outpatient fol low-up with pulmonary as scheduled. Total time taken is greater than 35 minutes. Hospital course This is a 64-year-old male who was recently admitted with abdominal pain with concerns of possible right lower lobe pneumonia with sepsis, present on admission. Patient being evaluated by pulmonary and infectious disease maintained on antibiotics. Patient showing clinical improvement on ceftriaxone and will continue oral Ceftin on discharge. Patient reports to feeling improved and would like to go home. Please refer to other consultation notes for further HPI. Currently no reports of chest pain, shortness of breath, or palpitations. Patient is afebrile. No reports of nausea or vomiting and patient is tolerating diet. Patient will be discharged home today. Physical exam: Gen: This is a 64-year-old male who is awake, alert and oriented x 3, well- developed, well-nourished, morbidly obese HEENT: Head is atraumatic, normocephalic. Pupils equal, round. Sclerae is anicteric. NECK: Supple. No JVD. No lymphadenopathy. No thyromegaly. LUNGS: Diminished breath sounds bilaterally otherwise clear to auscultation. No wheezes or rhonchi. No intercostal retractions. HEART: S1, S2 are muffled ABDOMEN: Soft. Obese bowel sounds are present. No masses. No tenderness. EXTREMITIES: No pedal edema. No calf tenderness. NEUROLOGICAL: Patient is awake, alert and oriented x3. Cranial nerves 2 through 12 are grossly intact. Please refer to medication reconciliation sheet for a list of medications. The impression and plan of care has been dictated by Lyubov Peres, Nurse Practitioner as directed. Dr. Chance MD I have performed a history and examination and MDM of this patient, discussed the same with the dictator, and agree with the dictator's assessment and plan as written ,documented as a scribe. Based on total visit time, I have performed more than 50% of the visit. Patient Condition at Discharge: Fair Plan - Discharge Summary New Discharge Prescriptions: New Mag Hydrox/Al Hydrox/Simeth [Maalox] 15 ml PO Q6HR PRN ml PRN Reason: Indigestion cefuroxime axetiL [Ceftin] 500 mg PO BID 7 Days #14 tab Continue Metoprolol Succinate (ER) [Toprol XL] 50 mg PO BID Furosemide [Lasix] 40 mg PO DAILY Esomeprazole Magnesium [NexIUM] 40 mg PO DAILY Nortriptyline [Pamelor] 20 mg PO HS HYDROcodone/APAP 10-325MG [[place] 10-325] 1 tab PO TID Levothyroxine Sodium [Levoxyl] 200 mcg PO MOTUWETHFRSA Albuterol Inhaler [Ventolin Hfa Inhaler] 2 puff INHALATION RT-Q6H PRN PRN Reason: Shortness Of Breath Rosuvastatin Calcium 5 mg PO DAILY Montelukast [Singulair] 10 mg PO HS Cyclobenzaprine [Flexeril] 10 mg PO TID amLODIPine [Norvasc] 2.5 mg PO DAILY Tiotropium 2.5 Mcg/Puff [Spiriva Respimat 2.5 Mcg] 2 puff INHALATION RT-DAILY Discharge Medication List Esomeprazole Magnesium [NexIUM] 40 mg PO DAILY 06/20/14 [History] Furosemide [Lasix] 40 mg PO DAILY 06/20/14 [History] Metoprolol Succinate (ER) [Toprol XL] 50 mg PO BID 06/20/14 [History] Nortriptyline [Pamelor] 20 mg PO HS 06/20/14 [History] Albuterol Inhaler [Ventolin Hfa Inhaler] 2 puff INHALATION RT-Q6H PRN 06/02/18 [History] HYDROcodone/APAP 10-325MG [[place] 10-325] 1 tab PO TID 06/02/18 [History] Levothyroxine Sodium [Levoxyl] 200 mcg PO MOTUWETHFRSA 06/02/18 [History] Montelukast [Singulair] 10 mg PO HS 01/03/24 [History] Rosuvastatin Calcium 5 mg PO DAILY 01/03/24 [History] amLODIPine [Norvasc] 2.5 mg PO DAILY 01/03/24 [History] Cyclobenzaprine [Flexeril] 10 mg PO TID 09/30/24 [History] Tiotropium 2.5 Mcg/Puff [Spiriva Respimat 2.5 Mcg] 2 puff INHALATION RT-DAILY 09/30/24 [History] Mag Hydrox/Al Hydrox/Simeth [Maalox] 15 ml PO Q6HR PRN ml 10/03/24 [Rx] cefuroxime axetiL [Ceftin] 500 mg PO BID 7 Days #14 tab 10/03/24 [Rx] Follow up Appointment(s)/Referral(s): Sayra Deleon DO [Primary Care Provider] - 1-2 days (office not answering Please call to schedule appointment) Ban Quarles MD [STAFF PHYSICIAN] - 1 Week (office closed at time of discharge Please call to schedule appointment) Patient Instructions/Handouts: Viral Pneumonia (DC) Activity/Diet/Wound Care/Special Instructions: Activity limited until follow-up Follow-up with primary care provider on discharge Follow-up GI outpatient Continue taking medications as prescribed Discharge Disposition: HOME SELF-CARE
--- NOTE | 2024-10-05 14:24 | CDI ---
Documentation Clarification Form Date: 10/05/2024 02:06:11 PM From: Jasmina Cullen Phone: Admit Date: 09/30/2024 06:23:00 AM Patient Name: Paul Grubbs Visit Number: [id number] Discharge Date: 10/03/2024 02:18:00 PM ATTENTION: The Clinical Documentation Specialists (CDI) and [facility] Coding Staff appreciate your assistance in clarifying documentation.Please respond to the clarification below the line at the bottom and electronically sign.The CDI & [facility] Coding staff will review the response and follow-up if needed.Please note: Queries are made part of the Legal Health Record.If you have any questions, please contact the author of this message via ITS. Doctor/Provider: Ev Alan There is documentation of pneumonia in DS on 10/03/2024. Additional clarification is requested. History/Risk Factors: this is a 64-year-old gentleman with a past medical history ofasthma, COPD,history of CHF, was complaining ofabdominal painfrom loin to groin. The patient also had some abdominal discomfort. The patient came [facility] and therewas no evidence ofurolithiasis, but aright lower lobe infiltratewas suspected, pyelonephritisalso considered as thepossibility, but UA is not available. Lactic acidelevated. There isno history ofanyfever,rigors, orchills. Clinical Indicators: on 09/30 consult note -patient with significantelevated white countin this patient presented to hospital with right flank and lumbar areapainand did have some tenderness to the right flank area however the patient did have anegativeUACT abdominal pelvis urinationabnormalityto the right kidney rather more concerning for possiblefocalpneumoniapatient also complaining ofcoughand bring up some greenish sputumpneumonianot entirely excluded Pn 10/01 -Apparently he was seen by pulmonary and they do not believe there is pneumoniapresent. On 10/02 pn -Seen and examined today on 10/02/2024, patient is feeling better, continues to have some right flank and right lower quadrant pain, his leukocytosis is significantly improved remains on antibiotics procalcitonin level is 0.04, he is on Rocephin as per infectious disease, chest x-ray findings and pulmonary findings are not consistent withpneumonia. On 10/02 pn -patient with significant elevated white count in this patient presented to hospital with right flank and lumbar area pain and did have some tenderness to the right flank area however the patient did have a negative UA CT abdominal pelvis urination abnormality to the right kidney rather more concerning for possible focalpneumoniapatient also complaining of cough and bring up some greenish sputumpneumonianot entirely excluded On 10/03 ds Acute right lower lobepneumoniawithsepsis, present on admission This is a 64-year-old male who was recently admitted withabdominal painwith concerns ofpossibleright lower lobepneumoniawithsepsis, present on admission. Patient being evaluated by pulmonary andinfectious disease maintained on antibiotics Progo ds -rete 10/01/2024(4) Treatment: Antibiotics, ceftriaxone and will continue oral Ceftin on discharge Can you please clarify If pneumonia is present? [x ] Yes, Pneumonia is present [ ] No, Pneumonia is not present [ ] Other, please specify [ ] Unable to determine (Template Last Revised: December 2020) MTDD
--- NOTE | 2024-10-05 14:57 | P.PN ---
Subjective Progress Note Date: 10/03/24 Principal diagnosis: Reason for follow-up is leukocytosis Patient is 64-year-old male with a past medical history significant for diabetes mellitus COPD hypertension hyperlipidemia sleep apnea presenting to the hospital for evaluation of pain to the right flank area as well as right thoracic and lumbar area patient also have elevated white count of 30,000 prompting this consultation. On today's evaluation that is 10/03/2024, patient has been afebrile, patient is breathing comfortably and is currently on room air, patient right lower rib cage/upper back pain has improved patient denies having any nausea vomiting abdominal pain or diarrhea feeling better wants to go home. Patient white count is down to 9000, creatinine is 0.9 blood culture have been negative as well as sputum culture Objective - Vital Signs Vital signs: Vital Signs Temp 98.0 F 10/03/24 07:26 Pulse 65 10/03/24 08:00 Resp 16 10/03/24 08:00 BP 138/75 10/03/24 07:26 Pulse Ox 98 10/03/24 07:26 FiO2 Intake & Output 10/02/24 10/03/24 10/03/24 18:59 06:59 18:59 Intake Total 1080 Balance 1080 Intake: Oral 1080 Other: Voiding Method Urinal Urinal Urinal # Voids 3 4 - Exam GENERAL DESCRIPTION: An elderly male lying in bed in no distress RESPIRATORY SYSTEM: Unlabored breathing , decreased breath sounds at bases HEART: S1 S2 regular rate and rhythm , ABDOMEN: Soft , no tenderness EXTREMITIES: No edema feet - Labs CBC & Chem 7: 10/03/24 03:11 10/03/24 03:11 Labs: Abnormal Lab Results - Last 24 Hours (Table) 10/03/24 10/03/24 Range/Units 03:11 03:11 MCHC 31.7 L (32.0-37.0) g/dL Immature Gran # 0.08 H (0.00-0.04) X 10*3/uL Calcium 8.6 L (8.7-10.3) mg/dL Microbiology - Last 24 Hours (Table) 09/30/24 09:25 Blood Culture - Preliminary Blood Assessment and Plan (1) Leukocytosis Status: Acute Code(s): D72.829 - ELEVATED WHITE BLOOD CELL COUNT, UNSPECIFIED SNOMED Code(s): 649474512 (2) Pneumonia Status: Acute Code(s): J18.9 - PNEUMONIA, UNSPECIFIED ORGANISM SNOMED Code(s): 333592678 (3) Allergy to multiple antibiotics Status: Acute Code(s): Z88.1 - ALLERGY STATUS TO OTHER ANTIBIOTIC AGENTS SNOMED Code(s): 861262323 Plan: 1patient with significant elevated white count in this patient presented to hospital with right flank and lumbar area pain and did have some tenderness to the right flank area however the patient did have a negative UA CT abdominal pelvis urination abnormality to the right kidney rather more concerning for possible focal pneumonia patient also complaining of cough and bring up some greenish sputum pneumonia likely etiology of this elevated white count 2-patient with multiple antibiotic ALLERGIES that would limit the number of antibiotic safe to use 3-blood and sputum culture has been negative so far and the patient white count has normalized and culture have been negative we will consider short course of oral Ceftin to finish his course of therapy Dictation was produced using [email or web address] dictation software. please excuse any grammatical, word or spelling errors. Time with Patient: Less than 30
== END 2024-10-03 14:18 | disposition home or self-care (01) | DRG 871 ==
LOC: EC 05:12 → 5NMEDONC 06:23 → 3SCARD 14:05 → 4SSUR 10-01 08:05
PROVIDERS: ADMIT Hospitalist; ATTEND Hospitalist
DX: A41.9 Sepsis, unspecified organism (principal); J18.9 Pneumonia, unspecified organism; Z68.41 Body mass index [BMI] 40.0-44.9, adult; J98.11 Atelectasis; E87.20 Acidosis, unspecified; N12 Tubulo-interstitial nephritis, not specified as acute or chronic; J44.0 Chronic obstructive pulmonary disease with (acute) lower respiratory infection; R09.1 Pleurisy; I11.0 Hypertensive heart disease with heart failure; I50.9 Heart failure, unspecified; E11.9 Type 2 diabetes mellitus without complications; E66.01 Morbid (severe) obesity due to excess calories; E78.5 Hyperlipidemia, unspecified; K57.30 Diverticulosis of large intestine without perforation or abscess without bleeding; M54.50 Low back pain, unspecified; E03.9 Hypothyroidism, unspecified; K21.9 Gastro-esophageal reflux disease without esophagitis; Z79.899 Other long term (current) drug therapy; Z88.2 Allergy status to sulfonamides; Z88.0 Allergy status to penicillin; Z91.013 Allergy to seafood; Z79.890 Hormone replacement therapy; Z88.1 Allergy status to other antibiotic agents
CPT/HCPCS: 36415; 71045; 71046; 74176; 80048; 80053; 81003; 82150; 83605; 83690; 83735; 84145; 84484; 85025; 85610; 85730; 87040; 87070; 87086; 87205; 87449; 93005; 94640; 96361; 96365; 96366; 96375; 96376; 99285

== ENCOUNTER 2024-10-19 08:00 | Day surgery (SDC) | payer MEDICARE, OTHER ==
[2024-10-14 14:36] VITALS: BMI 40.1
[~2024-10-19 08:00] MED LIST changes: -DEXAMETHASONE SOD PHOSPHATE 10 MG/ML 1 ML VIAL IV ONE; -HEPARIN SODIUM,PORCINE 5,000 UNIT/ML 1 ML VIAL SQ ONE; -LACTATED RINGERS 1,000 ML IV SCH; +LIDOCAINE 1% (10MG/ML) FOR IV START INTRADERMA PRN; -LIDOCAINE 1% 20 ML VIAL (10MG/ML) FOR IV START INTRADERMA PRN; -MIDAZOLAM 2 MG/2 ML VIAL IV PRN; -ONDANSETRON 4 MG/2 ML VIAL IVP ONE; -SCOPOLAMINE 1.5MG/72HR PATCH TRANSDERM ONE; -ceFAZolin IN SWFI 2 GM/20 ML SYRINGE IVP ONE
[2024-10-19 08:32] VITALS: TEMP 97.9
[2024-10-19] MEDS: LACTATED RINGERS 1,000 ML IV SCH (08:39)
[2024-10-19] MEDS: IV FLUID CONTINUATION 1,000 ML IV ONE (08:39)
[2024-10-19] MEDS: ONDANSETRON 4 MG/2 ML VIAL IVP PRN (08:41)
[2024-10-19] MEDS: IPRATROPIUM-ALBUTEROL 3 ML NEB INHALATION STA (08:41)
[2024-10-19] MEDS: DEXAMETHASONE SOD PHOSPHATE 4 MG/ML 1 ML VIAL IVP STA (08:41)
[2024-10-19] MEDS: MIDAZOLAM 2 MG/2 ML VIAL IV ONE (08:42)
[2024-10-19] MEDS ORDERED: LIDOCAINE 2% (PF) 20 MG/ML 5 ML VIAL ONE (09:35)
[2024-10-19] MEDS ORDERED: PROPOFOL 10 MG/ML 20 ML VIAL IV ONE (09:35)
--- NOTE | 2024-10-19 10:03 | P.PCN ---
Date of Procedure: 10/19/24 Procedure(s) Performed: Brief history: Patient is a pleasant 64-year-old pleasant white male scheduled for an elective upper endoscopy as well as colonoscopy as a part of evaluation of GERD and recent episode of severe abdominal pain and rectal bleeding Procedure performed: Esophagogastroduodenoscopy with biopsy Colonoscopy with snare polypectomy Preoperative diagnosis: Longstanding history of GERD Recent episode of severe right-sided abdominal pain and rectal bleeding Anesthesia: MAC Procedure: After informed consent was obtained from the patient was brought into the endoscopy unit and IV sedation was administered by anesthesia under continuous monitoring. Initially upper endoscopy was done. The Olympus GF 160 video endoscope was inserted inserted into the mouth and esophagus intubated without any difficulty and was gradually advanced into the stomach and duodenum and carefully examined. The bulb and second part of the duodenum appeared normal. The scope was then withdrawn into the stomach adequately insufflated with air and upon careful examination the antrum and mild gastritis and biopsies were done from this area. Mucosa body, cardia and fundus appeared normal. The scope was then withdrawn into the esophagus. The GE junction was located at 40 cm to the incisors. It appeared regular with no erythema erosions or ulcerations. Rest of the esophagus appeared normal. Patient tolerated the procedure well. At this time the patient continued to remain sedation. Initial digital rectal examination was normal. Olympus CF 160 video colonoscope was then inserted into the rectum and gradually advanced to the cecum with severe difficulty. Careful examination was performed as the scope was gradually being withdrawn. The prep was excellent. The cecum, ascending colon appeared normal. The transverse colon there was a 5 mm polyp that is removed by cold snare polypectomy. Rest of the, transverse colon, descending colon, sigmoid colon and rectum appeared normal. Retroflexion was performed in the rectum and grade 2 internal hemorrhoid were noted. Patient tolerated the procedure well. Impression: 1. Upper endoscopy revealed mild antral gastritis but no evidence of esophagitis or peptic ulcer disease 2. Colonoscopy revealed 5 mm transverse colon polyp status post cold snare polypectomy and grade 2 internal hemorrhoids Recommendations: Findings of this examination were discussed with the patient as well as his family. He was was advised to follow-up with the biopsy results. If the biopsy reveals adenoma he can have repeat colonoscopy in 5 years.
[2024-10-19 10:22] VITALS: RESP 16
[2024-10-19 10:30] VITALS: BP 129/78; PULSE 68
== END 2024-10-19 10:50 | disposition home or self-care (01) ==
LOC: ORWHC2ENDO 08:00
PROVIDERS: ATTEND Internal Medicine Gastroenterology
DX: K29.50 Unspecified chronic gastritis without bleeding (principal); K63.5 Polyp of colon; K21.9 Gastro-esophageal reflux disease without esophagitis; K64.1 Second degree hemorrhoids; I11.0 Hypertensive heart disease with heart failure; I50.9 Heart failure, unspecified; E78.5 Hyperlipidemia, unspecified; I34.1 Nonrheumatic mitral (valve) prolapse; J44.89 Other specified chronic obstructive pulmonary disease; G47.33 Obstructive sleep apnea (adult) (pediatric); F17.210 Nicotine dependence, cigarettes, uncomplicated; F41.9 Anxiety disorder, unspecified; E07.9 Disorder of thyroid, unspecified; F32.A Depression, unspecified; Z99.89 Dependence on other enabling machines and devices; Z90.89 Acquired absence of other organs; Z90.49 Acquired absence of other specified parts of digestive tract; Z90.10 Acquired absence of unspecified breast and nipple; Z88.0 Allergy status to penicillin; Z88.5 Allergy status to narcotic agent; Z91.013 Allergy to seafood; Z79.890 Hormone replacement therapy; Z79.51 Long term (current) use of inhaled steroids; Z79.899 Other long term (current) drug therapy
CPT/HCPCS: 88305; 45385; 43239; J2250; J1100; J2405; J2704; J2003

== ENCOUNTER → 2024-10-28 | Outpatient (CLI) | payer MEDICARE, OTHER ==
[2024-10-28 15:43] LABS: Basophils # (A) 0.06 X 10*3/uL (0.00-0.10); Basophils % (A) 0.8 %; Eosinophils # (A) 0.19 X 10*3/uL (0.04-0.35); Eosinophils % (A) 2.7 %; HCT 47.2 % (39.6-50.0); HGB 15.2 g/dL (13.0-17.0); Lymphocytes # (A) 1.65 X 10*3/uL (0.90-5.00); Lymphocytes % (A) 23.3 %; MCH 27.1 pg (27.0-32.0); MCHC 32.2 g/dL (32.0-37.0); MCV 84.3 FL (80.0-97.0); Monocytes # (A) 0.73 X 10*3/uL (0.20-1.00); Monocytes % (A) 10.3 %; NRBC Per 100 WBC 0 X 10*3/uL (0.00-0.01); Neutrophils # (A) 4.41 X 10*3/uL (1.80-7.70); Neutrophils % (A) 62.3 %; Platelet Count 228 X 10*3/uL (140-440); RDW 13.7 % (11.5-14.5); WBC 7.08 X 10*3/uL (4.50-10.00)
== END | disposition home or self-care (01) ==
LOC: LABWHC1 10:18
PROVIDERS: ATTEND Internal Medicine Gastroenterology
DX: K62.5 Hemorrhage of anus and rectum (principal)
CPT/HCPCS: 36415; 85025

== ENCOUNTER → 2025-02-08 | Outpatient (CLI) | payer MEDICARE, OTHER | END | disposition home or self-care (01) | LOC: RADCTMAIN 09:32 | PROVIDERS: ATTEND Family Medicine | DX: Z53.9 Procedure and treatment not carried out, unspecified reason (principal) ==

== ENCOUNTER → 2025-02-08 | Outpatient (CLI) | payer MEDICARE, OTHER ==
--- NOTE | 2025-02-08 09:24 | MM ---
Reason for Exam: Follow-up at short interval from prior study. Last screening mammogram was performed 6 month(s) ago. Patient History: 2009, Excisional Biopsy on the Left side. Maternal aunt had breast cancer. Maternal grandmother had ovarian cancer, age 48. Mother had breast cancer under age 50. Prior Study Comparison: 10/09/2011 Bilateral Diagnostic Mammogram, [facility]. 03/22/2013 Bilateral Diagnostic Mammogram, [facility]. 08/10/2024 Bilateral MG 3D diag mammo w/cad D[facility], [facility]. Tissue Density: Left: The breasts are almost entirely fatty. Findings: Analyzed By CAD. Small amount of retroareolar glandular tissue noted. Not significantly changed from priors. No new suspicious masses, calcifications or distortions. Overall Assessment: Incomplete: need additional imaging evaluation, BI-RAD 0 Management: Diagnostic Breast Ultrasound of the left breast. Findings compatible with gynecomastia. Results were given to the patient verbally at the time of exam. Patient should continue monthly self-breast exams. A clinical breast exam by your physician is recommended on an annual basis. This exam should not preclude additional follow-up of suspicious palpable abnormalities. Note on Sugar scores and lifetime risk: 1. A Sugar score greater than 3% is considered moderate risk. If this is the case, consider specialist referral to assess eligibility for a risk reducing agent. 2. If overall lifetime risk for the development of breast cancer is 20% or higher, the patient may qualify for future screening with alternating mammogram and breast MRI. [facility], , 02/08/2025 9:20 AM. Electronically signed and approved by: Ar Montero DO
--- NOTE | 2025-02-08 09:25 | USB ---
Reason for Exam: Follow-up at short interval from prior study. Patient History: 2009, Excisional Biopsy on the Left side. Maternal aunt had breast cancer. Maternal grandmother had ovarian cancer, age 48. Mother had breast cancer under age 50. Technique: Method: Targeted. Prior Study Comparison: 10/09/2011 Bilateral Diagnostic Mammogram, [facility]. 03/22/2013 Bilateral Diagnostic Mammogram, [facility]. 08/10/2024 Bilateral MG 3D diag mammo w/cad D[facility], [facility]. Findings: The axilla of the left breast and the retroareolar of the left breast were scanned. Technique utilized:US breast limited LT Image; Ultrasound imaging of: Retroareolar region and axilla. No evidence for organizing fluid collection or mass. Minimal fibroglandular tissue posterior to the nipple. No abnormal lymphadenopathy in the left axilla. Overall Assessment: Benign, BI-RAD 2 Management: No follow up is required for this exam. A clinical breast exam by your physician is recommended on an annual basis and results should be correlated with mammographic findings. This exam should not preclude additional follow-up of suspicious palpable abnormalities. Results were given to the patient verbally at the time of exam. [facility], , 02/08/2025 9:22 AM. Electronically signed and approved by: Ar Montero DO
== END | disposition home or self-care (01) ==
LOC: RADMAMWWP 08:36
PROVIDERS: ATTEND Surgery
DX: R92.8 Other abnormal and inconclusive findings on diagnostic imaging of breast (principal); R92.312 Mammographic fatty tissue density, left breast; Z80.3 Family history of malignant neoplasm of breast
CPT/HCPCS: 77065; 76642; G0279; 77061

== ENCOUNTER → 2025-03-29 | Outpatient (CLI) | payer MEDICARE, OTHER ==
[2025-03-29 15:04] LABS: Basophils # (A) 0.04 X 10*3/uL (0.00-0.10); Basophils % (A) 0.6 %; Eosinophils # (A) 0.13 X 10*3/uL (0.04-0.35); Eosinophils % (A) 1.9 %; HCT 46.6 % (39.6-50.0); HGB 14.8 g/dL (13.0-17.0); Lymphocytes % (A) 22.3 %; MCH 26.7 pg (27.0-32.0); MCHC 31.8 g/dL (32.0-37.0); Mean Platelet Volume 11.4 FL (9.5-12.2); Monocytes # (A) 0.72 X 10*3/uL (0.20-1.00); Monocytes % (A) 10.7 %; NRBC Per 100 WBC 0 X 10*3/uL (0.00-0.01); Neutrophils # (A) 4.32 X 10*3/uL (1.80-7.70); Neutrophils % (A) 64.4 %; Platelet Count 215 X 10*3/uL (140-440); RBC 5.55 X 10*6/uL (4.40-5.60); RDW 13.6 % (11.5-14.5); WBC 6.72 X 10*3/uL (4.50-10.00)
[2025-03-29 15:20] LABS: Appearance,Urine Clear (Clear); Bilirubin,Urine Negative (Negative); Blood,Urine Negative (Negative); Color,Urine Yellow (Yellow); Ketones,Urine Negative (Negative); Nitrite,Urine Negative (Negative); PH, Urine 7.5; Specific Gravity,Urine 1.006 (1.001-1.030); Urobilinogen,Urine 0.2 E.U./DL
[2025-03-29 15:38] LABS: % Iron Saturation 14.79 (15.00-50.00); Chol/HDL Ratio 4.16 Ratio; Ferritin 97.3 ng/mL (22.0-322.0); Iron 59 UG/DL (65-175); LDL Cholesterol,Calculated 56.7 mg/dL (0.0-131.0); Magnesium 1.7 mg/dL (1.5-2.4); T4, Free (Free Thyroxine) 1.14 ng/dL (0.80-1.80); Total Iron Binding Capacity 399 UG/DL (228-460)
[2025-03-29 16:02] LABS: ALT 29 U/L (10-49); AST 31 U/L (14-35); Albumin 4.3 g/dL (3.8-4.9); Albumin/Globulin Ratio 1.79 Ratio (1.60-3.17); Alkaline Phosphatase 38 U/L (41-126); Blood Urea Nitrogen 12.6 mg/dL (9.0-27.0); Calcium 9.5 mg/dL (8.7-10.3); Chloride 97 mmol/L (96-109); Globulin 2.4 g/dL (1.6-3.3); Glucose 101 mg/dL (70-110); Potassium 4.5 mmol/L (3.5-5.5); Sodium 136 mmol/L (135-145); Total Bilirubin 0.4 mg/dL (0.3-1.2); Total Protein 6.7 g/dL (6.2-8.2)
[2025-03-29 17:06] LABS: Microalbumin Creatinine Ratio <37 mg/g Cr (0-30); Urine Creatinine 32.1 mg/dL (39.0-259.0)
--- NOTE | 2025-03-30 07:55 | US ---
EXAMINATION TYPE: US kidneys/renal and bladder DATE OF EXAM: 03/29/2025 COMPARISON: CT 09/30/2024 CLINICAL INDICATION: Male, 65 years old with history of N39.0 UTI; Low back pain x 1 year with nausea TECHNIQUE: Grayscale imaging of the bilateral kidneys and urinary bladder: FINDINGS: EXAM MEASUREMENTS: Right Kidney: 14.1 x 5.1 x 5.0 cm Left Kidney: 12.6 x 5.9 x 6.3 cm Post Void Residual Volume: NA mL Right Kidney: wnl, no evidence for hydronephrosis, mass or renal calculus. Left Kidney: wnl, no evidence for hydronephrosis, mass or renal calculus. Bladder: wnl Bilateral Jets seen: Yes Normal Post Void Residual: NA There is no evidence for hydronephrosis at this point in time. No nephrolithiasis is seen. No magdalene s are identified. The urinary bladder is anechoic. IMPRESSION: 1. Unremarkable renal ultrasound [facility], , 03/30/2025 7:53 AM
== END | disposition home or self-care (01) ==
LOC: RADUSWWP 10:06
PROVIDERS: ATTEND Internal Medicine
DX: Z01.818 Encounter for other preprocedural examination (principal); N39.0 Urinary tract infection, site not specified; E03.9 Hypothyroidism, unspecified; D64.9 Anemia, unspecified; R80.9 Proteinuria, unspecified; E55.9 Vitamin D deficiency, unspecified; E78.5 Hyperlipidemia, unspecified
CPT/HCPCS: 76770; 80053; 80061; 81003; 82043; 82306; 82570; 82728; 83036; 83540; 83550; 83735; 84439; 84443; 85025